=== PATIENT | male | born 1935 | race Caucasian/White ===

== ENCOUNTER → 2016-12-27 | Outpatient (CLI) | payer OTHER ==
[~2016-12-27] MED LIST: ASPI-461 PO; CHOL20005 PO; CYAN100020 PO; DORZ1SOL OPB; FINA5TAB PO; LEVO75TA5 PO; LISI-461 PO; MULT-506 PO; RSTOPS OP; SIMV-150 PO
== END | disposition home or self-care (01) ==
LOC: C.PATHSPEC 17:17
PROVIDERS: ATTEND Plastic Surgery
DX: C44.222 Squamous cell carcinoma of skin of right ear and external auricular canal (principal)

== ENCOUNTER → 2018-01-01 | Day surgery (SDC) | payer OTHER ==
[2017-12-26 08:45] VITALS: BMI 26.0
[~2018-01-01] VITALS: Ht 180.3 cm; Wt 86.4 kg
[~2018-01-01] MED LIST changes: +CARV25TA2 PO; -CHOL20005 PO; -CYAN100020 PO; +CYCL0.052 OP; -DORZ1SOL OPB; +DORZ2SOL19 OP; +LIDOCAINE HCL 2% 2 ML VIAL (20MG/ML) ONE; -LISI-461 PO; +LISI20TA3 PO; +MIDAZOLAM HCL 1 MG/ML 2ML VIAL ONE; -MULT-506 PO; +ONDANSETRON INJ 2 MG/ML 2 ML VIAL ONE; +PROPOFOL IV EMULSION 10 MG/ML 20 ML VIAL ONE; -RSTOPS OP; +SODIUM CHLORIDE 0.9% 500ML 500 ML IV ONE; +TAMS0.4C38 PO
[2018-01-01 08:05] VITALS: Ht 180.3 cm; Wt 86.4 kg
[2018-01-01 08:16] VITALS: TEMP 36.3
--- NOTE | 2018-01-01 08:23 | Endo History and Physical ---
History & Physical Date of Service: Jan 01, 2018. Chief Complaint: HISTORY OF POLYPS Referring Physician: DR. ADAME History of Present Illness History of polyps. Past Medical History High Cholesterol, Heart Disease, Hypertension, Thyroid Disease Past Surgical History Hx Cardiac Surgery: Yes (HEART CATH, NO STENTS @ [facility]) Hx Internal Defibrillator: Yes (MEDITRONIC, PLACED 11/16/2014) Hx Pacemaker: Yes (MEDITRONIC, PLACED 11/16/2014) Hx Abdominal Surgery: Yes (HERNIA REPAIR) Hx of Implantable Prosthesis: No Hx Post-Op Nausea and Vomiting: No Hx Cancer Surgery: Yes (SKIN CANCER SPOTS REMOVED) Hx Thoracic Surgery: No Hx Orthopedic: No Hx Urinary Tract Surgery: No Family History Esophogeal CA Social History Smoking Status: Never Smoker Hx Substance Use: No Hx Alcohol Use: Yes (A BEER A MONTH) Allergies Coded Allergies: No Known Allergies (Unverified , 01/01/18) Current Medications Reported Home Medications Medications Dose Route/Sig Max Daily Dose Days Date Category Coreg (Carvedilol) 25 Mg Tab 25 Mg PO BID 12/26/17 Reported Flomax (Tamsulosin Hcl) 0.4 Mg Cap 0.4 Mg PO QAM 12/26/17 Reported Trusopt Oph (Dorzolamide Hcl) 2 % Colleen 1 Drops OP BID 12/26/17 Reported Restasis (Cyclosporine (Ophth)) 0.05 % Emu 1 Drop OP BID 12/26/17 Reported Prinivil (Lisinopril) 20 Mg Tab 20 Mg PO QAM 12/26/17 Reported Simvastatin 10 Mg Tab 10 Mg PO HS 09/22/14 Reported Proscar (Finasteride) 5 Mg Tab 5 Mg PO QAM 09/22/14 Reported Aspirin 81 Mg Tab 81 Mg PO QAM 09/22/14 Reported Levothyroxine Sodium 75 Mcg Tab 75 Mcg PO QAM 09/22/14 Reported Vital Signs Weight (Kilograms): 86.36 Height (Feet): 5 Height (Inches): 11 Date Time Temp Pulse Resp B/P (MAP) Pulse Ox O2 Delivery O2 Flow Rate FiO2 01/01/18 08:16 36.3 59 18 170/103 (125) 96 Room Air Physical Exam General Appearance: WD/WN, no apparent distress Respiratory/Chest: Auscultation: breath sounds normal, no wheezing Cardiovascular: Heart Auscultation: RRR, no murmurs Abdomen: Inspection & Palpation: soft, no tenderness, guarding & rebound Assessment and Plan Colonoscopy today.
--- NOTE | 2018-01-01 08:59 | Discharge Instructions ---
Endoscopy Patient Instructions Date / Procedure(s) Performed Jan 01, 2018. Colonoscopy Allergy Information Coded Allergies: No Known Allergies (Unverified , 01/01/18) Discharge Date / Findings Jan 01, 2018. Small polyp removed, diverticulosis. Medication Instructions Stopped Medication(s): ASA STOPPED 12/29/17 Restart Stopped Medication(s): Restart all medications today Provider Instructions Activity Restrictions - No exercising or heavy lifting for 24 hours. - Do not drink alcohol the day of the procedure. - Do not drive a car or operate machinery until the day after the procedure. - Do not make any important decisions or sign important papers in 24 hours after the procedure. Following Day: - Return to full activity which may include returning to work/school. Diet Start your diet with liquids and light foods (jello, soup, juice, toast). Then eat your usual diet if not nauseated. Treatment For Common After Affects For mild abdominal pain, bloating, or excessive gas: - Rest - Eat lightly - Lie on right side Follow-Up Information Follow-up with DR. ADAME as scheduled Anesthesia Information What You Should Know You have had a procedure that required some medicine to reduce anxiety and discomfort. This treatment is called moderate sedation. After receiving the treatment, you may be sleepy, but you will be able to breathe on your own. The effects of the treatment may last for several hours. Follow these instructions along with Activity/Diet recommendations noted above: * Do NOT do anything where dizziness or clumsiness would be dangerous. * Rest quietly at home today, then you can be up and about tomorrow. * Have a responsible person stay with you the rest of today. * You may have had an I.V. today. If so, you may take the dressing off later today. Recommendations Call your doctor if: * Trouble breathing * Continuous vomiting for more than 24 hours * Temperature above 101 degrees * Severe abdominal pain or bloating * Pain not relieved by pain medicine ordered * There is increased drainage or redness from any incision * A large amount of rectal bleeding greater than 2-3 tablespoons. (If you had a polyp/s removed or have hemorrhoids, a small amount of blood - from the rectum is to be expected.) * You have any unanswered questions or concerns. IN THE EVENT OF A SERIOUS EMERGENCY, GO TO THE NEAREST EMERGENCY ROOM Your discharge instructions were prepared by provider Harry Evans. Patient Instructions Signature Page Horace Roper Patient (or Guardian) Signature/Date: I have read and understand the instructions given to me by my caregivers. Caregiver/RN/Doctor Signature/Date: The above-named patient and/or guardian has received patient instructions on this date. + Original Patient Signature Page (only) stays with chart. Please make copy for patient.
[2018-01-01 09:30] VITALS: BP 154/90; PULSE 65; O2SAT 96
--- NOTE | 2018-01-01 09:44 | GI REPORT ---
Patient Name: Horace Roper Procedure Date: 01/01/2018 8:25 AM Date of : 1935 Admit Type: Outpatient Age: 82 Gender: Male Attending MD: Harry Evans MD Procedure: Colonoscopy Providers: Harry Evans MD Referring MD: Zac Harrison Indications: High risk colon cancer surveillance: Personal history of colonic polyps Medicines: Propofol per Anesthesia Complications: No immediate complications. Estimated blood loss: None. Estimated Blood Loss: Estimated blood loss: none. Procedure: Pre-Anesthesia Assessment: - Prior to the procedure, a History and Physical was performed, and patient medications, allergies and sensitivities were reviewed. The patient's tolerance of previous anesthesia was reviewed. - ASA Grade Assessment: III - A patient with severe systemic disease. After I obtained informed consent, the scope was passed under direct vision. Throughout the procedure, the patient's blood pressure, pulse, and oxygen saturations were monitored continuously. The scope was introduced through the anus and advanced to the terminal ileum, with identification of the appendiceal orifice and IC valve. The colonoscopy was performed with ease. The patient tolerated the procedure well. The quality of the bowel preparation was adequate to identify polyps. The bowel preparation used was split dose MIralax. Findings: A 2 mm polyp was found in the transverse colon. The polyp was sessile. The polyp was removed with a cold snare. Resection and retrieval were complete. Multiple large-mouthed diverticula were found in the entire colon. Verification of patient identification for the specimen was done by the physician and nurse using the patient's name, date and medical record number. Impression: - One 2 mm polyp in the transverse colon, removed with a cold snare. Resected and retrieved. - Diverticulosis in the entire examined colon. - The colon was otherwise normal to the terminal ileum with retroflexed views of the ascending colon and rectum. Recommendation: - Await pathology results. - Discharge patient to home (with escort). Harry Evans M.D. Harry Evans MD 01/01/2018 9:44:18 AM This report has been signed electronically. Note Initiated On: 01/01/2018 8:25 AM Number of Addenda: 0 I attest to the content of the Intraoperative Record and orders documented therein, exceptions below {[id number]}
--- NOTE | 2018-01-01 10:02 | Anesthesiology Progress Note ---
Anesthesia Post Op Note Date & Time Jan 01, 2018 at 10:02 Vital Signs Pain Intensity: 0 Vital Signs Past 12 Hours Date Time Temp Pulse Resp B/P (MAP) Pulse Ox O2 Delivery O2 Flow Rate FiO2 01/01/18 09:30 65 16 154/90 (111) 96 Room Air 01/01/18 09:16 65 16 129/76 (93) 96 Room Air 01/01/18 09:08 65 16 148/93 (111) 95 Room Air 01/01/18 09:01 65 16 125/77 (93) 97 Room Air 01/01/18 08:16 36.3 59 18 170/103 (125) 96 Room Air Notes Mental Status: alert / awake / arousable, participated in evaluation Pt Amnestic to Procedure: Yes Nausea / Vomiting: adequately controlled Pain: adequately controlled Airway Patency, RR, SpO2: stable & adequate BP & HR: stable & adequate Hydration State: stable & adequate Anesthetic Complications: no major complications apparent
== END | disposition home or self-care (01) ==
LOC: C.GI 07:26
PROVIDERS: ATTEND Internal Medicine Gastroenterology
DX: Z12.11 Encounter for screening for malignant neoplasm of colon (principal); D12.3 Benign neoplasm of transverse colon; Z86.010 Personal history of colon polyps; E78.5 Hyperlipidemia, unspecified; E78.00 Pure hypercholesterolemia, unspecified; I11.0 Hypertensive heart disease with heart failure; I50.9 Heart failure, unspecified; I25.2 Old myocardial infarction; Z85.828 Personal history of other malignant neoplasm of skin; Z79.82 Long term (current) use of aspirin

== ENCOUNTER 2023-04-18 15:28 | Inpatient (IN) ==
[2023-04-18 15:55] LABS: Basophils # (auto) 0.03 K/uL (0.00-0.20); Basophils % (auto) 0.5 %; Eosinophils # (auto) 0.17 K/uL (0.00-0.50); Eosinophils % (auto) 2.8 %; Hematocrit (blood only) 40.1 % (42.0-52.0); Hemoglobin 13.1 g/dl (14.0-18.0); Immature Granulocytes # (auto) 0.01 K/uL (0.01-0.20); Immature Granulocytes % (auto) 0.2 %; Lymphocytes # (auto) 1.18 K/uL (1.20-3.40); Lymphocytes % (auto) 19.4 %; Mean Corpuscular Hgb Conc 32.7 g/dL (32.0-36.0); Mean Platelet Volume 10.9 fL (9.4-12.4); Monocytes # (auto) 0.67 K/uL (0.11-0.59); Neutrophils # (auto) 4.02 K/uL (1.40-6.50); Neutrophils % (auto) 66.1 %; Platelet Count 132 K/uL (130-400); RDW Coefficient of Variation 13.3 % (11.5-14.5); RDW Standard Deviation 45.3 fL (36.4-46.3); Red Blood Count 4.36 M/uL (4.70-6.10); White Blood Count 6.08 K/ul (4.8-10.8)
[2023-04-18 16:09] LABS: Alanine Aminotransferase 22 U/L (7-52); Albumin Globulin Ratio 1.5 (0.9-2); Alkaline Phosphatase 55 U/L (34-104); Anion Gap 5 (3-11); Aspartate Aminotransferase 23 U/L (13-39); BUN Creatinine Ratio 18.9 (10-20); Bilirubin,Total 1.2 mg/dl (0.2-1.0); Blood Urea Nitrogen 20 mg/dl (6-23); Calcium 10.1 mg/dl (8.6-10.3); Carbon Dioxide 29 mmol/L (21-32); Chloride 103 mmol/L (98-107); Est GFR (African American) 72.3 ml/min; Est GFR (Non-African American) 62.4 ml/min; Globulin 2.7 gm/dl (2.5-4.0); Glucose 105 mg/dl (70-99(Fasting)); Potassium 4.3 mmol/L (3.5-5.1); Sodium 137 mmol/L (136-145); Total Protein 6.7 gm/dl (6.0-8.3)
[2023-04-18 16:15] LABS: Troponin I High Sensitivity 34.4 pg/ml (0-20)
[2023-04-18 16:20] LABS: INR 1.2 (0.9-1.1); Partial Thromboplastin Ratio 0.9; Partial Thromboplastin Time 26.5 Seconds (21.0-31.0); Prothrombin Time 13.5 Seconds (9.0-12.0)
--- NOTE | 2023-04-18 16:21 | XRay Report ---
XR chest 1V not portable CLINICAL HISTORY: Chest pain, nonspecific TECHNIQUE: Single frontal radiograph of the chest was obtained. Comparison: None available at the time of this dictation. FINDINGS: Pacemaker defibrillator is seen. Calcified aortic knob is seen. The lungs are clear. No evidence of p leural effusion or pneumothorax. IMPRESSION: No acute chest disease. ACT 112: Negative or not required by law. Electronically signed by: Donte Summers M.D. 04/18/2023 4:19 PM
--- NOTE | 2023-04-18 16:49 | Electrocardiogram Report ---
Test Reason : Blood Pressure : / mmHG Vent. Rate : 074 BPM Atrial Rate : 326 BPM P-R Int : 126 ms QRS Dur : 192 ms QT Int : 516 ms P-R-T Axes : 000 -75 089 degrees QTc Int : 572 ms AV dual-paced rhythm with occasional ventricular-paced complexes and with occasional Premature ventri cular complexes Abnormal ECG No previous ECGs available Confirmed by Dakota Alvarez ([id number]) on 04/18/2023 4:49:00 PM Referred By: Confirmed By:Dakota Alvarez
[2023-04-18] MEDS ORDERED: FUROSEMIDE 40 MG/4 ML VIAL IV ONE (17:54)
--- NOTE | 2023-04-18 17:57 | Emergency Department Note ---
Impression & Plan Acute exacerbation of CHF (congestive heart failure), Non-ST elevation [place] (NSTEMI), Shortness of breath ED Provider Note HISTORY OF PRESENT ILLNESS: Patient is an 87-year-old male presenting with shortness of breath and bilateral lower extremity swelling. Patient reports that he has been feeling short of breath with exertion over the last 3 to 4 days. He reports that in the last 3 days he has been unable to sleep secondary to feeling very short of breath with laying flat. He saw his primary care provider today and patient states that his primary doctor "saw something on my chest x-ray, gave me a fluid pill and sent me here." Patient denies any chest pain. He states that his legs have been swelling over the last 3 days. He was unable to put on his normal shoes today secondary to swelling. Denies any DVT or PE history. He is on a baby aspirin daily. Denies any abdominal pain, nausea or vomiting. Denies any fevers ROS: as above PHYSICAL EXAM: Constitutional: Patient appears in no acute distress. HENT: Head: Normocephalic and atraumatic. Eyes: EOMI, PERRL Mouth/Throat: Mucous membranes moist. Neck: Trachea midline. Neck supple. Cardiovascular: Paced rhythm. No murmurs, rubs or gallops. Intact distal pulses. Pulmonary/Chest: No respiratory distress. Breath sounds clear and equal bilaterally. No wheezes or rales. Patient is conversationally dyspneic. Abdominal: Abdomen soft, no tenderness, rebound or guarding. Musculoskeletal: No tenderness or deformity noted. +2 pitting edema of bilateral legs extending to mid-tibia Skin: Warm and dry. No rash, erythema, pallor or cyanosis Psychiatric: Appropriate mood and affect for situation. Neurological: Alert and keenly responsive. CN II-XII grossly intact, moving all extremities equally and fully. MDM: - Vitals signs showed hypertension. - History obtained via patient. Patient presents with shortness of breath and bilateral lower extremity swelling. Patient reports has been feeling short of breath with exertion over the last 3 to 4 days. He has been unable to sleep in the last 3 days secondary to profound orthopnea. He saw his PCP today who given a dose of Lasix and sent him to the ER. Patient denies any chest pain. States he has been having swelling in his lower legs for the last 3 days. Denies any abdominal pain, nausea or vomiting. Denies any fevers. - Chronic conditions affecting care: HTN; HLD; prostate cancer; CAD - Differential diagnoses include, but are not limited to: Congestive heart failure; acute coronary syndrome; COPD/asthma exacerbation; pulmonary edema; pulmonary embolism; pneumonia; pneumothorax; viral syndrome - Order placed for continuous cardiac monitoring. At this time, monitor showed rate of 76 bpm with paced rhythm, per my interpretation. - External medical records reviewed. Primary care provider visit note dated 04/18/2023 was reviewed. Patient saw his PCP earlier today through [facility]. Per documentation he had presented for an increased cough and shortness of breath with laying flat. He was started on torsemide 20 mg by mouth daily. - EKG reviewed by myself showed AV paced rhythm. Rate 74 bpm - Laboratory workup interpreted by myself showed normal WBC; stable electrolytes; normal creatinine; elevated troponin (34.4); elevated BNP (1313) - CXR showed some pulmonary vascular congestion, per my interpretation - Patient given 40 mg IV lasix. - On review of patient's chart, he has not had an echocardiogram of his heart to assess his EF. - Discussion was had with patient care associate about patient's case and need for admission - Hospitalist consulted for admission - Patient admitted to [facility] hospitalist service for further evaluation and management. ASSESSMENT AND PLAN: Diagnosis: CHF exacerbation; NSTEMI; shortness of breath Plan: Admit Past Med/Surg History Social History Smoking Status: Never smoker Hx Alcohol Use: Yes Hx Substance Use: No Beliefs That Will Affect Care: None Current Living Situation: Spouse Feels Safe at Home: Yes Assistive Devices: Cane Allergies Allergies Allergy/AdvReac Type Severity Reaction Status Date / Time No Known Allergies Allergy Verified 04/18/23 18:07 Home Meds Home Medications Medication Instructions Recorded Confirmed atorvastatin 40 mg tablet 40 mg PO HS 08/15/22 04/18/23 oxybutynin chloride 5 mg 5 mg PO DAILY 08/15/22 04/18/23 tablet,extended release 24 hr aspirin 81 mg tablet,delayed 81 mg PO DAILY 04/18/23 04/18/23 release carvedilol 25 mg tablet 25 mg PO BID 04/18/23 04/18/23 cyclosporine 0.05 % eye drops in a 1 drp OPB DAILY 04/18/23 04/18/23 dropperette (Restasis) dorzolamide 22.3 mg-timolol 6.8 1 drp OPB BID 04/18/23 04/18/23 mg/mL eye drops finasteride 5 mg tablet 5 mg PO DAILY 04/18/23 04/18/23 levothyroxine 75 mcg tablet 75 mcg PO DAILYBB 04/18/23 04/18/23 lisinopril 30 mg tablet 30 mg PO DAILY 04/18/23 04/18/23 multivitamin 1 tab PO DAILY 04/18/23 04/18/23 naproxen sodium 220 mg tablet 220 mg PO DAILY 04/18/23 04/18/23 tamsulosin 0.4 mg capsule (Flomax) 0.4 mg PO DAILY 04/18/23 04/18/23 torsemide 20 mg tablet 20 mg PO QAM 04/18/23 04/18/23 Results & Data (ED) Vital Signs Vital Signs - 24 hr 04/18/23 15:33 04/18/23 15:33 Temperature 36.5 C Temperature Source Oral Pulse Rate 76 Respiratory Rate 22 Blood Pressure 160/107 H Blood Pressure Mean 124 Blood Pressure Position Sitting Pulse Oximetry 95 95 Oxygen Delivery Method Room Air Room Air Sepsis Recent Fever Within 48 Hours No Sepsis New/Unexplained Change in Mental Status No Sepsis Action Taken by Nursing No Action Required Laboratory Data 04/18/23 15:41 04/18/23 15:41 Lab Results 04/18/23 04/18/23 Range/Units 15:41 17:46 WBC 6.08 (4.8-10.8) K/ul RBC 4.36 L (4.70-6.10) M/uL Hgb 13.1 L (14.0-18.0) g/dl Hct 40.1 L (42.0-52.0) % MCV 92.0 (80.0-100.0) fL MCH 30.0 (25.0-34.0) pg MCHC 32.7 (32.0-36.0) g/dL RDW Std Deviation 45.3 (36.4-46.3) fL RDW Coeff of Monika 13.3 (11.5-14.5) % Plt Count 132 (130-400) K/uL MPV 10.9 (9.4-12.4) fL Immature Gran % (Auto) 0.2 % Neut % (Auto) 66.1 % Lymph % (Auto) 19.4 % Mariposa % (Auto) 11.0 % Eos % (Auto) 2.8 % Baso % (Auto) 0.5 % Neut # (Auto) 4.02 (1.40-6.50) K/uL Lymph # (Auto) 1.18 L (1.20-3.40) K/uL Mariposa # (Auto) 0.67 H (0.11-0.59) K/uL Eos # (Auto) 0.17 (0.00-0.50) K/uL Baso # (Auto) 0.03 (0.00-0.20) K/uL Immature Gran # (Auto) 0.01 (0.01-0.20) K/uL PT 13.5 H (9.0-12.0) Seconds INR 1.2 H (0.9-1.1) APTT 26.5 (21.0-31.0) Seconds PTT Ratio 0.9 Sodium 137 (136-145) mmol/L Potassium 4.3 (3.5-5.1) mmol/L Chloride 103 (98-107) mmol/L Carbon Dioxide 29 (21-32) mmol/L Anion Gap 5 (3-11) BUN 20 (6-23) mg/dl Creatinine 1.06 (0.6-1.4) mg/dl Est Cr Clr Drug Dosing Not Reportable Est GFR ( Amer) 72.3 ml/min Est GFR (Non-Af Amer) 62.4 ml/min BUN/Creatinine Ratio 18.9 (10-20) Glucose 105 H (70-99(Fasting)) mg/dl Calcium 10.1 (8.6-10.3) mg/dl Total Bilirubin 1.2 H (0.2-1.0) mg/dl AST 23 (13-39) U/L ALT 22 (7-52) U/L Alkaline Phosphatase 55 (34-104) U/L Troponin I High Sens 34.4 H 36.4 H (0-20) pg/ml B-Natriuretic Peptide 1313 H (0-100) pg/ml Total Protein 6.7 (6.0-8.3) gm/dl Albumin 4.0 (3.4-5.0) gm/dl Globulin 2.7 (2.5-4.0) gm/dl Albumin/Globulin Ratio 1.5 (0.9-2) Imaging Data Radiologist's Impression: Chest X-Ray 04/18/23 15:36 XR chest 1V not portable CLINICAL HISTORY: Chest pain, nonspecific TECHNIQUE: Single frontal radiograph of the chest was obtained. Comparison: None available at the time of this dictation. FINDINGS: Pacemaker defibrillator is seen. Calcified aortic knob is seen. The lungs are clear. No evidence of pleural effusion or pneumothorax. IMPRESSION: No acute chest disease. ACT 112: Negative or not required by law. Electronically signed by: Donte Summers M.D. 04/18/2023 4:19 PM Discharge Plan Visit Data Chief Complaint: Shortness of Breath/Dyspnea Stated Complaint: REF BY , BHARGAVI, COUGHING UP MUCUS ED Provider: Radha Holguin Discharge Problem: Acute exacerbation of CHF (congestive heart failure), Non-ST elevation [place] (NSTEMI), Shortness of breath Forms Stand Alone Forms: My [facility] Prescriptions Prescriptions: No Action atorvastatin 40 mg Tablet 40 mg PO HS oxybutynin chloride 5 mg Tablet Extended Release 24hr 5 mg PO DAILY multivitamin Tablet 1 tab PO DAILY carvedilol 25 mg Tablet 25 mg PO BID Rx Instructions: must administer with a meal/food torsemide 20 mg tablet 20 mg PO QAM aspirin 81 mg Tablet,Delayed Release (Dr/Ec) 81 mg PO DAILY levothyroxine 75 mcg Tablet 75 mcg PO DAILYBB tamsulosin [Flomax] 0.4 mg Capsule 0.4 mg PO DAILY naproxen sodium 220 mg Tablet 220 mg PO DAILY lisinopril 30 mg Tablet 30 mg PO DAILY dorzolamide-timolol 22.3-6.8 mg/mL Drops 1 drp OPB BID finasteride 5 mg Tablet 5 mg PO DAILY cyclosporine [Restasis] 0.05 % Dropperette 1 drp OPB DAILY Referrals Referrals: Zac Harrison MD [Primary Care Provider] -
[2023-04-18 18:25] LABS: Troponin I High Sensitivity 36.4 pg/ml (0-20)
--- NOTE | 2023-04-18 18:30 | History & Physical Report ---
Date of Service April 18, 2023 Assessment & Plan (1) Acute on chronic HFrEF (heart failure with reduced ejection fraction): (2) Ischemic cardiomyopathy: (3) CAD (coronary artery disease): (4) Presence of combination internal cardiac defibrillator (ICD) and pacemaker: (5) HTN (hypertension): (6) HLD (hyperlipidemia): Plan This is an 87-year-old male with significant past medical history of chronic systolic CHF, CKD, HTN, AICD, history of ischemic cardiomyopathy, HLD, hypothyroidism, history of prostate cancer, BPH, glaucoma who presents to ED secondary to worsening lower extremity swelling and orthopnea. Acute on chronic HFrEF Ischemic Cardiomyopathy CAD Presence of AICD/Pacer admit to PCU consult cardiology Lasix 40mg IV given in ED will start 40mg IV lasix daily, along with 20meq KCL and 12.5mg of aldactone due to elevated BP obtain updated echo, last 2019 reviewed in epic, EF 25% strict intake and output, daily weights low sodium diet, FR 1800 pt was just started on torsemide in clinic today and received 1 dose, previously was not on diuretics given lower ext edema will obtain b/l venous dopplers in setting of elevated OP dimer HTN bp elevated in ED, will have nursing repeat pt receiving lasix will monitor continue coreg, lisinopril HLD chronic, stable continue statin Hx of PAF per cardiology notes not anticoag candidate due to falls and previous SDH normal sinus rhythm, continue coreg Hx of prostate ca undergoing surveillance Glaucoma continue eye gtts Hypothyroidism continue statin Full Code DVT ppx: SQ Lovenox PCP: Hunter Dispo: admit to PCU Pt was seen and examined in collaboration with Dr. Lares, please see addendum History of Present Illness Chief Complaint: Shortness of breath and orthopnea for 1.5 weeks; lower extremity edema for 5 days. Primary Care Provider: Zac Harrison MD This is an 87-year-old male with significant past medical history of chronic systolic CHF, CKD, HTN, AICD, history of ischemic cardiomyopathy, HLD, hypothyroidism, history of prostate cancer, BPH, glaucoma who presents to ED secondary to worsening lower extremity swelling and orthopnea. He was seen and evaluated by PCP today. Outpatient lab work was obtained including CBC, CMP, D- dimer, BNP and chest x-ray. His BNP was elevated at 6798 and per ED provider outpatient chest x-ray concerning for volume overload. He received 1 dose of oral torsemide 20 mg in clinic. He was then referred to ED for further evaluation. Outpatient echocardiogram was last done in April 2020 which re vealed LVEF of 25 to 29%, large sized apical, septal, anterior septal, anterior, inferior, posterior and lateral wall motion abnormality with mild hypokinesis to dyskinesis of the segments, there is a small sized apical scar with entire apex akinetic to mildly dyskinetic as well as grade 2 diastolic dysfunction. Patient follows with [facility] cardiology. He has a significant cardiac history for a nterior myocardial infarction 1995, treated with tPA; catheterization with chronic total occlusion of the LAD, coronary disease not amenable to revascularization, severe ischemic cardiomyopathy, prior syncope with resultant traumatic brain injury, subdural hematoma August 2014, history of nonsustained V. tach, left bundle branch block, history of Medtronic biventricular pacemaker implantation on November 16, 2014, status post biventricular generator change on 08/15/2022, history of asymptomatic paroxysmal atrial fibrillation/flutter although patient with anemia, thrombocytopenia and prior falls therefore risk of anticoagulation felt to be greater than benefit. His implanted device was last evaluated February,. He presents today with worsening dyspnea on exertion orthopnea for a week and a half along with lower extremity swelling for the past 3 to 4 days. is at bedside who also helps elicit history. He states initially his symptoms started where he would be more short of breath with exertion and was still able to walk half a mile a day. Currently he cannot walk the length of the ER room without getting short of breath. Over the last 2 nights he has not slept well due to complaints of orthopnea which requires him to sleep sitting up. He feels he has not slept for the last 48 hours. He is also having a productive cough with clear to white sputum. He denies any hemoptysis. He denies fever, chills, sweats, recent illness, lightheadedness, dizziness, chest pain, PND, hemoptysis, nausea, vomiting, abdominal pain, change in bowel or urinary habits. He has been compliant with his medications. Allergies Allergy/AdvReac Type Severity Reaction Status Date / Time No Known Allergies Allergy Verified 04/18/23 18:07 Home Medications Medication Instructions Recorded Confirmed Type atorvastatin 40 mg tablet 40 mg PO HS 08/15/22 04/18/23 History oxybutynin chloride 5 mg 5 mg PO DAILY 08/15/22 04/18/23 History tablet,extended release 24 hr aspirin 81 mg tablet,delayed 81 mg PO DAILY 04/18/23 04/18/23 History release carvedilol 25 mg tablet 25 mg PO BID 04/18/23 04/18/23 History cyclosporine 0.05 % eye drops in a 1 drp OPB DAILY 04/18/23 04/18/23 History dropperette (Restasis) dorzolamide 22.3 mg-timolol 6.8 1 drp OPB BID 04/18/23 04/18/23 History mg/mL eye drops finasteride 5 mg tablet 5 mg PO DAILY 04/18/23 04/18/23 History levothyroxine 75 mcg tablet 75 mcg PO DAILYBB 04/18/23 04/18/23 History lisinopril 30 mg tablet 30 mg PO DAILY 04/18/23 04/18/23 History multivitamin 1 tab PO DAILY 04/18/23 04/18/23 History naproxen sodium 220 mg tablet 220 mg PO DAILY 04/18/23 04/18/23 History tamsulosin 0.4 mg capsule (Flomax) 0.4 mg PO DAILY 04/18/23 04/18/23 History torsemide 20 mg tablet 20 mg PO QAM 04/18/23 04/18/23 History Past Med/Surg History Medical History (Updated 04/18/23 @ 19:22 by Vonnie Ledezma PA-C) Glaucoma BPH (benign prostatic hyperplasia) Prostate CA HLD (hyperlipidemia) HTN (hypertension) Presence of combination internal cardiac defibrillator (ICD) and pacemaker Ischemic cardiomyopathy CAD (coronary artery disease) Chronic HFrEF (heart failure with reduced ejection fraction) Surgical History (Updated 04/18/23 @ 19:13 by Vonnie Ledezma PA-C) Hx of hernia repair Hx of bilateral cataract extraction Hx of prostate biopsy Hx of colonoscopy History of ankle surgery Hx of cardiac cath Family History Other Cancer Coronary heart disease Social History (Updated 04/18/23 @ 19:14 by Vonnie Ledezma PA-C) Smoking Status: Never smoker Tobacco Type: Smokeless Tobacco (Dip or Chew) Hx Alcohol Use: Yes Alcohol type: beer Alcohol type Comment: rare Hx Substance Use: No Preferred Language: [place] Beliefs That Will Affect Care: None marital status: Current Living Situation: Spouse Feels Safe at Home: Yes Assistive Devices: Cane Review of Systems Review of Systems: All systems reviewed & are unremarkable except as noted in HPI & below Physical Exam Physical Exam: Constitutional: WD/WN, vitals as above, NAD, sitting up in bed, pleasant, conversing easily Head: Normocephalic, Atraumatic Eyes: PERRL, conjunctivae normal, anicteric sclerae ENMT: external ear and nose normal, oropharynx normal Neck: trachea midline, no thyromegaly normal visual inspection Respiratory: normal respiratory effort, lungs clear to auscultation with decreased breath sounds at bases, no wheeze, rales, rhonchi. Normal insp/exp effort, no accessory muscle use Cardiovascular: RRR, S1,S2,S4, no murmur, +2 pretibial edema, b/l pretibial excoriations noted Vessels: no JVD or carotid bruit Chest: normal inspection of chest Abdomen: normal bowel sounds, soft, nontender, no hepatosplenomegaly Musculoskeletal: no cyanosis or clubbing, extremities motor strength 5/5 Skin: no rashes, warm and dry normal turgor Neurologic: PERRL, EOMI, accommodation nl, no face palsy, no dysarthria CN's II-XI intact bilaterally and moves all extremities Psychiatric: A+Ox3, euthymic affect : deferred Results & Data Results & Data Vital Signs (Past 12 Hours) Vital Signs Temp Pulse Resp BP Pulse Ox O2 Del Method 04/18/23 15:33 95 Room Air 04/18/23 15:33 36.5 C 76 22 160/107 H 95 Room Air Diagnostic Findings Chest X-Ray 04/18/23 15:36 XR chest 1V not portable CLINICAL HISTORY: Chest pain, nonspecific TECHNIQUE: Single frontal radiograph of the chest was obtained. Comparison: None available at the time of this dictation. FINDINGS: Pacemaker defibrillator is seen. Calcified aortic knob is seen. The lungs are clear. No evidence of pleural effusion or pneumothorax. IMPRESSION: No acute chest disease. ACT 112: Negative or not required by law. Electronically signed by: Donte Summers M.D. 04/18/2023 4:19 PM Medications Administered Medication List Discontinued Medications Furosemide (Furosemide 40 Mg/4 Ml Vial) 40 mg IV ONE ONE Stop: 04/18/23 17:55 Last Admin: 04/18/23 18:56 Dose: 40 mg Documented By: MANAGER PARTY ECG Additional Comments: 74 bpm paced rhythm COVID-19 Results Results COVID-19 Adm Lab Results: RBC 4.36 M/uL (4.70-6.10) L 04/18/23 WBC 6.08 K/ul (4.8-10.8) 04/18/23 Hgb 13.1 g/dl (14.0-18.0) L 04/18/23 Hct 40.1 % (42.0-52.0) L 04/18/23 Plt Count 132 K/uL (130-400) 04/18/23 Neutrophils (%) (Auto) 66.1 % 04/18/23 Lymphocytes (%) (Auto) 19.4 % 04/18/23 Monocytes # (Auto) 0.67 K/uL (0.11-0.59) H 04/18/23 Eosinophils # (Auto) 0.17 K/uL (0.00-0.50) 04/18/23 Immature Granulocyte % (Auto) 0.2 % 04/18/23 Neutrophils # (Auto) 4.02 K/uL (1.40-6.50) 04/18/23 Lymphocytes # (Auto) 1.18 K/uL (1.20-3.40) L 04/18/23 Monocytes # (Auto) 0.67 K/uL (0.11-0.59) H 04/18/23 Eosinophils # (Auto) 0.17 K/uL (0.00-0.50) 04/18/23 Basophils # (Auto) 0.03 K/uL (0.00-0.20) 04/18/23 Immature Granulocyte # (Auto) 0.01 K/uL (0.01-0.20) 3 Na 137 mmol/L (136-145) 04/18/23 K 4.3 mmol/L (3.5-5.1) 04/18/23 Cl 103 mmol/L (98-107) 04/18/23 CO2 29 mmol/L (21-32) 04/18/23 Anion Gap 5 (3-11) 04/18/23 BUN 20 mg/dl (6-23) 04/18/23 Creatinine 1.06 mg/dl (0.6-1.4) 04/18/23 BUN/Creatinine Ratio 18.9 (10-20) 04/18/23 Glucose Level 105 mg/dl (70-99(Fasting)) H 04/18/23 Ca 10.1 mg/dl (8.6-10.3) 04/18/23 Total Bilirubin 1.2 mg/dl (0.2-1.0) H 04/18/23 AST/SGOT 23 U/L (13-39) 04/18/23 ALT/SGPT 22 U/L (7-52) 04/18/23 Alkaline Phosphatase 55 U/L (34-104) 04/18/23 Total Protein 6.7 gm/dl (6.0-8.3) 04/18/23 Albumin 4.0 gm/dl (3.4-5.0) 04/18/23 Globulin 2.7 gm/dl (2.5-4.0) 04/18/23 Albumin/Globulin Ratio 1.5 (0.9-2) 04/18/23 PTT 26.5 Seconds (21.0-31.0) 04/18/23 INR 1.2 (0.9-1.1) H 04/18/23 Chest X-Ray 04/18/23 Code Status & VTE Plan Code Status FULL CODE Supervising Physician Co-Signing Physician Notes I have seen and discussed the case with the collaborating JOSE RAMON. I agree with the above H&P. I have reviewed and confirmed the patients medical history, the findings on physical examination, and the patients diagnosis and treatment plan with Brisa ALBRIGHT and agree with the information documented. In short, Mr. Roper with an 87-year-old male with significant past medical history of chronic systolic CHF, CKD, HTN, AICD, history of ischemic cardiomyopathy, HLD, hypothyroidism, history of prostate cancer, BPH, glaucoma admitted for acute on chronic HFrEF. Patient states he isn't on a diuretic at home, but was just trialed on torsemide after a visit with his pcp 04/18 for SOB. He notes over a week of progressive orthopnea and [place]. PE is notable for a pleasant gentleman reporting notable improvement since IV lasix. Crackles bibasilar. RRR on heart exam, device pocked well healed surgical incision. Bilateral lower extremity edema 2+. Plan #Acute on chronic HFrEF (LVEF 25% on 2019) - Factors leading to exacerbation unclear: endorses med compliance, no illness, no changes to diet - Home diuretics: none, 04/18 prescribed torsemide 20 - GDMT: *BetaB: Coreg 25mg BID *RAAS: c/w home lisinopril 30mg *Jose: Started Spironolactone 12.5mg daily *SGLT: consider addition contingent on pressures *ICD: 07/2022 generator change, 2014 placed - s/p lasix 40 in the ED - Will start aggressive diuresis with IV 40mg daily - Strict I/Os, daily weights Rest of plan as above
[2023-04-18] MEDS ORDERED: SPIRONOLACTONE 12.5 MG TAB PO ONE (19:33)
[2023-04-18] MEDS ORDERED: ONDANSETRON INJ 2 MG/ML 2 ML VIAL IV PRN (20:23)
[2023-04-18] MEDS ORDERED: ACETAMINOPHEN 325 MG TAB PO PRN (20:23)
[2023-04-18] MEDS ORDERED: MAGNESIUM HYDROXIDE SUSP 30 ML UDC PO PRN (20:23)
[2023-04-18] MEDS ORDERED: POLYETHYLENE (MIRALAX) 17 GM PACK PO PRN (20:23)
[2023-04-18] MEDS ORDERED: ALUMINUM/MAGNESIUM SUSP 30 ML UDC PO PRN (20:23)
[2023-04-18] MEDS ORDERED: ENOXAPARIN INJ 40 MG/0.4 ML SYR SQ SCH (21:00)
[2023-04-18] MEDS ORDERED: carvediloL 25 MG TAB PO SCH (21:00)
[2023-04-18] MEDS: DORZOLAMIDE/TIMOLOL 22.3/6.8MG/ML 10 ML BTL OPB SCH (21:17)
[2023-04-18] MEDS: ATORVASTATIN 40 MG TAB PO SCH (21:18)
[2023-04-18 21:47] LABS: Magnesium 1.9 mg/dl (1.7-2.4)
[2023-04-18] MEDS ORDERED: MAGNESIUM SULFATE / D5W 1 GM/100 ML BAG IV ONE (22:04)
--- NOTE | 2023-04-19 05:52 | Ultrasound Report ---
Exam(s): US VENOUS BILATERAL LOWER EXTREMITIES EXAM: US Duplex Bilateral Lower Extremities Veins CLINICAL HISTORY: Reason for exam: edema. TECHNIQUE: Real-time duplex ultrasound scan of the bilateral lower extremity veins integrating B-mode two-dimensional vascular structure, Doppler spectral analysis, color flow Doppler imaging and compression. COMPARISON: No relevant prior studies available. FINDINGS: Right deep veins: No DVT in the right common femoral, femoral, proximal deep femoral or popliteal veins. The veins demonstrate normal color flow, are normally compressible, with normal phasic flow and/or augmentation response. Right superficial veins: No thrombus in the visualized right great saphenous vein. Left deep veins: No DVT in the left common femoral, femoral, proximal deep femoral or popliteal veins. The veins demonstrate normal color flow, are normally compressible, with normal phasic flow and/or augmentation response. Left superficial veins: No thrombus in the visualized left great saphenous vein. Soft tissues: No acute findings. No popliteal cyst. IMPRESSION: No evidence of DVT. Electronically signed by: Kendell Benedict M.D. 04/19/23 05:52 AM
[2023-04-19] MEDS ORDERED: PERFLUTREN LIPID MICROSPHERE (DEFINITY) IV ONE (07:12)
[2023-04-19] MEDS: LEVOTHYROXINE SODIUM 75 MCG TABLET PO SCH (07:23)
[2023-04-19 07:49] LABS: Basophils # (auto) 0.03 K/uL (0.00-0.20); Basophils % (auto) 0.5 %; Eosinophils # (auto) 0.19 K/uL (0.00-0.50); Eosinophils % (auto) 3.4 %; Hematocrit (blood only) 38.2 % (42.0-52.0); Hemoglobin 12.6 g/dl (14.0-18.0); Immature Granulocytes # (auto) 0.01 K/uL (0.01-0.20); Immature Granulocytes % (auto) 0.2 %; Lymphocytes # (auto) 0.84 K/uL (1.20-3.40); Mean Corpuscular Hemoglobin 30.2 pg (25.0-34.0); Mean Corpuscular Volume 91.6 fL (80.0-100.0); Mean Platelet Volume 11.2 fL (9.4-12.4); Monocytes # (auto) 0.55 K/uL (0.11-0.59); Monocytes % (auto) 9.8 %; Neutrophils # (auto) 3.99 K/uL (1.40-6.50); Neutrophils % (auto) 71.1 %; Platelet Count 122 K/uL (130-400); RDW Coefficient of Variation 13.2 % (11.5-14.5); RDW Standard Deviation 44.2 fL (36.4-46.3); Red Blood Count 4.17 M/uL (4.70-6.10); White Blood Count 5.61 K/ul (4.8-10.8)
[2023-04-19 08:08] LABS: Albumin Globulin Ratio 1.6 (0.9-2); Albumin Level 3.6 gm/dl (3.4-5.0); BUN Creatinine Ratio 19.4 (10-20); Bilirubin,Total 1.3 mg/dl (0.2-1.0); Calcium 9.4 mg/dl (8.6-10.3); Creatinine Clr Calc Pharmacy 56.7 ml/min; Est GFR (African American) 84.7 ml/min; Globulin 2.3 gm/dl (2.5-4.0); Magnesium 1.9 mg/dl (1.7-2.4); Potassium 3.7 mmol/L (3.5-5.1); Total Protein 5.9 gm/dl (6.0-8.3)
[2023-04-19] MEDS: SPIRONOLACTONE 12.5 MG TAB PO SCH (08:34)
[2023-04-19] MEDS: lisinopril 10 MG TAB PO SCH (08:35)
[2023-04-19] MEDS: carvediloL 25 MG TAB PO SCH ×2 (08:35→20:35)
[2023-04-19] MEDS: OXYBUTYNIN CHLORIDE XL 5 MG TABCR PO SCH (08:37)
[2023-04-19] MEDS: TAMSULOSIN HCL 0.4 MG CAP PO SCH (08:37)
[2023-04-19] MEDS: FUROSEMIDE 40 MG/4 ML VIAL IV SCH (08:38)
[2023-04-19] MEDS: ASPIRIN 81 MG ECTAB PO SCH (08:38)
[2023-04-19] MEDS: MULTIVITAMIN TAB PO SCH (08:38)
[2023-04-19] MEDS: DORZOLAMIDE/TIMOLOL 22.3/6.8MG/ML 10 ML BTL OPB SCH ×2 (08:39→20:36)
[2023-04-19] MEDS: FINASTERIDE 5 MG TAB PO SCH (08:39)
[2023-04-19] MEDS: POTASSIUM CHLORIDE CRTAB 20 MEQ TABCR PO SCH (08:42)
[2023-04-19] MEDS: ARTIFICIAL TEARS OP SCH (08:42)
--- NOTE | 2023-04-19 10:03 | Cardiology Consultation ---
Date of Consultation April 19, 2023 Assessment & Plan (1) Acute on chronic HFrEF (heart failure with reduced ejection fraction): (2) Ischemic cardiomyopathy: (3) Non-ST elevation CT (NSTEMI): (4) PAF (paroxysmal atrial fibrillation): Plan Acute on chronic decompensated systolic congestive heart failure, HFrEF Continue IV furosemide 40 mg/day Will need oral loop diuretic on discharge (has Torsemide 20 mg/day at home (prescribed yesterday) Agree with addition of low dose spironolactone Supplement potassium and magnesium noting asymptomatic NS-VT on telemetry. Await resting echocardiography interpretation Continue GDMT Carvedilol, lisinopril, moderate intensity statin therapy (atorvastatin 40 mg/day), and ASA 81 mg/day. [facility] Consultation, RE: Lisinopril -> Entresto, addition of Jardiance Supervising Physician Co-Signing Physician Notes 87-year-old patient seen and examined at the bedside. Admitted with progressive dyspnea on exertion, edema, and orthopnea. Significantly improved after 2 doses of IV furosemide. Fluid balance negative more than 3 L. Denies chest pain or heaviness. No palpitations, lightheadedness or dizziness. PE: Gen: NAD. Awake and alert. Heart: Regular rhythm. Normal S1-S2. No murmur. Lungs: Rales at the bases bilaterally. Extremities: 1+ bilateral pretibial edema. A/P: Agree with above PA-C history, physical exam, assessment and plan. Continue IV diuretic therapy, furosemide 40mg daily. Add low-dose spironolactone. Monitor daily weight, fluid balance, GFR, and electrolytes. Supplement potassium and magnesium as indicated. Transition from lisinopril to Entresto as outpatient. Consider addition of Jardiance. Reviewed 2D transthoracic echocardiogram when available. History of Present Illness Reason for Consultation: Acute HFrEF Requesting Physician: Jay Ledezma Attending Physician: Dr. Bryant History of Present Illness Mr. Horace Kinsey is a 87-year-old male who presented to the ER on April 18, 2023 with complaints of shortness of breath, orthopnea, and bilateral lower extremity peripheral edema, issues progressive over the last few days. Prior to arrival, on 04/18/2023 patient was evaluated by Dr. Harrison and prescribed Torsemide 20 mg/day. He notes starting the Torsemide on 04/18/2023, experiencing brisk diuresis one hour after taking Torsemide and with some improvement in dyspnea. - Admission EKG revealed AV dual paced rhythm with occasional ventricular paced complexes and occasional PVCs. - Chest x-ray: No acute chest disease. - B-Natriuretic Peptide 1,313 pg/mL. - Troponin: 34.4 -> 36.4 -> 40.6 -> 36.9 pg/mL Patient received 40 mg IV furosemide in the ER. 40 mg IV furosemide daily ordered on admission along with low dose spironolactone. Urine output 3,010, I/O's negative 2,910 mL's since admission No chest pain or discomfort. No tachypalpitations. No dizziness, near syncope, or syncope. No fevers, chills, or sweats. No melena, hematochezia, or hematuria. Past Medical and Surgical History: ASCVD Anterolateral myocardial infarction in 1995, treated with tPA per documentation Catheterization with chronic total occlusion of the LAD, coronary disease not amendable to revascularization per prior documentation Severe ischemic cardiomyopathy with severe left ventricular systolic dysfunction, ejection fraction 15% Prior syncope with resultant traumatic brain injury, subdural hematoma, August 2014, per documentation. Patient notes slipping on the ice, without loss of consciousness, resultant concussion Nonsustained ventricular tachycardia [place] [employer] Class 3 CHF Left bundle branch block Status post Medtronic biventricular pacemaker implantation on November 16, 2014 Status post biventricular generator change by Dr. 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 Patient with anemia, thrombocytopenia, and ambulatory dysfunction with prior falls, risks of anticoagulation felt to be greater than the benefit. Bilateral internal carotid artery disease Hypertension Dyslipidemia Acquired hypothyroidism BPH with LUTS Prostate cancer Open angle glaucoma History of detached retina status post vitrectomy Multiple colonoscopies with polypectomies Severe extensive diverticulosis Close right ankle fracture, bimalleolar fracture Cataract extraction Inguinal hernia repair Family History: Father at 55, esophageal cancer. Mother with CAD, passing around the age of 80. Son with mitral valve disease status post repair Social History: Nonsmoker. Former smokeless tobacco user. Rare alcohol. No illegal drug use. 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3 mg-timolol 6.8 1 drp OPB BID 04/18/23 04/18/23 History mg/mL eye drops finasteride 5 mg tablet 5 mg PO DAILY 04/18/23 04/18/23 History levothyroxine 75 mcg tablet 75 mcg PO DAILYBB 04/18/23 04/18/23 History lisinopril 30 mg tablet 30 mg PO DAILY 04/18/23 04/18/23 History multivitamin 1 tab PO DAILY 04/18/23 04/18/23 History naproxen sodium 220 mg tablet 220 mg PO DAILY 04/18/23 04/18/23 History tamsulosin 0.4 mg capsule (Flomax) 0.4 mg PO DAILY 04/18/23 04/18/23 History torsemide 20 mg tablet 20 mg PO QAM 04/18/23 04/18/23 History Patient History Medical History Glaucoma BPH (benign prostatic hyperplasia) Prostate CA HLD (hyperlipidemia) HTN (hypertension) Presence of combination internal cardiac defibrillator (ICD) and pacemaker Ischemic cardiomyopathy CAD (coronary artery disease) Chronic HFrEF (heart failure with reduced ejection fraction) Surgical History Hx of hernia repair Hx of bilateral cataract extraction Hx of prostate biopsy Hx of colonoscopy History of ankle surgery Hx of cardiac cath Family History Other Cancer Coronary heart disease Social History (Reviewed 04/19/23 @ 10:03 by Sesar Abbasi Smoking Status: Never smoker Tobacco Type: Smokeless Tobacco (Dip or Chew) Hx Alcohol Use: No Hx Substance Use: No Preferred Language: [place] Communication Ability: Effective Wire Setter Required: No Beliefs That Will Affect Care: None marital status: Current Living Situation: Spouse Other Information That Helps Us Care for You: No Feels Safe at Home: Yes Safety Concerns: Feels Safe At This Time Assistive Devices: Cane and Walker Review of Systems Review of Systems: Complete Review of Systems: Constitutional: No fevers, sweats, or chills. HEENT: Glaucoma. Cataracts status post extraction. No history of amaurosis fugax. Dentures top and bottom. Pulmonary: No history of asthma, emphysema, COPD, sleep apnea, or PE. Cardiac: See above. GI/Abd: No dysphagia. Reflux. No melena or hematochezia. CKD. Hematologic: No coagulation disorder, anemia, or abnormal bleeding. Musculoskeletal: Arthritis. Skin: No rash. Neurologic: No history of CVA. No history of seizure. Male : Prostate cancer. BPH. Endocrine: Denies diabetes. Complete Review of Systems is as stated above, negative, or noncontributory. Physical Exam Physical Exam: General: Hard of hearing. Alert, no distress, comfortable and cooperative. Skin: No rash. Eyes: PER. Conjunctiva pink, sclera clear. HENT: Normocephalic. Atraumatic. Neck: Bilateral carotid bruits. + JVD. +HJR. Chest: Left subclavian pacemaker/defibrillator Heart: Irregular at 74 bpm. Soft apical systolic murmur. PMI is displaced laterally. Lungs: Diminished at the bases. Right basilar rales. No wheeze. Abdomen: +BS. Soft. Nontender. No masses. No organomegaly. Extremities: 1-2+ edema. No clubbing. No cyanosis. Pulses: radial=2/4, posterior tibial=1/4. Limited neurological examination: No focal deficit. Results & Data Vital Signs (Past 12 Hours) Vital Signs Temp Pulse Resp BP Pulse Ox O2 Del Method 04/19/23 07:31 36.4 C L 71 18 152/93 H 92 Room Air 04/19/23 03:08 36.9 C 74 18 134/70 93 Room Air 04/18/23 23:16 36.4 C L 73 18 122/61 94 Room Air Laboratory Results Cardiac Enzymes 04/18/23 04/18/23 04/18/23 Range/Units 15:41 17:46 23:50 AST 23 (13-39) U/L Troponin I High Sens 34.4 H 36.4 H 40.6 H (0-20) pg/ml B-Natriuretic Peptide 1313 H (0-100) pg/ml 04/19/23 Range/Units 06:51 AST 18 (13-39) U/L Troponin I High Sens 36.9 H (0-20) pg/ml B-Natriuretic Peptide (0-100) pg/ml Coagulation 04/18/23 Range/Units 15:41 PT 13.5 H (9.0-12.0) Seconds APTT 26.5 (21.0-31.0) Seconds B-Natriuretic Peptide 1313 H (0-100) pg/ml CBC 04/18/23 04/19/23 Range/Units 15:41 06:51 WBC 6.08 5.61 (4.8-10.8) K/ul RBC 4.36 L 4.17 L (4.70-6.10) M/uL Hgb 13.1 L 12.6 L (14.0-18.0) g/dl Hct 40.1 L 38.2 L (42.0-52.0) % Plt Count 132 122 L (130-400) K/uL Neut # (Auto) 4.02 3.99 (1.40-6.50) K/uL Lymph # (Auto) 1.18 L 0.84 L (1.20-3.40) K/uL Will # (Auto) 0.67 H 0.55 (0.11-0.59) K/uL Eos # (Auto) 0.17 0.19 (0.00-0.50) K/uL Baso # (Auto) 0.03 0.03 (0.00-0.20) K/uL Comprehensive Metabolic Panel 04/18/23 04/19/23 Range/Units 15:41 06:51 Sodium 137 139 (136-145) mmol/L Potassium 4.3 3.7 (3.5-5.1) mmol/L Chloride 103 102 (98-107) mmol/L Carbon Dioxide 29 31 (21-32) mmol/L BUN 20 18 (6-23) mg/dl Creatinine 1.06 0.93 (0.6-1.4) mg/dl Glucose 105 H 84 (70-99(Fasting)) mg/dl Calcium 10.1 9.4 (8.6-10.3) mg/dl AST 23 18 (13-39) U/L ALT 22 19 (7-52) U/L Alkaline Phosphatase 55 45 (34-104) U/L Total Protein 6.7 5.9 L (6.0-8.3) gm/dl Albumin 4.0 3.6 (3.4-5.0) gm/dl Intake and Output 04/18/23 04/19/23 04/19/23 22:59 06:59 14:59 Intake Total 0 / 100 100 / 100 Output Total 1510 / 2560 1050 / 2560 450 / 450 Balance -1510 / -2460 -950 / -2460 -450 / -450 Intake: IV 100 / 100 Magnesium Sulfate / D5w 1 gm In 100 / 100 100 ml @ 50 mls/hr IV ONE ONE Rx#:[id number] Oral 0 / 0 Output: Urine 1510 / 2560 1050 / 2560 450 / 450 Other: Other Intake Source sips Weight 88.3 kg 87.2 kg Weight Measurement Method Built in [facility] Built in [facility] Diagnostic Findings March 22, 2023 device interrogation: Appropriate function. Remaining longevity: 7.5 years. Mode: DDDR. Lower rate 70 bpm. BiV paced 92.6%. OptiVol below threshold. + PAF. Venous duplex: No evidence of DVT. Telemetry: Predominantly paced, heart rates predominantly between 60 and 80 bpm, with occasional PVCs, 3 episodes of VT 6, 7, and 9 beats in duration
[2023-04-19] MEDS ORDERED: HEPARIN SODIUM/DEXTROSE 25,000 UNITS/500 ML BAG IV SCH (16:00)
--- NOTE | 2023-04-19 16:01 | Hospitalist Progress Note ---
Date of Service April 19, 2023 Assessment & Plan (1) Acute on chronic HFrEF (heart failure with reduced ejection fraction): (2) Ischemic cardiomyopathy: (3) CAD (coronary artery disease): (4) Presence of combination internal cardiac defibrillator (ICD) and pacemaker: (5) HTN (hypertension): (6) HLD (hyperlipidemia): Plan Patient is an 87 yr male with H/O Chronic systolic CHF, CKD, HTN, AICD, history of ischemic cardiomyopathy, HLD, hypothyroidism, history of prostate cancer, BPH, glaucoma who presents to ED secondary to worsening lower extremity swelling and orthopnea. Acute on chronic HFrEF Ischemic Cardiomyopathy CAD S/P AICD/Pacer --CXR:No acute chest disease. --ECHO: Study was technically adequate. Compared to most recent study available in [facility] medical record, apical laminar LV thrombus is now present. Left ventricle systolic function is severely reduced. Left ventricle is severely dilated. EF 15 to 20%. Apical septum is dyskinetic, the remaining apical segments are akinetic. Otherwise severe diffuse hypokinesis. There is no mobile apical laminar LV thrombus. Left atrium is severely dilated. Mild to moderate mitral regurgitation. Trace tricuspid regurgitation. Dilated inferior vena cava with reduced collapsibility with sniff indicates an elevated right atrial pressure of 15 mmHg. --Venous Doppler:No evidence of DVT. 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 due to falls and previous SDH continue coreg H/O Prostate ca undergoing surveillance Glaucoma continue eye gtts Hypothyroidism continue levothyroxine Code Status Full Code DVT Px: IV Heparin Admission and Anticipated Discharge Date Admission Date: April 18, 2023 Subjective Patient is seen and examined at bedside States feeling better today Less dyspnea today Orthopnea improving Still has leg edema Echo showed LV thrombus Denies any chest pain, nausea, vomiting, abdominal pain, dizziness Review of Systems Review of Systems: All systems reviewed & are unremarkable except as noted in Subjective Physical Exam Physical Exam: Physical Exam: Vitals signs as noted above General Appearance:Moderately built and nourished, no apparent distress, Elderly Head: normocephalic, Atraumatic Eyes: normal inspection, EOMI Neck: supple, Trachea midline Respiratory/Chest: Normal breath sounds, CTA, No accessory muscle use, +Pacer Cardiovascular: S1, S2, + murmur Abdomen/GI:Soft, Non tender, Bowel sounds present Extremities/Musculoskeletal:normal inspection, 1-2 + LE edema Neurologic/Psych:AAOX3, grossly no focal neurological deficits, +Decreased hearing Skin: normal color, warm Results & Data Results & Data Vital Signs (Past 12 Hours) Vital Signs Temp Pulse Resp BP Pulse Ox O2 Del Method O2 Flow Rate 04/19/23 12:49 36.6 C 70 18 117/70 94 15 04/19/23 07:31 36.4 C L 71 18 152/93 H 92 Room Air Laboratory Results Short CBC 04/18/23 04/19/23 Range/Units 15:41 06:51 WBC 6.08 5.61 (4.8-10.8) K/ul Hgb 13.1 L 12.6 L (14.0-18.0) g/dl Hct 40.1 L 38.2 L (42.0-52.0) % Plt Count 132 122 L (130-400) K/uL BMP 04/18/23 04/19/23 15:41 06:51 Sodium 137 139 Potassium 4.3 3.7 Chloride 103 102 Carbon Dioxide 29 31 BUN 20 18 Creatinine 1.06 0.93 Glucose 105 H 84 Calcium 10.1 9.4 Liver Function 04/18/23 04/19/23 Range/Units 15:41 06:51 Total Bilirubin 1.2 H 1.3 H (0.2-1.0) mg/dl AST 23 18 (13-39) U/L ALT 22 19 (7-52) U/L Alkaline Phosphatase 55 45 (34-104) U/L Albumin 4.0 3.6 (3.4-5.0) gm/dl
[2023-04-19] MEDS: Heparin IV Adult Wt-Based Standard *NO* Bolus Protocol IV SCH ×2 (17:37→17:56)
[2023-04-19] MEDS: ATORVASTATIN 40 MG TAB PO SCH (20:36)
[2023-04-19 21:30] LABS: Appearance Urine Cloudy (Clear); Bacteria Urine Automated Negative (Negative); Bilirubin Urine Negative (Negative); Blood Urine 3+ (Negative); Color Urine Orange; Epithelial Cell Urine Auto 0-5 /lpf (0-5); Glucose Urine UA Negative (Negative); Ketones Urine Negative (Negative); Leukocyte Esterase Urine 3+ (Negative); Nitrite Urine Positive (Negative); Protein Urine Negative (Negative); RBC Urine Automated >30 /hpf (0-4); Specific Gravity Urine 1.011 (1.000-1.030); Urobilinogen Urine Positive (Negative); WBC Urine Automated >30 /hpf (0-5); pH Urine 7.5 (4.5-7.5)
--- NOTE | 2023-04-19 23:01 | Communication Note ---
Date of Service: April 19, 2023 Patient noted to have pink-tinged urine as per RN. No pain complaints as per RN. AP Hematuria Ongoing IV anticoagulation for cardiac thrombus Thrombocytopenia Rule out UTI Check UA CBC now Hold heparin for now and restart if H&H stable
[2023-04-19] MEDS: cefTRIAXone SODIUM 2,000 MG in DEXTROSE 5 % MINI-B 50 ML IV SCH (23:55)
[2023-04-20 00:18] LABS: Partial Thromboplastin Time 29.3 Seconds (21.0-31.0)
[2023-04-20 01:22] LABS: Basophils # (auto) 0.03 K/uL (0.00-0.20); Basophils % (auto) 0.4 %; Eosinophils # (auto) 0.15 K/uL (0.00-0.50); Eosinophils % (auto) 2.1 %; Hemoglobin 12.7 g/dl (14.0-18.0); Immature Granulocytes # (auto) 0.03 K/uL (0.01-0.20); Immature Granulocytes % (auto) 0.4 %; Lymphocytes # (auto) 0.91 K/uL (1.20-3.40); Lymphocytes % (auto) 12.6 %; Mean Corpuscular Hemoglobin 30.2 pg (25.0-34.0); Mean Corpuscular Hgb Conc 33.4 g/dL (32.0-36.0); Mean Corpuscular Volume 90.3 fL (80.0-100.0); Mean Platelet Volume 10.7 fL (9.4-12.4); Monocytes # (auto) 0.63 K/uL (0.11-0.59); Monocytes % (auto) 8.7 %; Neutrophils # (auto) 5.47 K/uL (1.40-6.50); Neutrophils % (auto) 75.8 %; Platelet Count 126 K/uL (130-400); RDW Coefficient of Variation 13.3 % (11.5-14.5); RDW Standard Deviation 44.1 fL (36.4-46.3); Red Blood Count 4.21 M/uL (4.70-6.10); White Blood Count 7.22 K/ul (4.8-10.8)
[2023-04-20] MEDS ORDERED: Heparin IV Adult Wt-Based Low-Dose *NO* Bolus Protocol IV STA (01:55)
[2023-04-20] MEDS: HEPARIN SODIUM/DEXTROSE 25,000 UNITS/500 ML BAG IV SCH ×2 (02:22→23:47)
[2023-04-20] MEDS: LEVOTHYROXINE SODIUM 75 MCG TABLET PO SCH (05:50)
[2023-04-20] MEDS: Heparin IV Adult Wt-Based Standard *NO* Bolus Protocol IV SCH (07:44)
[2023-04-20] MEDS: TAMSULOSIN HCL 0.4 MG CAP PO SCH (09:05)
[2023-04-20] MEDS: DORZOLAMIDE/TIMOLOL 22.3/6.8MG/ML 10 ML BTL OPB SCH ×2 (09:05→19:55)
[2023-04-20] MEDS: OXYBUTYNIN CHLORIDE XL 5 MG TABCR PO SCH (09:06)
[2023-04-20] MEDS: carvediloL 25 MG TAB PO SCH ×2 (09:06→19:56)
[2023-04-20] MEDS: lisinopril 10 MG TAB PO SCH (09:06)
[2023-04-20] MEDS: SPIRONOLACTONE 12.5 MG TAB PO SCH (09:06)
[2023-04-20] MEDS: FINASTERIDE 5 MG TAB PO SCH (09:06)
[2023-04-20] MEDS: FUROSEMIDE 40 MG/4 ML VIAL IV SCH (09:07)
[2023-04-20] MEDS: POTASSIUM CHLORIDE CRTAB 20 MEQ TABCR PO SCH (09:11)
[2023-04-20] MEDS: ARTIFICIAL TEARS OP SCH (09:12)
[2023-04-20 09:51] LABS: Hemoglobin 13.5 g/dl (14.0-18.0); Mean Corpuscular Hemoglobin 30.2 pg (25.0-34.0); Mean Corpuscular Hgb Conc 32.9 g/dL (32.0-36.0); Mean Corpuscular Volume 91.7 fL (80.0-100.0); Mean Platelet Volume 10.6 fL (9.4-12.4); Platelet Count 141 K/uL (130-400); RDW Coefficient of Variation 13.3 % (11.5-14.5); RDW Standard Deviation 44.5 fL (36.4-46.3); Red Blood Count 4.47 M/uL (4.70-6.10); White Blood Count 7.14 K/ul (4.8-10.8)
[2023-04-20 10:06] LABS: Partial Thromboplastin Ratio 1.2; Partial Thromboplastin Time 34.6 Seconds (21.0-31.0)
[2023-04-20 10:11] LABS: Calcium 9.5 mg/dl (8.6-10.3); Magnesium 1.8 mg/dl (1.7-2.4); Potassium 3.9 mmol/L (3.5-5.1)
[2023-04-20 10:16] LABS: BUN Creatinine Ratio 22.8 (10-20); Creatinine Clr Calc Pharmacy 62.6 ml/min; Est GFR (African American) 85.8 ml/min
[2023-04-20] MEDS ORDERED: HEPARIN SOD (PORCINE) 1000 UNIT/ML IV ONE (10:19)
[2023-04-20] MEDS: MULTIVITAMIN TAB PO SCH (10:46)
--- NOTE | 2023-04-20 11:21 | Cardiology Progress Note ---
"Date of Service April 20, 2023 Assessment & Plan (1) Acute on chronic HFrEF (heart failure with reduced ejection fraction): (2) Ischemic cardiomyopathy: (3) Non-ST elevation ND (NSTEMI): (4) PAF (paroxysmal atrial fibrillation): Plan Acute on chronic decompensated systolic congestive heart failure, HFrEF Continue IV furosemide 40 mg/day. Plan to change to 40mg of torsemide qday starting tomorrow) Will need oral loop diuretic on discharge (has Torsemide 20 mg/day at home) Continue aldactone Add Jardiance 10mg qday Supplement potassium and magnesium noting asymptomatic NS-VT on telemetry. Await resting echocardiography interpretation Continue GDMT Carvedilol, lisinopril, moderate intensity statin therapy (atorvastatin 40 mg/day), and ASA 81 mg/day. [facility] Consultation, RE: Lisinopril -> Entresto I provided 55 min of care to the patient regarding acute exacerbation of HFrEF. Admission and Anticipated Discharge Date Admission Date: April 18, 2023 Subjective Patient is seen and examined at bedside States feeling better today Less dyspnea today Orthopnea improving Still has mild leg edema Echo showed LV thrombus Denies any chest pain, nausea, vomiting, abdominal pain, dizziness Review of Systems Review of Systems: Complete Review of Systems: Constitutional: No fevers, sweats, or chills. HEENT: Glaucoma. Cataracts status post extraction. No history of amaurosis fugax. Dentures top and bottom. Pulmonary: No history of asthma, emphysema, COPD, sleep apnea, or PE. Cardiac: See above. GI/Abd: No dysphagia. Reflux. No melena or hematochezia. CKD. Hematologic: No coagulation disorder, anemia, or abnormal bleeding. Musculoskeletal: Arthritis. Skin: No rash. Neurologic: No history of CVA. No history of seizure. Male : Prostate cancer. BPH. Endocrine: Denies diabetes. Complete Review of Systems is as stated above, negative, or noncontributory. Physical Exam Physical Exam: General: Hard of hearing. Alert, no distress, comfortable and cooperative. Skin: No rash. Eyes: PER. Conjunctiva pink, sclera clear. HENT: Normocephalic. Atraumatic. Neck: Bilateral carotid bruits. + JVD. +HJR. Chest: Left subclavian pacemaker/defibrillator Heart: Irregular at 74 bpm. Soft apical systolic murmur. PMI is displaced laterally. Lungs: Diminished at the bases. Right basilar rales. No wheeze. Abdomen: +BS. Soft. Nontender. No masses. No organomegaly. Extremities: 1-2+ edema. No clubbing. No cyanosis. Pulses: radial=2/4, posterior tibial=1/4. Limited neurological examination: No focal deficit. Results & Data Vital Signs (Past 12 Hours) Vital Signs Temp Pulse Pulse Resp BP Pulse Ox O2 Del Method 04/20/23 07:53 36.5 C 69 16 147/91 H 96 Room Air 04/20/23 03:15 36.8 C 68 16 145/79 H 92 Room Air 04/20/23 00:16 74 Laboratory Results Na | 135 | L | 136-145 mmol/L | K | 3.9 | | 3.5-5.1 mmol/L | Cl | 100 | | 98-107 mmol/L | CO2 | 30 | | 21-32 mmol/L | Gap | 5 | | 3-11 | BUN | 21 | | 6-23 mg/dl | Creat | 0.92 | | 0.6-1.4 mg/dl | Creat Calc PHA | 62.6 | | ml/min | | Est. Creatinine Clearance (Mod Cockcroft-Gault) for pharmacy | dosing purposes. EGFR AA | 85.8 | | ml/min | | Units: ml/min per 1.73 meters squared | | The estimated GFR (CKD-EPI equation) has not been validated | for inpatient settings and may not be an accurate reflection | of renal function in critically ill patients or those with | rapidly changing renal function (e.g. JOSE G). EGFR PAL | 74.0 | | ml/min | | Units: ml/min per 1.73 meters squared | | The estimated GFR (CKD-EPI equation) has not been validated | for inpatient settings and may not be an accurate reflection | of renal function in critically ill patients or those with | rapidly changing renal function (e.g. JOSE G). BUN Creat Ratio | 22.8 | H | 10-20 | Glu | 122 | H | 70-99(Fasting) mg/dl | Ca | 9.5 | | 8.6-10.3 mg/dl | MG | 1.8 | | 1.7-2.4 mg/dl |"
[2023-04-20] MEDS: EMPAGLIFLOZIN 10 MG TAB PO SCH (15:06)
--- OUTSIDE RECORDS SUMMARY | 2023-04-20 15:53 | External Medical Summary | Summary of Care ---
Author Name Unknown Organization [facility] Address [address] [place] [address] Phone [phone] Care Team Providers Care Wash House Worker Name Role Phone Zac Harrison MD Primary Care Provider [phone] Reason for Visit * Reason Onset Date Comments Appointment 01/30/2023 Encounter Details Date Type Department Care Team Description 01/30/2023 Telephone Cardiology, [facility] [address] [place] [address] [facility] [address] [place] [address] Appointment Allergies No known active allergiesdocumented as of this encounter (statuses as of 03/11/2023) Medications Medication Sig Dispensed Refills Start Date End Date Status RESTASIS 0.05 % OP EMUL one drop each eye twice a day 0 0 4 Active Multiple Vitamins-Minerals (MULTIVITAMIN ADULT) TABS Take 1 Tab by mouth daily. 0 Active Dorzolamide HCl-Timolol Mal 22.3-6.8 MG/ML Ophthalmic Solution (Cosopt Ocumeter Plus) instill ONE DROP into BOTH eyes TWICE DAILY 0 1 Active Naproxen Sodium 220 MG Oral Tablet Take 1 Tablet by mouth once. Once daily with meals 0 Active HYDROcodone-Acetamin ophen 5-325 MG Oral Tablet Take by mouth 1 Tablet every 6 hours as needed for Pain, Mild. 20 Tablet 0 2 Active Tamsulosin HCl 0.4 MG Oral Capsule (Flomax)Indications: BPH without urinary obstruction TAKE ONE CAPSULE BY MOUTH EVERY MORNING 90 Capsule 1 3 Active Finasteride 5 MG Oral Tablet (Proscar)Indications :BPH with obstruction/lower urinary tract symptoms One daily 90 Tablet 1 3 Active Atorvastatin Calcium 40 MG Oral Tablet (Lipitor)Indications :Dyslipidemia, goal LDL below 100,Atherosclerosis of [place] coronary artery of [place] heart without angina pectoris Take 1 Tablet by mouth at bedtime. 90 Tablet 1 3 Active Levothyroxine Sodium 75 MCG Oral Tablet (Levoxyl)Indications :Acquired hypothyroidism (at least 30 min prior to breakfast or other meds) 90 Tablet 1 3 Active Lisinopril 30 MG Oral TabletIndications:Hy pertensive heart disease with chronic systolic congestive heart failure (HCC),Primary hypertension,Atheros clerosis of [place] coronary artery of [place] heart without angina pectoris Take 1 Tablet by mouth in the morning. 90 Tablet 1 3 Active Oxybutynin Chloride ER 5 MG Oral Tablet Extended Release 24 Hour (Ditropan XL)Indications:BPH with obstruction/lower urinary tract symptoms Take 1 Tablet by mouth in the morning. 90 Tablet 1 3 Active Aspirin Low Dose 81 MG Oral Tablet Delayed Release (aspirin enteric coated)Indications:C oronary atherosclerosis of [place] coronary artery TAKE ONE TABLET BY MOUTH EVERY DAY 100 Tablet 3 3 Active Carvedilol 25 MG Oral Tablet (Coreg)Indications:A therosclerosis of [place] coronary artery of [place] heart with angina pectoris (HCC),Essential hypertension with goal blood pressure less than 140/90 Take by mouth 1 Tablet in the morning AND 1 Tablet before bedtime. With food.. 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[facility], L hand near thumb), Keratoacanthoma (L dorsum hand), squamous cell carcinoma (L forearm), basal cell carcinoma with squamous differentiation (L [facility]), bowenoid AK (L [facility]) Dermatophytosis of nail 06/28/2016 Ischemic cardiomyopathy 01/10/2016 Atherosclerosis of [place] co ronary artery of [place] heart without angina pectoris 12/20/2015 Biventricular automatic implantable card ioverter defibrillator in situ 06/20/2015 Chronic systolic CHF (congestive heart f ailure), NYHA class 2 06/20/2015 Prostate cancer 07/29/2014 BPH with obstruction/lower urinary tract symptoms 09/07/2010 Dyslipidemia, goal LDL below 100 011 Acquired hypothyroidism 12/02/2008 Overview: TSH 4.47 ADVANCE DIRECTIVE INFORMATION 05/29/2005 Overview: No, Advance Directive brochure given to patient at prior appointment. History of acute anterolateral wall HI 0 12/16/1995 Primary hypertension documented as of this encounter (statuses as of 03/11/2023) Resolved Problems Problem Noted Date Resolved Date Closed fracture of right ankle with routine heal ing 06/16/2020 10/12/2020 Overview: Acute lateral malleolar fracture. Presumed acute medial malleolar tip osseous avulsion injury. Benign neoplasm of colon 01/30/2007 018 Overview: 7 mm polyp distal ascending colon, 11 mm polyp proximal sigmoid Chronic renal insufficiency 11/25/2003 0707/2008 Overview: GFR 37.5 CORONARY ATHEROSCLER. OF [place] CORONARY VESSEL 11/23/2003 03/01/2017 Other forms of retinal detachment(361.89) 200301/28/2014 PRIM OPEN ANGLE GLAUCOMA 022 Overview: More specified on PL Acute HI, anterior wall 07/02/20 09 Inflamed seborrheic keratosis Herpes zoster 01/28/2014 Kidney disease, chronic, stage III (GFR 30-59 ml /min) 12/06/2008 Kidney disease, chronic, stage II (GFR 60-89 ml/ min) 06/13/2010 Hyperlipidemia with target LDL less than 100 12/13/2014 Overview: ICD-10 update of inactive term Subdural hematoma 03/22/2016 Malignant hypertension with systolic CHF, NYHA c lass 2 07/02/2017 History of acute anterior wall HI 11/10/2018 documented as of this encounter (statuses as of 03/11/2023) Immunizations Name Administration Dates Next Due COVID-19 mRNA, LNP-s, No Pre serve, 2-Dose Series (Moderna) 04/04/2021,09/16/2020,08/19/2020 Pneumococcal Conjugate Vacc, 13 Valent (Prevnar) 08/27/2014 SEASONAL INFLUENZA, PF, 6 M & Above, IM , (FLULAVAL or FLUZONE) 05/12/2018,03/01/2017 Season Influenza, Quad, PF, Adjuvanted, 65+ Yrs, IM (FLUAD) 03/23/2020 Seasonal Influenza, Quadriva lent Hd (Fluzone Hd) 03/02/2022,04/17/2021 Seasonal Influenza, Quadriva lent, No Preserve, IM 03/22/2016,03/03/2015 Seasonal Influenza, Split, I IV3, With Preserve, Inj 02/23/2014,02/16/2013,02/21/2012,2010,02/21/2010,03/29/2009,03/16/2008,1 ,04/04/2006 Seasonal Influenza, Trivalen t, Adjuvanted, 65+ yrs 04/02/2019 TD - Tetanus/Diptheria (ADULT) 05/29/2007 TDAP (age 10 and older)(Boostrix) 01/08/2013 Varicella Zoster Vaccine (Adult) 01/26/2013 Zoster Vaccine Recombinant (Shingrix) 07/14/2019 ,05/12/2019 documented as of this encounter Social History Tobacco Use Types Packs/Day Years Used Date Smoking Tobacco: Never Smokeless Tobacco: Former Snuff Comments:Quit 30 years ago. Alcohol Use Standard Drinks/Week Comments Yes 0 (1 standard drink = 0.6 oz pur e alcohol) 5-8 beers/year. Food Insecurity Answer Date Recorded Within the past 12 months, y ou worried that your food would run out before you got money to buy more. Never true 01/16/2023 Within the past 12 months, t he food you bought just didn't last and you didn't have money to get more. Never true 01/16/2023 Sex Assigned at Date Recorded Male 12/23/2020 2:20 PM E DT Job Start Date Occupation Industry Not on file Not on file Not on file documented as of this encounter Miscellaneous Notes * Telephone Encounter - ANTONINA Chatman - 02/05/2023 1:20 PM EDT Scheduled. * Telephone Encounter - ANTONINA Sánchez - 01/31/2023 9:29 AM EDT returning call regarding rescheduling pace maker appointment. Pt is agreeable to traveling to [facility]. Please advise pt with an appointment. Thank you. * Telephone Encounter - Elzia Veliz RN - 01/30/2023 2:37 PM EDT Called, left message for patient to return call. Need to reschedule device clinic appointment from yesterday 01/29/23. Will need to be rescheduled for [facility] for an upcoming Saturday with a rep available. Upon return call, please inquire if patient agreeable to travel to [facility] for device clinic appointment and will assist in arranging. documented in this encounter Plan of Treatment Upcoming Encounters Date Type Specialty Care Team Description 04/18/2023 Office Visit Family Medicine Zac Harrison MD [address] [place] [address] [place] [address] 06/11/2023 Office Visit Cardiology Sesar Vargas PA-C [address] [place] [address] 06/26/2023 Office Visit Dermatology Carolynn Dumont PA-C [address] [place] [address] [place] [address] 08/27/2023 Cardiac Studies Cardiology [facility] [address] [place] [address] 01/21/2024 Nurse Only Ancillary Hubert, Nurse Annual Wellness [address] [place] [address] [place] [address] Health Maintenance Due Date Last Done Comments COVID-19 Vaccine (4 - Moderna series) 05/30/2021 04/04/2021, 09/16/2020, 08/19/2020 DTaP,Tdap,and Td Vaccines (2 - Td or Tdap) 01/08/2023 01/08/2013, 05/29/2007 TSH 10/17/2023 10/16/2022, 11/01, 10/12/2020, Additional history exists Depression Screening 01/17/2024 01/16/2023 Albumin/Creatinine Ratio 10/16/2025 023, 11/13/2021, 10/12/2020, Additional history exists Pneumococcal Vaccine: 65+ Years Completed 08/27/2014, 05/29/2005, 03/16/1997 Influenza Vaccine (FLU shot) Completed , 03/02/2022, 04/17/2021, Additional history exists GARDASIL-HPV IMMUNIZATION SERIES Aged Out No longer eligible based on patient's age to complete this topic Hepatitis B Aged Out No longer eligi ble based on patient's age to complete this topic MENINGOCOCCAL (MENACTRA/MENVEO) Aged Out No longer eligible based on patient's age to complete this topic documented as of this encounter Medical Devices Not on filedocumented as of this encounter Care Teams Wash House Worker Relationship Specialty Start Date End Date Zac Harrison MD [address] [place] [address] [place] [address] PCP - General Family Medicine 01/28/14 documented as of this encounter
--- OUTSIDE RECORDS SUMMARY | 2023-04-20 15:53 | External Medical Summary ---
Author Name Unknown Address Unknown Organization [id number]:LABORATORY [facility] [place] - [address] [place] [address] Laboratory Report Ordering Provider Test Date Status MARIANNA HERNÁNDEZCATHRYN 04/18/2023 08:59:23 Final Exclude Heart Failure: <300 pg/mL
Diagnose Heart Failure:
Age <50 yr: >450 pg/mL
50-75 yr: >900 pg/mL
>75 yr: >1800 pg/mL
GFR is 30-59 mL/min: >1200 pg/mL or Age- adjusted values
GFR <30 mL/min: do not use, not reliable

Prognostic threshold: 1000 pg/mL Observation Date Value Abnormality Reference (Units ) Status BNP, Pro-hormone 04/18/2023 08:59:23 6798 Above high no rmal <300 (pg/mL) Final Performing Location [facility] [place] - [address] [place] [address]
--- OUTSIDE RECORDS SUMMARY | 2023-04-20 15:53 | External Medical Summary ---
Author Name Unknown Address Unknown Organization [id number][place] [place] [address] [place] [address] Laboratory Report Ordering Provider Test Date Status BENJAMIN HERNÁNDEZ 04/18/2023 08:59:23 Final Observation Date Value Abnormality Reference (Units ) Status TSH 04/18/2023 08:59:23 3.88 0.27-4.20 (uIU/mL) Final Performing Location LABORATORY [facility] - [address] [place] [address]
--- OUTSIDE RECORDS SUMMARY | 2023-04-20 15:53 | External Medical Summary | Summary of Care ---
Author Name Unknown Organization [facility] Address [address] [place] [address] Phone [phone] Care Team Providers Care Application Penetration Tester Name Role Phone Zac Harrison MD Primary Care Provider [phone] Encounter Details Date Type Department Care Team Description 03/20/2023 Result Scan Unspecified Department Juan Daniel Ashley, DO [address] [place], [place] [id number] <No scans attached> Allergies No known active allergiesdocumented as of this encounter (statuses as of 03/20/2023) Medications Medication Sig Dispensed Refills Start Date End Date Status RESTASIS 0.05 % OP EMUL one drop each eye twice a day 0 0 11/23/2003 Active Multiple Vitamins-Minerals (MULTIVITAMIN ADULT) TABS Take 1 Tab by mouth daily. 0 Active Dorzolamide HCl-Timolol Mal 22.3-6.8 MG/ML Ophthalmic Solution (Cosopt Ocumeter Plus) instill ONE DROP into BOTH eyes TWICE DAILY 0 07/06/2020 Active Naproxen Sodium 220 MG Oral Tablet Take 1 Tablet by mouth once. Once daily with meals 0 Active HYDROcodone-Acetaminop hen 5-325 MG Oral Tablet Take by mouth 1 Tablet every 6 hours as needed for Pain, Mild. 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 90 Tablet 1 10/16/2022 Active Levothyroxine Sodium 75 MCG Oral Tablet (Levoxyl)Indications:A cquired hypothyroidism (at least 30 min prior to breakfast or other meds) 90 Tablet 1 10/16/2022 Active Lisinopril 30 MG Oral TabletIndications:Hype rtensive heart disease with chronic systolic congestive heart failure (HCC),Primary hypertension,Atheroscl erosis of [place] coronary artery of [place] heart without angina pectoris Take 1 Tablet by mouth in the morning. 90 Tablet 1 10/16/2022 Active Oxybutynin Chloride ER 5 MG Oral Tablet Extended Release 24 Hour (Ditropan XL)Indications:BPH with obstruction/lower urinary tract symptoms Take 1 Tablet by mouth in the morning. 90 Tablet 1 10/16/2022 Active Aspirin Low Dose 81 MG Oral Tablet Delayed Release (aspirin enteric coated)Indications:Cor onary atherosclerosis of [place] coronary artery TAKE ONE TABLET BY MOUTH EVERY DAY 100 Tablet 3 12/17/2022 Active Carvedilol 25 MG Oral Tablet (Coreg)Indications:Ath erosclerosis of [place] coronary artery of [place] heart with angina pectoris (HCC),Essential hypertension with goal blood pressure less than 140/90 TAKE ONE TABLET BY MOUTH TWICE DAILY TAKE WITH FOOD 180 Tablet 2 02/16/2023 Active documented as of this encounter (statuses as of 03/20/2023) Active Problems Problem Noted Date Primary open-angle glaucoma, right eye, mild stage 12/12/2021 Primary open-angle glaucoma, left eye, s evere stage 04/14/2020 Hypertensive heart disease with chronic systolic congestive heart failure 10/30/2018 Actinic keratoses 06/18/2018 Overview: Efudex (06/2018 to hands/arms, face/scalp/ears/neck 03/2019, forearms/dorsal hands 08/2020) Hx of nonmelanoma skin cancer 07/09/2017 Overview: 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 History of acute anterolateral wall WA 0 12/16/1995 Primary hypertension documented as of this encounter (statuses as of 03/20/2023) Resolved Problems Problem Noted Date Resolved Date Closed fracture of right ankle with routine heal ing 06/16/2020 10/12/2020 Overview: Acute lateral malleolar fracture. Presumed acute medial malleolar tip osseous avulsion injury. Benign neoplasm of colon 01/30/2007 018 Overview: 7 mm polyp distal ascending colon, 11 mm polyp proximal sigmoid Chronic renal insufficiency 11/25/200307/2008 Overview: GFR 37.5 CORONARY ATHEROSCLER. OF [place] CORONARY VESSEL 11/23/2003 03/01/2017 Other forms of retinal detachment(361.89) 200301/28/2014 PRIM OPEN ANGLE GLAUCOMA 022 Overview: More specified on PL Acute WA, anterior wall 12/03/19 09 Inflamed seborrheic keratosis Herpes zoster 01/28/2014 Kidney disease, chronic, stage III (GFR 30-59 ml /min) 12/06/2008 Kidney disease, chronic, stage II (GFR 60-89 ml/ min) 06/13/2010 Hyperlipidemia with target LDL less than 100 12/13/2014 Overview: ICD-10 update of inactive term Subdural hematoma 03/22/2016 Malignant hypertension with systolic CHF, NYHA c lass 2 07/02/2017 History of acute anterior wall [place] 11/10/2018 documented as of this encounter (statuses as of 03/20/2023) Immunizations Name Administration Dates Next Due COVID-19 mRNA, LNP-s, No Pre serve, 2-Dose Series (Moderna) 04/04/2021,09/16/2020,08/19/2020 Pneumococcal Conjugate Vacc, 13 Valent (Prevnar) 08/27/2014 SEASONAL INFLUENZA, PF, 6 M & Above, IM , (FLULAVAL or FLUZONE) 05/12/2018,03/01/2017 Season Influenza, Quad, PF, Adjuvanted, 65+ Yrs, IM (FLUAD) 03/23/2020 Seasonal Influenza, Quadriva lent Hd (Fluzone Hd) 02/19/2023,03/02/2022,04/17/2021 Seasonal Influenza, Quadriva lent, No Preserve, IM [...] on file documented as of this encounter Plan of Treatment Upcoming Encounters Date Type Specialty Care Team Description 04/18/2023 Office Visit Family Medicine Zac Harrison MD [address] [place] [address] [place] [id number] 06/11/2023 Office Visit Cardiology Sesar Vargas PA-C [address] [place] [address] 06/26/2023 Office Visit Dermatology Carolynn Dumont PA-C [address] [place] [address] [place] [id number] 08/27/2023 Cardiac Studies [facility] [place] [phone] 01/21/2024 Nurse Only Ancillary Hubert Nurse Annual Wellness [address] [place] [address] [place] [address] Health Maintenance Due Date Last Done Comments DTaP,Tdap,and Td Vaccines (2 - Td or Tdap) 01/08/2023 01/08/2013, 05/29/2007 COVID-19 Vaccine ( - 2022- season) 2023 04/04/2021, 09/16/2020, 08/19/2020 TSH 10/17/2023 10/16/2022, 11/01, 10/12/2020, Additional history [...] Not on filedocumented as of this encounter Procedures Procedure Name Priority Date/Time Associated Diagnosis Comments CARDIOLOGY SCANNED RESULT 03/20/2023 documented in this encounter Results * CARDIOLOGY SCANNED RESULT (03/20/2023) 03/20/2023 Juan Daniel Ashley DO OTHER documented in this encounter Care Teams Application Penetration Tester Relationship Specialty Start Date End Date Zac Harrison MD [address] [place] [address] [place] [id number] PCP - General Family Medicine 01/28/14 documented as of this encounter
--- OUTSIDE RECORDS SUMMARY | 2023-04-20 15:53 | External Medical Summary ---
Author Name Unknown Address Unknown Organization [id number]:[facility] [place] [address] [place] [address] Laboratory Report Ordering Provider Test Date Status BENJAMIN HERNÁNDEZ 04/18/2023 08:59:23 Final Observation Date Value Abnormality Reference (Units ) Status WBC, Total 04/18/2023 08:59:23 5.53 4.00-10.80 (K/uL) Final RBC 04/18/2023 08:59:23 4.26 4.50-5.25 (M/uL) Final Hemoglobin 04/18/2023 08:59:23 12.8 Below low normal 14.0-16.8 (g/dL) Final HCT 04/18/2023 08:59:23 41.4 40.0-48.4 (%) Final MCV 04/18/2023 08:59:23 97.2 82.0-99.5 (fL) Final MCH 04/18/2023 08:59:23 30.0 27.0-34.0 (pg) Final MCHC 04/18/2023 08:59:23 30.9 32.0-36.0 (g/dL) Final RDW 04/18/2023 08:59:23 13.2 11.5-15.5 (%) Final Platelets 04/18/2023 08:59:23 143 140-400 (K/uL) Final MPV 04/18/2023 08:59:23 11.1 6.6-11.1 (fL) Final Nucleated erythrocytes/100 leukocytes [Ratio] in Blood by Automated count 04/18/2023 08:59:23 0 <=0 (/100 WBCs) Final Performing Location [facility] [place] [address] [place] [id number]
--- OUTSIDE RECORDS SUMMARY | 2023-04-20 15:53 | External Medical Summary | Summary of Care ---
Author Name Unknown Organization [facility] Address [address] [place] [address] Phone [phone] Care Team Providers Care Tobacco Dipper Name Role Phone Zac Harrison MD Primary Care Provider + [phone] Reason for Visit * Reason Comments Re-Check Encounter Details Date Type Department Care Team (Latest Contact Info) Description 04/18/2023 8:40 AM EST Office Visit Family Medicine [address] [phone] Zac Harrison MD [address] [place] [address] [place] [address] Atherosclerosis of [place] coronary artery of [place] heart without angina pectoris*; Dyslipidemia, goal LDL below 100; BPH with obstruction/lower urinary tract symptoms; Acquired hypothyroidism; Hypertensive heart disease with chronic systolic congestive heart failure (HCC); Primary hypertension; BPH without urinary obstruction; Heart failure, diastolic, due to HTN (HCC) Allergies No known active allergiesdocumented as of this encounter (statuses as of 04/18/2023) Medications Medication Sig Dispensed Refills Start Date [...] Pain, Mild. 20 Tablet 0 02/09/2022 Active Aspirin Low Dose 81 MG Oral Tablet Delayed Release (aspirin enteric coated)Indications:C oronary atherosclerosis of [place] coronary artery TAKE ONE TABLET BY MOUTH EVERY DAY 100 Tablet 3 12/17/2022 Active Carvedilol 25 MG Oral Tablet (Coreg)Indications:A therosclerosis of [place] coronary artery of [place] heart with angina pectoris (HCC),Essential hypertension with goal blood pressure less than 140/90 TAKE ONE TABLET BY MOUTH TWICE DAILY TAKE WITH FOOD 180 Tablet 2 02/16/2023 Active Atorvastatin Calcium 40 MG Oral Tablet (Lipitor)Indications :Dyslipidemia, goal LDL below 100,Atherosclerosis of [place] coronary artery of [place] heart without angina pectoris Take 1 Tablet by mouth at bedtime. 90 Tablet 1 04/18/2023 Active Finasteride 5 MG Oral Tablet (Proscar)Indications :BPH with obstruction/lower urinary tract symptoms One daily 90 Tablet 1 04/18/2023 Active Levothyroxine Sodium 75 MCG Oral Tablet (Levoxyl)Indications :Acquired hypothyroidism (at least 30 min prior to breakfast or other meds) 90 Tablet 1 04/18/2023 Active Lisinopril 30 MG Oral TabletIndications:At herosclerosis of [place] coronary artery of [place] heart without angina pectoris,Hypertensiv e heart disease with chronic systolic congestive heart failure (HCC),Primary hypertension Take 1 Tablet by mouth in the morning. 90 Tablet 1 04/18/2023 Active oxyBUTYnin Chloride ER 5 MG Oral Tablet Extended Release 24 Hour (Ditropan XL)Indications:BPH with obstruction/lower urinary tract symptoms Take 1 Tablet by mouth in the morning. 90 Tablet 1 04/18/2023 Active Tamsulosin HCl 0.4 MG Oral Capsule (Flomax)Indications: BPH without urinary obstruction Take 1 Capsule by mouth in the morning. 90 Capsule 1 04/18/2023 Active Torsemide 20 MG Oral Tablet (Demadex)Indications :Heart failure, diastolic, due to HTN (HCC) Take 1 Tablet by mouth in the morning. 30 Tablet 0 04/18/2023 Active Tamsulosin HCl 0.4 MG Oral Capsule (Flomax)Indications: BPH without urinary obstruction TAKE ONE CAPSULE BY MOUTH EVERY MORNING 90 Capsule 1 08/13/2022 3 Discontinue d(Refill) Finasteride 5 MG Oral Tablet (Proscar)Indications :BPH with obstruction/lower urinary tract symptoms One daily 90 Tablet 1 10/16/2022 3 Discontinue d(Refill) Atorvastatin Calcium 40 MG Oral Tablet (Lipitor)Indications :Dyslipidemia, goal LDL below 100,Atherosclerosis of [place] coronary artery of [place] heart without angina pectoris Take 1 Tablet by mouth at bedtime. 90 Tablet 1 10/16/2022 3 Discontinue d(Refill) Levothyroxine Sodium 75 MCG Oral Tablet (Levoxyl)Indications :Acquired hypothyroidism (at least 30 min prior to breakfast or other meds) 90 Tablet 1 10/16/2022 3 Discontinue d(Refill) Lisinopril 30 MG Oral TabletIndications:Hy pertensive heart disease with chronic systolic congestive heart failure (HCC),Primary hypertension,Atheros clerosis of [place] coronary artery of [place] heart without angina pectoris Take 1 Tablet by mouth in the morning. 90 Tablet 1 10/16/2022 3 Discontinue d(Refill) Oxybutynin Chloride ER 5 MG Oral Tablet Extended Release 24 Hour (Ditropan XL)Indications:BPH with obstruction/lower urinary tract symptoms Take 1 Tablet by mouth in the morning. 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), Keratoacanthoma (L dorsum hand), squamous cell carcinoma (L forearm), basal cell carcinoma with squamous differentiation (L yarsani), bowenoid AK (L yarsani) Dermatophytosis of nail 06/28/2016 Ischemic cardiomyopathy 01/10/2016 Atherosclerosis of [place] co ronary artery of [place] heart without angina pectoris 12/20/2015 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 History of acute anterolateral wall OK 6 Primary hypertension documented as of this encounter (statuses as of 04/18/2023) Resolved Problems Problem Noted Date Diagnosed Date Resolved Date Closed fracture of right ank le with routine healing 06/16/2020 10/12/2020 Overview: Acute lateral malleolar fracture. Presumed acute medial malleolar tip osseous avulsion injury. Benign neoplasm of colon 01/30/2007 Overview: 7 mm polyp distal ascending colon, 11 mm polyp proximal sigmoid Chronic renal insufficiency 11/25/2003 12/02/2008 Overview: GFR 37.5 CORONARY ATHEROSCLER. OF GAGE SHRUTHI CORONARY VESSEL 11/23/2003 03/01/2017 Other forms of retinal detachment(361.89) 10/04/2003 01/28/2014 PRIM OPEN ANGLE GLAUCOMA Overview: More specified on PL Acute OK, anterior wall 07/2008 Inflamed seborrheic keratosis 03/01/2017 Herpes zoster 01/28/2014 Kidney disease, chronic, sta ge III (GFR 30-59 ml/min) 12/06/2008 Kidney disease, chronic, sta ge II (GFR 60-89 ml/min) 06/13/2010 Hyperlipidemia with target LDL less than 100 12/13/2014 Overview: ICD-10 update of inactive term Subdural hematoma 03/22/2016 Malignant hypertension with systolic CHF, NYHA class 2 07/02/2017 History of acute anterior wall OK 11/10/2018 documented as of this encounter (statuses as of 04/18/2023) Immunizations Name Administration Dates Next Due COVID-19 [...] 0.6 oz pur e alcohol) 5-8 beers/year. PHQ-2 Answer Date Recorded PHQ Adult Total Score 0 01/16/2023 Hunger Vital Sign Answer Date Recorded Within the past 12 months, y ou worried that your food would run out before you got the money to buy more. Never true 01/17/20 23 Within the past 12 months, t he food you bought just didn't last and you didn't have money to get more. Never true 01/16/2023 Sex and Gender Information Value Date Recorded Sex Assigned at Male 12/23/2020 2:20 PM EDT Gender Identity Male 12/23/2020 2:20 PM EDT Sexual Orientation Straight 12/23/2020 2: 20 PM EDT Job Start Date Occupation Industry Not on file Not on file Not on file documented as of this encounter Last Filed Vital Signs Vital Sign Reading Time Taken Comments Blood Pressure 122/68 04/18/2023 8:36 AM EST Pulse 80 04/18/2023 8:36 AM EST Temperature 36.1 C (97 F) 04/18/2023 8:36 AM EST Respiratory Rate - - Oxygen Saturation 97% 04/18/2023 8:36 AM EST Inhaled Oxygen Concentration - - Weight 88.9 kg (196 lb) 04/18/2023 8:36 AM EST Height - - Body Mass Index 27.34 01/16/2023 2:07 PM EDT documented in this encounter Progress Notes * Zac Harrsion MD - 04/18/2023 8:32 AM EST Horace has been having an increased cough even though he does not feel sick, no fever or mucus, notsleeping because he coughs more lying down, feet are swelling, he is tired and more unsteady on hisfeet. He has been trying to eat more. No chest pain. Health Maintenance addressed. Had the Coronovirus vaccine, 3 doses, got flu shot Past Medical History: Diagnosis Date Acute OK, anterior wall (HCC) 12/16/1995 Anterolateral OK at [facility]. Recieved TPA and did well. Adenomatous polyp of transverse colon 01/01/2018 2 mm Benign neoplasm of colon 01/31/2010 [address] shows adenomatous tissue, repeat in 3 yea Benign neoplasm of colon 01/22/2013 polyp--no evidence of adenomatous tissue--repeat in 5 yrs Closed fracture of right ankle with routine healing 06/16/2020 Acute lateral malleolar fracture. Presumed acute medial malleolar tip osseous avulsion injury. Coronary atherosclerosis of [place] coronary artery Diverticulosis of colon 01/30/2007 severe extensive diverticulosis for sigmoid to cecum Herpes zoster HTN, goal below 140/90 Hyperlipidemia LDL goal < 100 Hypertrophy of prostate with urinary obstruction and other lower urinary tract symptoms (LUTS) Inflamed seborrheic keratosis Other forms of retinal detachment(361.89) Other specified acquired hypothyroidism 12/02/2008 TSH 4.47 Primary open angle glaucoma Prostate cancer (HCC) 07/29/2014 Carter 3 with a few 4s on biopsy, treatment not recommended until PSA 20 Subdural hematoma (HCC) 07/31/2014 Jonathon Past Surgical History: Procedure Laterality Date BIMALLEOLAR ANKLE FX W/ FIXATION Right 07/01/2020 OPEN TREATMENT BIMALLEOLAR ANKLE FRACTURE performed by Radha Hardin DPM at [facility] COLONOSCOPY W/ LESION REMOVAL, SNARE 01/30/2007 polyps removed distal ascending and prox sigmoid COLONOSCOPY W/ LESION REMOVAL, SNARE 01/30/2010 polyps path shows adenomatous tissue, repeat in 3 years COLONOSCOPY W/ LESION REMOVAL, SNARE 01/01/2018 2 mm adenomatous polyp transverse colon COLONOSCOPY, DIAGNOSTIC (RECTUM) 01/22/2013 polyp--no evidence of adenomatous tissue--repeat in 5 yrs COLONOSCOPY, DIAGNOSTIC (RECTUM) 01/01/2018 adenomatous polyp, diverticulosis / [facility] ECHO, COMPLETE (2D), TRANS-THORACIC 09/18/2014 severely dilated LV, EF 15-20% ECHO, COMPLETE (2D), TRANS-THORACIC N/A 04/14/2020 LV mildly dilated, large areas of hypokinesis, apex akinetic, EF 25-29%, grade I diastlic dysfunction ECHO, STRESS (EXERCISE) W/ PHYSICIAN 07/06/2008 Q waves in nicole at rest, resting LV akinesis mid/apical septum and ant LV wall, ficed with stress, no ischemic changes, nl LV thickness, EF 40-45%, LAE 4.6 cm INSERT/REPLACE ICD, SINGLE OR DUAL CHAMBER 11/16/2014 Jonathon NEEDLE/PUNCH BIOPSY OF PROSTATE 07/19/2014 REMOVAL OF DEEP SUPPORT IMPLANT Right 02/09/2022 REMOVAL OF IMPLANT DEEP performed by Tisha Dykes DPM at OR [facility] REMOVE CATARACT, INSERT LENS PROSTH 04/26/1999 right REMOVE CATARACT, INSERT LENS PROSTH 11/11/2000 left REPAIR DETACHED RETINA, VITRECTOMY REPAIR INITIAL INGUINAL HERNIA REDUCIBLE AGE 4 OR MORE Inguinal Hernia Repair,5+Y/O,Reducibl Review of patient's allergies indicates: No Known Allergies Social History Socioeconomic History Marital status: Spouse name: Not on file Number of children: Not on file Years of education: Not on file Highest education level: Not on file Occupational History Not on file Tobacco Use Smoking status: Never Smokeless tobacco: Former Types: Snuff Tobacco comments: Quit 30 years ago. Vaping Use Vaping Use: Never used Substance and Sexual Activity Alcohol use: Yes Comment: 5-8 beers/year. Drug use: No Sexual activity: Not Currently Other Topics Concern Not on file Social History Narrative for 29yrs as of 01/16/2023 Social Determinants of Health Financial Resource Strain: Not on file Food Insecurity: No Food Insecurity (01/16/2023) Hunger Vital Sign Worried About Running Out of Food in the Last Year: Never true Ran Out of Food in the Last Year: Never true Transportation Needs: Not on file Physical Activity: Not on file Stress: Not on file Social Connections: Not on file Intimate Partner Violence: Not on file Housing Stability: Not on file Current Outpatient Medications Medication Sig Dispense Refill RESTASIS 0.05 % OP EMUL one drop each eye twice a day 0 0 Multiple Vitamins-Minerals (MULTIVITAMIN ADULT) TABS Take 1 Tab by mouth daily. Dorzolamide HCl-Timolol Mal 22.3-6.8 MG/ML Ophthalmic Solution (Cosopt Ocumeter Plus) instill ONE DROP into BOTH eyes TWICE DAILY Naproxen Sodium 220 MG Oral Tablet Take 1 Tablet by mouth once. Once daily with meals HYDROcodone-Acetaminophen 5-325 MG Oral Tablet Take by mouth 1 Tablet every 6 hours as needed for Pain, Mild. 20 Tablet 0 Tamsulosin HCl 0.4 MG Oral Capsule (Flomax) TAKE ONE CAPSULE BY MOUTH EVERY MORNING 90 Capsule 1 Finasteride 5 MG Oral Tablet (Proscar) One daily 90 Tablet 1 Atorvastatin Calcium 40 MG Oral Tablet (Lipitor) Take 1 Tablet by mouth at bedtime. 90 Tablet 1 Levothyroxine Sodium 75 MCG Oral Tablet (Levoxyl) (at least 30 min prior to breakfast or other meds) 90 Tablet 1 Lisinopril 30 MG Oral Tablet Take 1 Tablet by mouth in the morning. 90 Tablet 1 Oxybutynin Chloride ER 5 MG Oral Tablet Extended Release 24 Hour (Ditropan XL) Take 1 Tablet by mouth in the morning. 90 Tablet 1 Aspirin Low Dose 81 MG Oral Tablet Delayed Release (aspirin enteric coated) TAKE ONE TABLET BY MOUTH EVERY DAY 100 Tablet 3 Carvedilol 25 MG Oral Tablet (Coreg) TAKE ONE TABLET BY MOUTH TWICE DAILY TAKE WITH FOOD 180 Tablet2 No current facility-administered medications for this visit. Results for orders placed or performed in visit on 07/31/22 BASIC METABOLIC PANEL Result Value Ref Range BUN 16 6 - 20 mg/dL Creatinine 0.9 0.6 - 1.2 mg/dL Estimated Glomerular Filtration Rate 83 >=60 mL/min Sodium 136 135 - 146 mmol/L Potassium 4.7 3.5 - 5.1 mmol/L Chloride 102 98 - 107 mmol/L CO2 28 22 - 32 mmol/L Anion Gap 6 (L) 7 - 15 mmol/L Glucose 93 70 - 120 mg/dL Calcium 9.5 8.4 - 10.2 mg/dL Lab Results Component Value Date/Time TSH - [facility] 3.42 10/16/2022 08:55 AM TSH - [facility] 3.28 11/13/2021 09:47 AM TSH - [facility] 3.63 10/12/2020 11:09 AM TSH - [facility] 3.24 11/12/2019 10:08 AM TSH - [facility] 2.92 11/10/2018 01:22 PM TSH - [facility] 2.10 10/31/2017 08:09 AM Lab Results Component Value Date/Time PSA - [facility] 6.94 (H) 10/16/2022 08:55 AM PSA - [facility] 4.46 (H) 10/12/2020 11:09 AM PSA - [facility] 3.68 11/10/2018 01:22 PM PSA - [facility] 3.04 10/31/2017 08:09 AM PSA - [facility] 2.64 06/30/2015 11:33 AM PSA SCREENING 1.75 05/03/2011 11:20 AM PSA SCREENING 4.30 11/18/2009 08:23 AM PSA SCREENING 3.69 12/02/2008 09:13 AM O: Blood pressure 122/68, pulse 80, temperature 36.1 C (97 F), temperature source Tympanic, weight 88.9 kg (196 lb), SpO2 97%. He uses a quad cane, really does have trouble getting out of the chair. Lungs seem to have decreased BS left base. Heart regular with ectopics. 1+ pedal edema A: Atherosclerosis of [place] coronary artery of [place] heart without angina pectoris (Primary) - Atorvastatin Calcium 40 MG Oral Tablet (Lipitor); Take 1 Tablet by mouth at bedtime. - Lisinopril 30 MG Oral Tablet; Take 1 Tablet by mouth in the morning. Dyslipidemia, goal LDL below 100 - Atorvastatin Calcium 40 MG Oral Tablet (Lipitor); Take 1 Tablet by mouth at bedtime. BPH with obstruction/lower urinary tract symptoms - Finasteride 5 MG Oral Tablet (Proscar); One daily - oxyBUTYnin Chloride ER 5 MG Oral Tablet Extended Release 24 Hour (Ditropan XL); Take 1 Tablet by mouth in the morning. Acquired hypothyroidism - Levothyroxine Sodium 75 MCG Oral Tablet (Levoxyl); (at least 30 min prior to breakfast or other meds) - TSH WITH FREE T4 IF INDICATED; Future; Expected date: 04/18/2023 Hypertensive heart disease with chronic systolic congestive heart failure (HCC) - Lisinopril 30 MG Oral Tablet; Take 1 Tablet by mouth in the morning. Primary hypertension - Lisinopril 30 MG Oral Tablet; Take 1 Tablet by mouth in the morning. BPH without urinary obstruction - Tamsulosin HCl 0.4 MG Oral Capsule (Flomax); Take 1 Capsule by mouth in the morning. Heart failure, diastolic, due to HTN (HCC) - CBC; Future; Expected date: 04/18/2023 - COMPREHENSIVE METABOLIC PANEL; Future; Expected date: 04/18/2023 - D-DIMER; Future; Expected date: 04/18/2023 - BNP, NT-PRO; Future; Expected date: 04/18/2023 - XR CHEST 2 VIEWS - Torsemide 20 MG Oral Tablet (Demadex); Take 1 Tablet by mouth in the morning. Follow Up: Return in about 6 months (around 10/17/2023) for Clinic Visit. | For: Clinic Visit documented in this encounter Nursing Notes * Vonnie Toussaint LPN - 04/18/2023 8:36 AM EST 6 month recheck Balance has been very bad, especially the last few weeks Feet are swelling a lot too Also has a new cough, but he is not sick. Not sleeping very good either. Very tired. Last night didn't sleep at all. documented in this encounter Plan of Treatment Upcoming Encounters Date Type Department Care Team (Latest Contact Info) Description 04/18/2023 9:20 AM EST Laboratory Laboratory [address] [place] [phone] [facility] [address] [place] [address] Acquired hypothyroidism; Heart failure, diastolic, due to HTN (HCC) 04/18/2023 9:30 AM EST Imaging Radiology [address] [place] [address] Arrived 06/11/2023 10:30 AM EST Office Visit Cardiology [address] [place] [address] Sesar Vargas PA-C [address] [place] [phone] 06/26/2023 8:20 AM EST Office Visit Dermatology [address] [place] [address] Carolynn Dumont PA-C [address] [place] [address] [place] [address] 08/27/2023 10:00 AM EDT Cardiac Studies Cardiology [address] [place] [address] Marya Gaspar [facility] [address] [place] [address] 01/21/2024 2:00 PM EDT Nurse Only Ancillary [address] [place] [address] [place], Nurse Annual Wellness [address] [place] [address] [place] [address] Pending Results Name Type Priority Associated Diagnoses Date /Time TSH WITH FREE T4 IF INDICATED Lab Routine Acquired hypothyroidism 04/18/2023 8:59 AM EST CBC Lab Routine Heart failure, diastolic, due to HTN (HCC) 04/18/2023 8:59 AM EST COMPREHENSIVE METABOLIC PANEL Lab Routine Heart failure, diastolic, due to HTN (HCC) 04/18/2023 8:59 AM EST D-DIMER Lab Routine Heart failure, diastolic, due to HTN (HCC) 04/18/2023 8:59 AM EST BNP, NT-PRO Lab Routine Heart failure, diastolic, due to HTN (HCC) 04/18/2023 8:59 AM EST XR CHEST 2 VIEWS Medical Imaging Routine Heart failure, diastolic, due to HTN (HCC) 04/18/2023 9:10 AM EST Scheduled Orders Name Type Priority Associated Diagnoses Orde r Schedule TSH WITH FREE T4 IF INDICATED Lab Routine Acquired hypothyroidism Expected: 04/18/2023 (Approximate), Expires: 04/17/2024 CBC Lab Routine Heart failure, diastolic, due to HTN (HCC) Expected: 04/18/2023 (Approximate), Expires: 04/17/2024 COMPREHENSIVE METABOLIC PANEL Lab Routine Heart failure, diastolic, due to HTN (HCC) Expected: 04/18/2023 (Approximate), Expires: 04/17/2024 D-DIMER Lab Routine Heart failure, diastolic, due to HTN (HCC) Expected: 04/18/2023 (Approximate), Expires: 04/17/2024 BNP, NT-PRO Lab Routine Heart failure, diastolic, due to HTN (HCC) Expected: 04/18/2023 (Approximate), Expires: 04/17/2024 Health Maintenance Due Date Last Done Comments DTaP,Tdap,and Td Vaccines (2 - Td or Tdap) 01/08/2023 01/08/2013, 05/29/2007 COVID-19 Vaccine ( - season) 2023 04/04/2021, 09/16/2020, 08/19/2020 TSH 10/17/2023 [...] Not on filedocumented as of this encounter Visit Diagnoses Diagnosis Atherosclerosis of [place] coronary artery of [place] heart without angina pectoris- Primary Dyslipidemia, goal LDL below 100 Other and unspecified hyperlipidemia BPH with obstruction/lower urinary tract symptoms Hypertrophy of prostate with urinary obstruction and other lower urinary tract symptoms (LUTS) Acquired hypothyroidism Unspecified hypothyroidism Hypertensive heart disease with chronic systolic congestive heart failure (HCC) Primary hypertension Unspecified essential hypertension BPH without urinary obstruction Hypertrophy of prostate without urinary obstruction and other lower urinary tract symptoms (LUTS) Heart failure, diastolic, due to HTN (HCC) Unspecified hypertensive heart disease with heart failure Acquired hypothyroidism Unspecified hypothyroidism Heart failure, diastolic, due to HTN (HCC) Unspecified hypertensive heart disease with heart failure documented in this encounter Care Teams Tobacco Dipper Relationship Specialty Start Date End Date Zac Harrison MD [address] [place] [address] [place] [address] PCP - General Family Medicine 01/28/14 documented as of this encounter"
--- OUTSIDE RECORDS SUMMARY | 2023-04-20 15:53 | External Medical Summary ---
Author Name Unknown Address Unknown Organization [id number]:[facility] – [place] - [facility] [address] [place] [address] Laboratory Report Ordering Provider Test Date Status BENJAMIN HERNÁNDEZ 04/18/2023 08:59:23 Final Rheumatoid factor at a level above 50 IU/mL may lead to an overestimation of the D-dimer level. A normal D-dimer result (<0.50 ug/mL FEU) has a negative predictive value of approximately 95% for the exclusion of acute pulmonary embolism (PE) or deep vein thrombosis when there is low or moderate pretest PE probability. Increased D-dimer values are abnormal but do not indicate a specific disease state and the D-dimer increase does not definitively correlate with clinical severity of disease. Observation Date Value Abnormality Reference (Units ) Status Fibrin D-dimer FEU [Mass/volume] in Platelet poor plasma by Immunoassay 04/18/2023 08:59:23 1.15 Above high normal <0.50 (ug/mL FEU) Final Performing Location [facility] – [place], [place] - [facility] [place] [address]
--- OUTSIDE RECORDS SUMMARY | 2023-04-20 15:53 | External Medical Summary | Summary of Care ---
Author Name Unknown Organization [facility] Address [address] [place] [address] Phone [phone] Care Team Providers Care Software Configuration Analyst Name Role Phone Zac Harrison MD Primary Care Provider [phone] Reason for Visit * Reason Comments Outpatient Testing Encounter Details Date Type Department Care Team (Late st Contact Info) Description 04/18/2023 9:20 AM EST Laboratory Laboratory [address] [place] [phone] [place] [address] Acquired hypothyroidism; Heart failure, diastolic, due to [...] Release (aspirin enteric coated)Indications:Cor onary atherosclerosis of [place] coronary artery TAKE ONE TABLET BY MOUTH EVERY DAY 100 Tablet 3 12/17/2022 Active Carvedilol 25 MG Oral Tablet (Coreg)Indications:Ath erosclerosis of [place] coronary artery of [place] heart with angina pectoris (HCC),Essential hypertension with goal blood pressure less than 140/90 TAKE ONE TABLET BY MOUTH TWICE DAILY TAKE WITH FOOD 180 Tablet 2 02/16/2023 Active Atorvastatin Calcium 40 MG Oral Tablet (Lipitor)Indications:D yslipidemia, goal LDL below 100,Atherosclerosis of [place] coronary artery of [place] heart without angina pectoris Take 1 Tablet by mouth at bedtime. 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 90 Capsule 1 04/18/2023 Active Torsemide 20 MG Oral Tablet (Demadex)Indications:H eart failure, diastolic, due to HTN (HCC) Take 1 Tablet by mouth in the morning. 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 History of acute anterolateral wall [place] 6 Primary hypertension documented as of this [...] GLAUCOMA Overview: More specified on PL Acute NC, anterior wall 07/2008 Inflamed seborrheic keratosis 03/01/2017 Herpes zoster 01/28/2014 Kidney disease, chronic, sta ge III (GFR 30-59 ml/min) 12/06/2008 Kidney disease, chronic, sta ge II (GFR 60-89 ml/min) 06/13/2010 Hyperlipidemia with target LDL less than 100 12/13/2014 Overview: ICD-10 update of inactive term Subdural hematoma 03/22/2016 Malignant hypertension with systolic CHF, NYHA class 2 07/02/2017 History of acute anterior wall [place] 11/10/2018 documented as of this encounter (statuses [...] money to buy more. Never true 01/17/20 Within the past 12 months, t he [...] Upcoming Encounters Date Type Department Care Team (Late st Contact Info) Description 04/18/2023 9:30 AM EST Imaging Radiology [address] [place] [address] Arrived 06/11/2023 10:30 AM EST Office Visit Cardiology [address] [place] [address] Sesar Vargas PA-C [address] [place] [address] 06/26/2023 8:20 AM EST Office Visit Dermatology [address] [place] [address] Carolynn Dumont PA-C [address] [place] [address] [place] [address] 08/27/2023 10:00 AM EDT Cardiac Studies Cardiology [address] [place] [address] [facility] [address] [place] [address] 01/21/2024 2:00 PM EDT Nurse Only Ancillary [place] [address] [place] [address] Hub[place], Nurse Annual [address] [place] [address] Pending Results Name Type Priority Associated Diagnoses [...] to HTN (HCC) 04/18/2023 8:59 AM EST Health Maintenance Due Date Last Done Comments DTaP,Tdap,and Td Vaccines (2 - Td or Tdap) 01/08/2023 01/08/2013, 05/29/2007 COVID-19 Vaccine ( season) 2023 04/04/2021, 09/16/2020, 08/19/2020 TSH 10/17/2023 [...] as of this encounter Visit Diagnoses Diagnosis Acquired hypothyroidism Unspecified hypothyroidism Heart failure, diastolic, due to HTN (HCC) Unspecified hypertensive heart disease with heart failure documented in this encounter Care Teams Software Configuration Analyst Relationship Specialty Start Date End Date Zac Harrison MD [address] [place] [address] [place] [address] PCP - General Family Medicine 01/28/14 documented as of this encounter
--- OUTSIDE RECORDS SUMMARY | 2023-04-20 15:53 | External Medical Summary | Summary of Care ---
Author Name Unknown Organization [facility] Address [address] [facility] [place] [address] Phone [phone] Care Team Providers Care Dater Assembler Name Role Phone Zac Harrison MD Primary Care Provider [phone] Reason for Visit * Reason Onset Date Comments Defibr[facility]ator Clinic 03/22/2023 Encounter Details Date Type Department Care Team (Late st Contact Info) Description 03/22/2023 Telephone Cardiology [facility] [address] Sesar Vargas PA-C [address] [place] [address] [facility] Allergies No known active allergiesdocumented as of this encounter (statuses as of 03/25/2023) Medications Medication Sig Dispensed Refills Start Date [...] (Lipitor)Indications:D yslipidemia, goal LDL below 100,Atherosclerosis of [place] coronary artery of [place] heart without angina pectoris Take 1 Tablet by mouth at bedtime. 90 Tablet 1 10/16/2022 Active Levothyroxine Sodium 75 MCG Oral Tablet (Levoxyl)Indications:A cquired hypothyroidism (at least 30 min prior to breakfast or other meds) 90 Tablet 1 10/16/2022 Active Lisinopril 30 MG Oral TabletIndications:Hype rtensive heart disease with chronic systolic congestive heart failure (HCC),Primary hypertension,Atheroscl erosis of [place] coronary artery of [place] heart without angina pectoris Take 1 Tablet by mouth in the morning. 90 Tablet 1 10/16/2022 Active Oxybutynin Chloride ER 5 MG Oral Tablet Extended Release 24 Hour (Ditropan XL)Indications:BPH with obstruction/lower urinary tract symptoms Take 1 Tablet by mouth in the morning. 90 Tablet 1 10/16/2022 Active Aspirin Low Dose 81 MG Oral Tablet Delayed Release (aspirin enteric coated)Indications:Cor onary atherosclerosis of [place] coronary artery TAKE ONE TABLET BY MOUTH EVERY DAY 100 Tablet 3 12/17/2022 Active Carvedilol 25 MG Oral Tablet (Coreg)Indications:Ath erosclerosis of [place] coronary artery of [place] heart with angina pectoris (HCC),Essential hypertension with goal blood pressure less than 140/90 TAKE ONE TABLET BY MOUTH TWICE DAILY TAKE WITH FOOD 180 Tablet 2 02/16/2023 Active documented as of this encounter (statuses as of 03/25/2023) Active Problems Problem Noted Date Diagnosed Date Primary open-angle glaucoma, right eye, mild sta ge 12/12/2021 Primary open-angle glaucoma, left eye, severe st age 1104/14/2020 Hypertensive heart disease w ith chronic systolic congestive heart failure 10/30/2018 Actinic keratoses 06/18/2018 Overview: Efudex (06/2018 to hands/arms, face/scalp/ears/neck 03/2019, forearms/dorsal hands 08/2020) Hx of nonmelanoma skin cancer 07/09/2017 Overview: squamous cell carcinoma in situ (L rastafari, L hand near thumb), Keratoacanthoma (L dorsum hand), squamous cell carcinoma (L forearm), basal cell carcinoma with squamous differentiation (L rastafari), bowenoid AK (L rastafari) Dermatophytosis of nail 06/28/2016 Ischemic cardiomyopathy 01/10/2016 Atherosclerosis of [place] co ronary artery of [place] heart without angina pectoris 12/20/2015 Biventricular automatic [...] prior appointment. History of acute anterolateral wall [place] 6 Primary hypertension documented as of this encounter (statuses as of 03/25/2023) Resolved Problems Problem Noted Date Diagnosed Date [...] GLAUCOMA Overview: More specified on PL Acute AK, anterior wall 07 07/2008 Inflamed seborrheic keratosis 03/01/2017 Herpes zoster 01/28/2014 Kidney disease, chronic, sta ge III (GFR 30-59 ml/min) 12/06/2008 Kidney disease, chronic, sta ge II (GFR 60-89 ml/min) 06/13/2010 Hyperlipidemia with target LDL less than 100 12/13/2014 Overview: ICD-10 update of inactive term Subdural hematoma 03/22/2016 Malignant hypertension with systolic CHF, NYHA class 2 07/02/2017 History of acute anterior wall AK 11/10/2018 documented as of this encounter (statuses as of 03/25/2023) Immunizations Name Administration Dates Next Due COVID-19 [...] encounter Miscellaneous Notes * Telephone Encounter - Sesar Vargas PA-C - 03/22/2023 4:21 PM EDT Chart reviewed. Patient with a history of asymptomatic paroxysmal atrial fibrillation/flutter. Risks of anticoagulation have been felt to be greater than the benefit given age, ambulatory dysfunction, history of subdural hematoma, anemia, thrombocytopenia, etc Sesar Vargas PA-C. Department of Cardiology * Telephone Encounter - Smitha Nelson RN - 03/22/2023 10:09 AM EDT Patient is not on anticoagulation: Last Device check was scheduled for 03/17/2023 to monitor for AF episodes. There was no reoccurrence. Today an alert comes in for AF over 6 hour burden. Normal Device Function Events or Alerts: 6 Battery: 2.94 V, 7.58 yrs Sensing, impedance and thresholds reviewed Programmed parameters reviewed Presenting rhythm: Atrial fib and Biventricular paced 90 % Effective Heart Rate Histograms reviewed Additional Notes: Onset of Af was 03/21 @ 1815 hrs. Care alerts were reset thru [facility]. Will monitor and notify of any further AF alerts Smitha Nelson RN documented in this encounter Plan of Treatment Upcoming Encounters Date Type Department Care Team (Late st Contact Info) Description 04/18/2023 8:40 AM EST Office Visit Family Medicine [address] [place] [phone] Zac Harrison MD [address] [place] [address] [place] [address] 06/11/2023 10:30 AM EST Office Visit Cardiology [address] [place] [address] Sesar Vargas PA-C [address] [place] [address] 06/26/2023 8:20 AM EST Office Visit Dermatology [address] [place] [address] Carolynn Dumont PA-C [address] [place] [address] [place] [address] 08/27/2023 10:00 AM EDT Cardiac Studies Cardiology [address] [place] [address] Marya Gas[facility] [place] [address] 01/21/2024 2:00 PM EDT Nurse Only Ancillary [address] [place] [address] [facility] Nurse [address] [place] [address] Health Maintenance Due Date Last Done Comments [...] filedocumented as of this encounter Care Teams Dater Assembler Relationship Specialty Start Date End Date Zac Harrison MD [address] [place] [address] [place] [id number] PCP - General Family Medicine 01/28/14 documented as of this encounter
--- OUTSIDE RECORDS SUMMARY | 2023-04-20 15:53 | External Medical Summary | Summary of Care ---
Author Name Unknown Organization [facility] Address [address] [place] [address] Phone [phone] Care Team Providers Care Wool Scourer Name Role Phone Zac Harrison MD Primary Care Provider [phone] Encounter Details Date Type Department Care Team (Late st Contact Info) Description 03/27/2023 Result Scan Unspecified Department Juan Daniel Ashley, [address] [place] [address] <No scans attached> Allergies No known active allergiesdocumented as of this encounter (statuses as of 03/27/2023) Medications Medication Sig Dispensed Refills Start Date [...] (Lipitor)Indications:D yslipidemia, goal LDL below 100,Atherosclerosis of [place] coronary artery of [place] heart without angina pectoris Take 1 Tablet by mouth at bedtime. 90 Tablet 1 10/16/2022 Active Levothyroxine Sodium 75 MCG Oral Tablet (Levoxyl)Indications:A cquired hypothyroidism (at least 30 min prior to breakfast or other meds) 90 Tablet 1 10/16/2022 Active Lisinopril 30 MG Oral TabletIndications:Hype rtensive heart disease with chronic systolic congestive heart failure (HCC),Primary hypertension,Atheroscl erosis of [place] coronary artery of [place] heart without angina pectoris Take 1 Tablet by mouth in the morning. 90 Tablet 1 10/16/2022 Active Oxybutynin Chloride ER 5 MG Oral Tablet Extended Release 24 Hour (Ditropan XL)Indications:BPH with obstruction/lower urinary tract symptoms Take 1 Tablet by mouth in the morning. 90 Tablet 1 10/16/2022 Active Aspirin Low Dose 81 MG Oral Tablet Delayed Release (aspirin enteric coated)Indications:Cor onary atherosclerosis of [place] coronary artery TAKE ONE TABLET BY MOUTH EVERY DAY 100 Tablet 3 12/17/2022 Active Carvedilol 25 MG Oral Tablet (Coreg)Indications:Ath erosclerosis of [place] coronary artery of [place] heart with angina pectoris (HCC),Essential hypertension with goal blood pressure less than 140/90 TAKE ONE TABLET BY MOUTH TWICE DAILY TAKE WITH FOOD 180 Tablet 2 02/16/2023 Active documented as of this encounter (statuses as of 03/27/2023) Active Problems Problem Noted Date Diagnosed Date [...] nail 06/28/2016 Ischemic cardiomyopathy 01/10/2016 Atherosclerosis of [place] co ronary artery of [place] heart without angina pectoris 12/20/2015 Biventricular automatic [...] prior appointment. History of acute anterolateral wall [place] 6 Primary hypertension documented as of this encounter (statuses as of 03/27/2023) Resolved Problems Problem Noted Date Diagnosed Date [...] GLAUCOMA Overview: More specified on PL Acute [place], anterior wall 07/2008 Inflamed seborrheic keratosis 03/01/2017 Herpes zoster 01/28/2014 Kidney disease, chronic, sta ge III (GFR 30-59 ml/min) 12/06/2008 Kidney disease, chronic, sta ge II (GFR 60-89 ml/min) 06/13/2010 Hyperlipidemia with target LDL less than 100 12/13/2014 Overview: ICD-10 update of inactive term Subdural hematoma 03/22/2016 Malignant hypertension with systolic CHF, NYHA class 2 07/02/2017 History of acute anterior wall [place] 11/10/2018 documented as of this encounter (statuses as of 03/27/2023) Immunizations Name Administration Dates Next Due COVID-19 [...] 8:40 AM EST Office Visit Family Medicine [address] [place] [phone] Zac Harrison MD [address] [place] [address] [place] [address] 06/11/2023 10:30 AM EST Office Visit Cardiology [address] [place] [address] Sesar Vargas PA-C [address] [place] [address] 06/26/2023 8:20 AM EST Office Visit Dermatology [address] [place] [address] Carolynn Dumont PA-C [address] [place] [address] [place] [address] 08/27/2023 10:00 AM EDT Cardiac Studies Cardiology [address] [place] [address] [facility] [address] [place] [address] 01/21/2024 2:00 PM EDT Nurse Only Ancillary [place] [address] [place] [address] Hub[place], Nurse [address] [place] [address] Health Maintenance Due Date Last Done Comments DTaP,Tdap,and Td Vaccines (2 - Td or Tdap) 01/08/2023 01/08/2013, 05/29/2007 COVID-19 Vaccine (4 - 2022-24 season) 2023 04/04/2021, 09/16/2020, 08/19/2020 TSH 10/17/2023 [...] Date/Time Associated Diagnosis Comments CARDIOLOGY SCANNED RESULT 03/27/2023 documented in this encounter Results * CARDIOLOGY SCANNED RESULT (03/27/2023) 03/27/2023 Juan Daniel Ashley DO OTHER documented in this encounter Care Teams Wool Scourer Relationship Specialty Start Date End Date Zac Harrison MD [address] [place] [address] [place] [address] PCP - General Family Medicine 01/28/14 documented as of this encounter
--- OUTSIDE RECORDS SUMMARY | 2023-04-20 15:54 | External Medical Summary | Summary of Care ---
Author Name Unknown Organization [facility] Address [address] [place] [address] Phone [phone] Care Team Providers Care Rn Med Surg Name Role Phone Zac Harrison MD Primary Care Provider [phone] Encounter Details Date Type Department Care Team Description 12/14/2022 Result Scan Unspecified Department Juan Daniel Ashley, DO [address] [place], [place] [phone] <No scans attached> Allergies No known active allergiesdocumented as of this encounter (statuses as of 12/14/2022) Medications Medication Sig Dispensed Refills Start Date [...] Release (aspirin enteric coated)Indications:Cor onary atherosclerosis of [place] coronary artery TAKE ONE TABLET BY MOUTH EVERY DAY 100 Tablet 1 02/17/2022 Active Carvedilol 25 MG Oral Tablet (Coreg)Indications:Ath erosclerosis of [place] coronary artery of [place] heart with angina pectoris (HCC),Essential hypertension with goal blood pressure less than 140/90 Take by mouth 1 Tablet in the morning AND 1 Tablet before bedtime. With food.. 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 90 Tablet 10/16/2022 Active Levothyroxine Sodium 75 MCG Oral Tablet (Levoxyl)Indications:A cquired hypothyroidism (at least 30 min prior to breakfast or other meds) 90 Tablet 10/16/2022 Active Lisinopril 30 MG Oral TabletIndications:Hype rtensive heart disease with chronic systolic congestive heart failure (HCC),Primary hypertension,Atheroscl erosis of [place] coronary artery of [place] heart without angina pectoris Take 1 Tablet by mouth in the morning. 90 Tablet 10/16/2022 Active Oxybutynin Chloride ER 5 MG Oral Tablet Extended Release 24 Hour (Ditropan XL)Indications:BPH with obstruction/lower urinary tract symptoms Take 1 Tablet by mouth in the morning. 90 Tablet 10/16/2022 Active documented as of this encounter (statuses as of 12/14/2022) Active Problems Problem Noted Date Primary open-angle glaucoma, right eye, mild stage 12/12/2021 Primary open-angle glaucoma, left eye, s evere stage 04/14/2020 Hypertensive heart disease with chronic systolic congestive heart failure 10/30/2018 Actinic keratoses 06/18/2018 Overview: Efudex (06/2018 to hands/arms, face/scalp/ears/neck 03/2019, forearms/dorsal hands 08/2020) Hx of nonmelanoma skin cancer 07/09/2017 Overview: squamous cell carcinoma in situ (L roman catholic, L hand near thumb), Keratoacanthoma (L dorsum hand), squamous cell carcinoma (L forearm), basal cell carcinoma with squamous differentiation (L roman catholic), bowenoid AK (L roman catholic) Dermatophytosis of nail 06/28/2016 Ischemic cardiomyopathy 01/10/2016 Atherosclerosis of [place] co ronary artery of [place] heart without angina pectoris 12/20/2015 Biventricular automatic [...] prior appointment. History of acute anterolateral wall [place] 0 12/16/1995 Primary hypertension documented as of this encounter (statuses as of 12/14/2022) Resolved Problems Problem Noted Date Resolved Date Closed fracture of right ankle with routine heal ing 06/16/2020 10/12/2020 Overview: Acute lateral malleolar fracture. Presumed acute medial malleolar tip osseous avulsion injury. Benign neoplasm of colon 01/30/2007 018 Overview: 7 mm polyp distal ascending colon, 11 mm polyp proximal sigmoid Chronic renal insufficiency 11/25/2003 070 07/2008 Overview: GFR 37.5 CORONARY ATHEROSCLER. OF [place] CORONARY VESSEL 11/23/2003 03/01/2017 Other forms of retinal detachment(361.89) 200301/28/2014 PRIM OPEN ANGLE GLAUCOMA 022 Overview: More specified on PL Acute [place], anterior wall 12/03/19 09 Inflamed seborrheic keratosis Herpes zoster 01/28/2014 Kidney disease, chronic, stage III (GFR 30-59 ml /min) 12/06/2008 Kidney disease, chronic, stage II (GFR 60-89 ml/ min) 06/13/2010 Hyperlipidemia with target LDL less than 100 12/13/2014 Overview: ICD-10 update of inactive term Subdural hematoma 03/22/2016 Malignant hypertension with systolic CHF, NYHA c lass 2 07/02/2017 History of acute anterior wall [place] 11/10/2018 documented as of this encounter (statuses as of 12/14/2022) Immunizations Name Administration Dates Next Due COVID-19 mRNA, LNP-s, No Pre serve, 2-Dose Series (Moderna) 04/04/2021,09/16/2020,08/19/2020 Pneumococcal Conjugate Vacc, 13 Valent (Prevnar) 08/27/2014 Seasonal Influenza, Quadriva lent Hd (Fluzone Hd) 03/02/2022,04/17/2021 Seasonal Influenza, Quadriva lent, No Preserve, 6 Mons & Above, IM 05/12/2018,03/01/2017 Seasonal Influenza, Quadriva lent, No Preserve, Adjuvanted, 65+ Yrs, IM 03/23/2020 Seasonal Influenza, Quadriva lent, No Preserve, IM [...] got money to buy more. Never true 12/28/2021 Within the past 12 months, t he food you bought just didn't last and you didn't have money to get more. Never true 12/28/2021 Sex Assigned at Date Recorded Male 12/23/2020 2:20 PM E DT Job Start Date Occupation Industry Not on file Not on file Not on file documented as of this encounter Plan of Treatment Upcoming Encounters Date Type Specialty Care Team Description 01/02/2023 Nurse Only Ancillary Nurse [facility] [address] [place] [address] [place] [address] 01/21/2023 Office Visit Dermatology Carolynn Dumont PA-C [address] [place] [address] [place] [address] 04/18/2023 Office Visit Family Medicine Zac Harrison MD [address] [place] [address] [place] [address] 06/11/2023 Office Visit Cardiology Sesar Vargas PA-C [address] [place] [address] 08/27/2023 Cardiac Studies Cardiology Marya Gaspar [facility] [address] [place] [address] Health Maintenance Due Date Last Done Comments COVID-19 Vaccine (4 - Moderna series) 05/30/2021 04/04/2021, 09/16/2020, 08/19/2020 Depression Screening, Annual for Pts 12 and Over 12/28/2022 12/28/2021 DTaP,Tdap,and Td Vaccines (2 - Td or Tdap) 01/08/2023 01/08/2013, 05/29/2007 Influenza Vaccine (FLU shot) (#1) 2023 03/02/2022, 04/17/2021, 03/23/2020, Additional history exists TSH 10/17/2023 10/16/2022, 11/01, 10/12/2020, Additional history exists Albumin/Creatinine Ratio 10/16/2025 023, 11/13/2021, 10/12/2020, Additional history exists Pneumococcal Vaccine: 65+ Years Completed 08/27/2014, 05/29/2005, 03/16/1997 GARDASIL-HPV IMMUNIZATION SERIES Aged Out No longer [...] Date/Time Associated Diagnosis Comments CARDIOLOGY SCANNED RESULT 12/14/2022 documented in this encounter Results * CARDIOLOGY SCANNED RESULT (12/14/2022) 12/14/2022 Juan Daniel Ashley DO OTHER documented in this encounter Care Teams Rn Med Surg Relationship Specialty Start Date End Date Zac Harrison MD [address] [place] [address] [place] [address] PCP - General Family Medicine 01/28/14 documented as of this encounter
--- OUTSIDE RECORDS SUMMARY | 2023-04-20 15:54 | External Medical Summary | Summary of Care ---
Author Name Unknown Organization [facility] Address [address] [place] [address] Phone [phone] Care Team Providers Care Cosmetology Instructor Name Role Phone Zac Harrison MD Primary Care Provider [phone] Reason for Referral * Evaluate & Treat - Unlimited Visits (Within 10 days (routine)) - Authorized Specialty Diagnoses / Procedures Referred By Blanca t Referred To Contact Gastroenterology Diagnoses Rectal bleeding Zac Harrison MD [address] [place] [address] [place] [address] Referral ID Status Reason Start Date Expiration Date Visits Requested Visits Authorized [id number] Authorized Specialty Services Required 01/16/2023 999 999 Question Answer Referral Priority Within 10 days (routine) For what condition is the patient being referred? All Gastro Conditions Comments Pt has 3 days of bright red rectal bleeding 01/09-01/11/23, pt did give him 2 pads that were saturated. Last colonoscopy was 01/2018 at [facility], see epic Reason for Visit * Reason Comments Adult Annual Wellness Visit, Subsequent Visit Encounter Details Date Type Department Care Team Description 01/16/2023 Nurse Only Ancillary Grace Rosenthal [address] [place] [address] [place] Nurse [address] [place] [address] Adult Annual Wellness Visit, Subsequent Visit Allergies No known active allergiesdocumented as of this encounter (statuses as of 01/16/2023) Medications Medication Sig Dispensed Refills Start Date [...] Pain, Mild. 20 Tablet 0 02/09/2022 Active Carvedilol 25 MG Oral Tablet (Coreg)Indications:Ath erosclerosis of [place]op[place] coronary artery of [place] heart with angina pectoris (HCC),Essential hypertension with [...] (Lipitor)Indications:D yslipidemia, goal LDL below 100,Atherosclerosis of [place] coronary artery of [place] heart without angina pectoris Take 1 Tablet by mouth at bedtime. 90 Tablet 1 10/16/2022 Active Levothyroxine Sodium 75 MCG Oral Tablet (Levoxyl)Indications:A cquired hypothyroidism (at least 30 min prior to breakfast or other meds) 90 Tablet 10/16/2022 Active Lisinopril 30 MG Oral TabletIndications:Hype rtensive heart disease with chronic systolic congestive heart failure (HCC),Primary hypertension,Atheroscl erosis of [place] coronary artery of [place] heart without angina pectoris Take 1 Tablet by mouth in the morning. 90 Tablet 1 10/16/2022 Active Oxybutynin Chloride ER 5 MG Oral Tablet Extended Release 24 Hour (Ditropan XL)Indications:BPH with obstruction/lower urinary tract symptoms Take 1 Tablet by mouth in the morning. 90 Tablet 1 10/16/2022 Active Aspirin Low Dose 81 MG Oral Tablet Delayed Release (aspirin enteric coated)Indications:Cor onary atherosclerosis of [place] coronary artery TAKE ONE TABLET BY MOUTH EVERY DAY 100 Tablet 3 12/17/2022 Active documented as of this encounter (statuses as of 01/16/2023) Active Problems Problem Noted Date Primary open-angle glaucoma, right eye, mild stage 12/12/2021 Primary open-angle glaucoma, left eye, s evere stage 04/14/2020 Hypertensive heart disease with chronic systolic congestive heart failure 10/30/2018 Actinic keratoses 06/18/2018 Overview: Efudex (06/2018 to hands/arms, face/scalp/ears/neck 03/2019, forearms/dorsal hands 08/2020) Hx of nonmelanoma skin cancer 07/09/2017 Overview: 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 History of acute anterolateral wall NV 0 12/16/1995 Primary hypertension documented as of this encounter (statuses as of 01/16/2023) Resolved Problems Problem Noted Date Resolved Date Closed fracture of right ankle with routine heal ing 06/16/2020 10/12/2020 Overview: Acute lateral malleolar fracture. Presumed acute medial malleolar tip osseous avulsion injury. Benign neoplasm of colon 01/30/2007 018 Overview: 7 mm polyp distal ascending colon, 11 mm polyp proximal sigmoid Chronic renal insufficiency 11/25/200307/2008 Overview: GFR 37.5 CORONARY ATHEROSCLER. OF [place] CORONARY VESSEL 11/23/2003 03/01/2017 Other forms of retinal detachment(361.89) 200301/28/2014 PRIM OPEN ANGLE GLAUCOMA 022 Overview: More specified on PL Acute NV, anterior wall 12/03/19 09 Inflamed seborrheic keratosis Herpes zoster 01/28/2014 Kidney disease, chronic, stage III (GFR 30-59 ml /min) 12/06/2008 Kidney disease, chronic, stage II (GFR 60-89 ml/ min) 06/13/2010 Hyperlipidemia with target LDL less than 100 12/13/2014 Overview: ICD-10 update of inactive term Subdural hematoma 03/22/2016 Malignant hypertension with systolic CHF, NYHA c lass 2 07/02/2017 History of acute anterior wall NV 11/10/2018 documented as of this encounter (statuses as of 01/16/2023) Immunizations Name Administration Dates Next Due COVID-19 [...] Smoking Tobacco: Never Smokeless Tobacco: Former Snuff Tobacco Cessation:Counseling Given: Not Answered Comments:Quit 30 years ago. Alcohol Use Standard [...] Sign Reading Time Taken Comments Blood Pressure 124/60 01/16/2023 2:07 PM EDT Pulse 74 01/16/2023 2:07 PM EDT Temperature 36.3 C (97.4 F) 01/16/2023 2:07 PM ED T Respiratory Rate - - Oxygen Saturation 97% 01/16/2023 2:07 PM EDT Inhaled Oxygen Concentration - - Weight 86.6 kg (191 lb) 01/16/2023 2:07 PM EDT Height 180.3 cm (5' 11") 01/16/2023 2:07 PM EDT Body Mass Index 26.64 01/16/2023 2:07 PM EDT documented in this encounter Patient Instructions * Patient Instructions* Haven Hairston RN - 01/16/2023 3:04 PM EDT Hi Mr. Roper, As your primary care physician, I know that regular visits with my patients who have several chronic conditions can go a long way in helping you stay healthy. Many times, the clinic team and I are in touch with you and/or other care team members between office visits to adjust medications, discuss any changes in your health, and review our care plan to make sure it is still meeting your needs. I am dedicated to helping you take a more active role in your overall care. It is important that there are resources available to you, so I created a personalized plan of care with a Health Calendar for you, which is included on the next page of this letter. Below is a list that summarizes your electronic health record: Health Maintenance Due: Health Maintenance Due Topic Date Due COVID-19 Vaccine (4 - Moderna series) 05/30/2021 Depression Screening, Annual for Pts 12 and Over 12/28/2022 DTaP,Tdap,and Td Vaccines (2 - Td or Tdap) 01/08/2023 Current Medication List: (as of Visit date not found (in office), Visit date not found (telemedicine) ) Current Outpatient Medications Medication Sig Dispense Refill [...] needed for Pain, Mild. 20 Tablet 0 Carvedilol 25 MG Oral Tablet (Coreg) Take by mouth 1 Tablet in the morning AND 1 Tablet before bedtime. With food.. 180 Tablet 1 Tamsulosin HCl 0.4 MG Oral Capsule (Flomax) [...] 24 Hour (Ditropan XL) Take 1 Tablet bymouth in the morning. 90 Tablet 1 Aspirin Low Dose 81 MG Oral Tablet Delayed Release (aspirin enteric coated) TAKE ONE TABLET BY MOUTH EVERY DAY 100 Tablet 3 No current facility-administered medications for this visit. Current List of Allergies: (as of Visit date not found (in office), Visit date not found (telemedicine) ) Review of patient's allergies indicates: No Known Allergies Most Recent Lab Results: Results for orders placed or performed in visit on 10/16/22 TSH WITH FREE T4 IF INDICATED Result Value Ref Range TSH 3.42 0.27 - 4.20 uIU/mL ALBUMIN / CREATININE RATIO, URINE Result Value Ref Range Albumin, Random Urine 2.24 mg/dL Creatinine, Random Urine 84 mg/dL Albumin / Creatinine Ratio, Urine 27 <30 mg/g Creat PSA Result Value Ref Range PSA 6.94 (H) <4.10 ng/mL Sincerely, Zac Harrison MD 01/16/2023 [facility] Calendar (as of Visit date not found (in office), Visit date not found (telemedicine) ) Care needs Care needs Last completed Due next COVID-19 Vaccine (4 - Moderna series) 04/04/2021 05/30/2021 Diphtheria, tetanus & pertussis vaccines (2 - Td or Tdap) 01/08/2013 01/08/2023 Flu vaccine (recommended) (1) 03/02/2022 02/01/2023 Yearly thyroid level check 10/16/2022 10/17/2023 Urine albumin/creatinine test 10/16/2022 10/16/2025 As you look over the recommended services, be sure to check with your insurance company to determine what's covered. [employer] is a great tool that helps you review your medical record online, including test results, doctor notes and your health summary. You can also schedule appointments with me and other members of your care team, request prescription refills and ask for advice related to your medical conditions at [email or web address]. documented in this encounter Progress Notes * Haven Hairston RN - 01/16/2023 2:09 PM EDT AD8 Dementia Screening Interview Person answering questions: patient Remember, "Yes, a change" indicates that there has been a change in the last several years caused by cognitive (thinking and memory) problems 1. Problems with judgement (eg: problems making decisions, bad financial decisions, problems with thinking). No (0) 2. Less interest in hobbies/activities. No (0) 3. Repeats the same things over and over (questions, stories, or statements). No (0) 4. Trouble learning how to use a tool, appliance, or gadget (eg: VCR, computer, microwave, remote control). No (0) 5. Forgets correct month or year. No (0) 6. Trouble handling complicated financial affairs (eg: balancing checkbook, income taxes, paying bills). No (0) 7. Trouble remembering appointments. No (0) 8. Daily problems with thinking and/or memory. Yes (1) TOTAL AD8: 1 - AD8 Dementia Screening Score The final score is a sum of the number items marked "Yes, A Change". 0 - 1: Normal cognition; 2 or greater: Cognitive impairments is likely to be present - further testing required Adult Annual Wellness Visit: Horace Roper is a 87 year old male who presents for an Adult Annual Wellness Visit. Depression Screening: Did the patient complete the screening questionnaire for Depression? Yes Is the patient's total score for Depression 15 or greater? No, no further intervention needed, unless requested by patient. Did the patient answer positively to the suicide question? No, no further intervention needed, unless requested by patient. In general, compared to other people your age, what would you say that your health is? Good Ht Readings from Last 1 Encounters: 01/16/23 1.803 m (5' 11") Wt Readings from Last 1 Encounters: 01/16/23 86.6 kg (191 lb) Body Mass Index: BMI Less than 30 Body mass index is 26.64 kg/m. BP Readings from Last 1 Encounters: 01/16/23 124/60 Medical/Surgical/Family History Reviewed: Yes Past Medical History: Diagnosis Date Acute NV, anterior wall (HCC) 12/16/1995 Anterolateral NV at [facility]. Recieved TPA and did well. Adenomatous polyp [...] tip osseous avulsion injury. Coronary atherosclerosis of [place] coronary artery Diverticulosis of colon 01/30/2007 severe [...] until PSA 20 Subdural hematoma (HCC) 07/31/2014 [place] Past Surgical History: Procedure Laterality Date BIMALLEOLAR ANKLE FX W/ FIXATION Right 07/01/2020 OPEN TREATMENT BIMALLEOLAR ANKLE FRACTURE performed by Radha Hardin DPM at [facility] COLONOSCOPY W/ LESION REMOVAL, SNARE 01/30/2007 polyps removed distal ascending and prox sigmoid COLONOSCOPY W/ LESION REMOVAL, SNARE 01/30/2010 polyps path shows adenomatous tissue, repeat in 3 years COLONOSCOPY W/ LESION REMOVAL, SNARE 01/01/2018 2 mm adenomatous polyp transverse colon COLONOSCOPY, DIAGNOSTIC (RECTUM) 01/22/2013 polyp--no evidence of adenomatous tissue--repeat in 5 yrs COLONOSCOPY, DIAGNOSTIC (RECTUM) 01/01/2018 adenomatous polyp, diverticulosis / [facility] ECHO, COMPLETE (2D), TRANS-THORACIC 09/18/2014 severely dilated [...] INSERT/REPLACE ICD, SINGLE OR DUAL CHAMBER 11/16/2014 [place] NEEDLE/PUNCH BIOPSY OF PROSTATE 07/19/2014 REMOVAL OF DEEP SUPPORT IMPLANT Right 02/09/2022 REMOVAL OF IMPLANT DEEP performed by Tisha Dykes DPM at OR [facility] REMOVE CATARACT, INSERT LENS PROSTH 04/26/1999 right REMOVE CATARACT, INSERT LENS PROSTH 11/11/2000 left REPAIR DETACHED RETINA, VITRECTOMY REPAIR INITIAL INGUINAL HERNIA REDUCIBLE AGE 5 OR MORE Inguinal Hernia Repair,5+Y/O,Reducibl Family History Problem Relation Age of Onset Cancer Father throar cancer Heart Disorder Mother Has patient ever had cancer? History of cancer, type: prostate and skin ca Social History Tobacco Use Smoking status: Never Smokeless tobacco: Former Types: Snuff Tobacco comments: Quit 30 years ago. Substance Use Topics Alcohol use: Yes Comment: 5-8 beers/year. Vaping/E-Cigarette Use Vaping/E-Cigarette Use Never User Vaping/E-Cigarette Substances Vaping/E-Cigarette Devices Tobacco/Alcohol screening completed today? Yes Hospital Care: Admissions (within the last year): Not Applicable ER within 30 days: No Does the patient have an Advance Directives/Living Will? Yes Last Physical Exam: Last physical exam: Does patient see primary provider regularly? Yes Does patient see other providers? Yes, Specialist Patient Care Team updated? Yes Review of patient's allergies indicates: No Known Allergies Immunization History Administered Date(s) Administered COVID-19 mRNA, LNP-s, No Preserve, 2-Dose Series (Moderna) 08/19/2020, 09/16/2020, 04/04/2021 Influenza, Whole Virus 05/01/2000 Pneumococcal Conjugate Vacc, 13 Valent (Prevnar) 08/27/2014 Pneumococcal Polysaccharide PPV23 (Pneumovax) 03/16/1997, 05/29/2005 Seasonal Influenza, Quadrivalent Hd (Fluzone Hd) 04/17/2021, 03/02/2022 Seasonal Influenza, Quadrivalent, No Preserve, 6 Mons & Above, IM 03/01/2017, 05/12/2018 Seasonal Influenza, Quadrivalent, No Preserve, Adjuvanted, 65+ Yrs, IM 03/23/2020 Seasonal Influenza, Quadrivalent, No Preserve, IM 03/03/2015, 03/22/2016 Seasonal Influenza, Split, IIV3, With Preserve, Inj 05/05/2001, 04/15/2002, 03/16/2003, 03/13/2004,03/30/2005, 04/04/2006, 03/06/2007, 03/16/2008, 03/29/2009, 02/21/2010, 02/21/2011, 02/21/2012, 02/16/2013, 02/23/2014 Seasonal Influenza, Trivalent, Adjuvanted, 65+ yrs 04/02/2019 TD - Tetanus/Diptheria (ADULT) 05/29/2007 TDAP (age 10 and older)(Boostrix) 01/08/2013 Varicella Zoster Vaccine (Adult) 01/26/2013 Zoster Vaccine Recombinant (Shingrix) 05/12/2019, 07/14/2019 Current Outpatient Medications Medication Sig Dispense Refill [...] needed for Pain, Mild. 20 Tablet 0 Carvedilol 25 MG Oral Tablet (Coreg) Take by mouth 1 Tablet in the morning AND 1 Tablet before bedtime. With food.. 180 Tablet 1 Tamsulosin HCl 0.4 MG Oral Capsule (Flomax) [...] BY MOUTH EVERY DAY 100 Tablet 3 No current facility-administered medications for this visit. Patient Active Problem List Diagnosis Code Primary hypertension I10 ADVANCE DIRECTIVE INFORMATION Acquired hypothyroidism E03.9 Dyslipidemia, goal LDL below 100 E78.5 BPH with obstruction/lower urinary tract symptoms N40.1, N13.8 Prostate cancer ([facility]) C61 Biventricular automatic implantable cardioverter defibrillator in situ Z95.810 Chronic systolic CHF (congestive heart failure), NYHA class 2 ([facility]) I50.22 Atherosclerosis of [place]op[place] coronary artery of [place] heart without angina pectoris I25.10 Ischemic cardiomyopathy I25.5 Dermatophytosis of nail B35.1 Hx of nonmelanoma skin cancer Z85.828 Actinic keratoses L57.0 Hypertensive heart disease with chronic systolic congestive heart failure (HCC) I11.0, I50.22 History of acute anterolateral wall NV I25.2 Primary open-angle glaucoma, left eye, severe stage H40.1123 Primary open-angle glaucoma, right eye, mild stage H40.1111 Medication Compliance: Patient is able to obtain all of his medications? Yes Patient takes medications as prescribed? Yes Patient manages own medications: Yes Patient uses a pill box? Yes, refill(s) completed by self Dental Exam: full dentures Eye Screening: Yes: Every 6 mths Are you having trouble with hearing? No Do you use an assistive device to help your hearing? No Exercise Screening: exercises 5-6 times per week, exercise legs, Nutrition Assessment: Eats three meals a day Pain Screening: Are you having any pain? No but pt and had a concern about rectal bleeding last week for 3 days, pt states he had large amt of bright red bleeding and "soaked" 3 pads. Pt states no problems since. Pt denies any pain , no constipation or diarrhea. Sleep Screening Tool 'STOP': Do you snore? No Do you feel fatigued during the day? No Do you wake up feeling like you haven't slept? No Have you been told you stop breathing at night? Yes Do you gasp for air or choke while sleeping? No Have you been told you have Sleep Apnea? No Do you have high blood pressure or are on medication(s) to control high blood pressure? Yes SCORE: If you check YES to two or more questions, make a referral for Obstructive Sleep Apnea Pt states she has noticed occ apnea pt declined emigdio referral Patient and Caregiver Support System: Patient lives with a spouse Means of Transportation: Drives. Concerns identified are: night or long distance Patient lives in One Story - with basement stairs: 13 basement , 5 to porch and 6 on the walk out basement. Community Resources: Not Applicable Functional Status and ADL Skills: Has patient ever had an amputation? No Functional Assessment: 90- Able to carry on normal activity, minor symptoms of disease Ambulation: Patient ambulates with assistive device. Cane and Walker Dressing: Gets clothes and dresses without any assistance: Independent Able to move freely in chair or bed including turning over: Independent Repositioning (bed or chair): Not applicable Transfers: Independent Toileting: Goes to bathroom, uses toilet, arranges clothes and returns without any assistance: Independent Toileting: continent of bladder and continent of bowel Feeding: Self Bathing: Self; walk in shower grab bars Requires none assistance with ADLs. Instrumental ADL's: Shopping: Minimal Assistance Housekeeping: Minimal Assistance Handling Finances: Minimal Assistance DME Vendor Name: Not Applicable Fall Risk Assessment: Can the patient demonstrate that he can stand from a sitting position? Yes Has the patient had a fall within the last 6 months? Yes Does the patient have a problem with his gait or balance? Yes Does the patient take 4 or more prescription medicines? Yes Does the patient use sedatives or narcotics? No Fall Risk Factors Present: Uses more than 4 medications Uses assistive devices Balance or gait disturbances Lower extremity weakness Visually impaired Older than age 70 Wba-Aw-cmh-Go Test: Time began at 200. Patient stood from sitting position and walked approximately 10 feet, returned and sat down. Total time for sks-df-ybr-go test was 12 seconds. Tby-Eq-jqw-Go Test completed? Yes Gender Specific Preventative Plan: Health Maintenance Topic Date Due COVID-19 Vaccine (4 - Moderna series) 05/30/2021 Depression Screening, Annual for Pts 12 and Over 12/28/2022 DTaP,Tdap,and Td Vaccines (2 - Td or Tdap) 01/08/2023 Influenza Vaccine (FLU shot) (1) 02/01/2023 TSH 10/17/2023 Albumin/Creatinine Ratio 10/16/2025 Pneumococcal Vaccine: 65+ Years Completed Hepatitis B Aged Out MENINGOCOCCAL (MENACTRA/MENVEO) Aged Out GARDASIL-HPV IMMUNIZATION SERIES Aged Out Follow Up/ Referrals/Handouts: Depression screening - completed Functional assessment - pt really having problems with balance. Falls Risk screening - discussed and encouraged pt to use walker and cane Exercise screening - If poor exercise habits, provide exercise handouts Nutrition assessment -. Education Provided Pain screening - none, but and pt stated he noticed hvy bright red bleeding last wk, gavehim 2 pads and she said they were saturated. Incontinence screening - pt has had prostate cancer and on meds Patient has been verbally educated on the need or importance of Colon Cancer Screening, GFR, Glucose, and Immunizations: shingles,flu,covid Pt has completed the covid vaccines: No, declined bivalent Flu and shingrix completed Routine general medical examination at a health care facility (Primary) Rectal bleeding - GASTROENTEROLOGY REFERRAL OP Acquired hypothyroidism - Med reconciliation completed and compliance discussed. - pt to continue present medications. Biventricular automatic implantable cardioverter defibrillator in situ -pt does follow up with cardiology BPH with obstruction/lower urinary tract symptoms - Med reconciliation completed and compliance discussed. - pt to continue present medications. Dyslipidemia, goal LDL below 100 - Med reconciliation completed and compliance discussed. - pt to continue present medications. Lab Results Component Value Date/Time LDL CHOLESTEROL (CALCULATED) - [facility] 31 02/01/2022 02:38 PM LDL CHOLESTEROL (CALCULATED) - [facility] 28 11/12/2019 10:08 AM LDL CHOLESTEROL (DIRECT MEASURE) - [facility] NOT APPLICABLE 11/12/2019 10:08 AM LDL CHOLESTEROL (DIRECT MEASURE) - [facility] 105 (H) 11/26/2006 08:53 AM Hx of nonmelanoma skin cancer -pt does follow up with dermatology Primary open-angle glaucoma, left eye, severe stage Primary open-angle glaucoma, right eye, mild stage - Med reconciliation completed and compliance discussed. - pt to continue present medications. - pt does follow up q 6mths Prostate cancer (HCC) PSA Results: Lab Results Component Value Date/Time PSA - [facility] 6.94 (H) 10/16/2022 08:55 AM PSA - [facility] 4.46 (H) 10/12/2020 11:09 AM PSA - [facility] 3.68 11/10/2018 01:22 PM PSA - [facility] 3.04 10/31/2017 08:09 AM PSA - [facility] 2.64 06/30/2015 11:33 AM PSA SCREENING 1.75 05/03/2011 11:20 AM PSA SCREENING 4.30 11/18/2009 08:23 AM PSA SCREENING 3.69 12/02/2008 09:13 AM Pt will discuss at next PCP appointment, Appointment sched for GI this week to evaluate the rectal bleeding. Follow Up: Return in 1 year (on 01/17/2024) for 12 month Subsequent Adult Wellness Visit. | For: 12 month Subsequent Adult Wellness Visit | Check-out note: 12 month Subsequent Adult Wellness Visit Would patient like to schedule next AWV visit? Yes Haven Hairston RN documented in this encounter Miscellaneous Notes * Pt Handout (on AVS) - Haven Hairston RN - 01/16/2023 2:39 PM EDT Images from the original note were not included. [id number] A Sample Walking Program Experts recommend walking briskly on most days. Aim for a target of 30 minutes on most days, or 150or more minutes a week. Walking programs can help you reach this goal by slowly increasing the frequency and the amount of time you walk. Try this walking program: First week Walk 3 times a week. Walk for 5 minutes each time. Second week Walk 3 times a week. Walk for 10 minutes each time. Third week Walk 3 times a week. Walk for 13 minutes each time. Fourth week Walk 3 times a week. Walk for 15 minutes each time. Fifth week Walk 4 times a week. Walk for 15 minutes each time. Sixth week and beyond Gradually increase the number of times you walk each week and the number of minutes you walk each time until you reach 30 minutes on 5 to 7 days of the week. Tips for getting the most from your walking program Walk briskly. If you can sing, speed up. If you can?t talk easily, slow down. Choose good walking shoes with padded soles and good arch support. Don?t use hand or ankle weights. They can cause injuries. Walk indoors if the weather is bad. Use a treadmill or walk inside a shopping mall. Before you start walking, check with your healthcare provider if you're new to exercise, older thanage 40, overweight, or a smoker. Also check with your provider if you have heart disease, high blood pressure, diabetes, arthritis, asthma, or any other health problems. Your provider can help you get started and stay safe. Last Reviewed Date: 12/01/202019993265-2856 [employer]. All rights reserved. This information is not intended as a substitute for professional medical care. Always follow your healthcare professional's instructions. * Pt Handout (on AVS) - Haven Hairston RN - 01/16/2023 2:39 PM EDT [id number] Evaluating and Treating Rectal Bleeding To find the site and cause of your bleeding, you'll have a physical exam. You'll be asked about your health history. Tests may be done to help confirm the diagnosis and plan your treatment. Tests you may have As part of your evaluation, a flexible sigmoidoscopy or colonoscopy may be done. Any of these tests may be done: Stool sample. A small amount of your stool will be checked for blood. Anoscopy. This test uses a small tube (anoscope) to examine the anus. It checks for problems such as hemorrhoids. Sigmoidoscopy. This test uses a lighted tube to check your rectum and the part of the large intestine that's closest to the rectum (the sigmoid colon). Colonoscopy. This test looks at your rectum and entire colon. You may be given medicine through an IV (intravenous) line to help you relax. Lower GI (gastrointestinal) series, orbarium enema. This is an X-ray test to view your colon. A milky liquid containing barium is passed through your rectum and into the colon. This liquid makes it easy to see your colon on the X-ray. This test is not done that often anymore. Upper endoscopy. This test checks your esophagus, stomach, and upper small intestine. It's done in cases of rectal bleeding along with other symptoms like low blood pressure and rapid heartbeat. This test may also be done if your stools are dark black and tarry. Capsule endoscopy. For this test, you swallow a pill that has a tiny camera inside. The camera takes pictures of your small intestine. It can get to areas that are hard to reach with colonoscopy and upper endoscopy. Balloon or spiral enteroscopy. These tests use a special tube (scope) to get deep into the smallintestine. Tagged red blood cell scan. This test luna (tags) red blood cells with very small amounts of radioactive material. The cells can then be seen and tracked on a scan. Angiography. This test threads a tube (catheter) through a vein, often in the leg. Dye is injected through the tube into your blood vessels to see where the bleeding is taking place. Your treatment plan Your treatment will depend on the cause of your rectal bleeding, as well as the severity of the bleeding. Your healthcare provider will create a treatment plan that?s right for you. Sometimes rectal bleeding stops on its own. If it does, be sure to see your provider to check that the problem wasn?tserious. What you can do Follow all your healthcare provider?s instructions. Keep working with your provider after your treatment. Make and keep your follow-up visits. If you have more rectal bleeding, call your provider. Itmay be a sign of the same or another health problem. Last Reviewed Date: 02/01/202119998816-0336 [employer]. All rights reserved. This information is not intended as a substitute for professional medical care. Always follow your healthcare professional's instructions. * Pt Handout (on AVS) - Haven Hairston RN - 01/16/2023 2:39 PM EDT Images from the original note were not included. 51229 Understanding Rectal Bleeding Rectal bleeding is when blood passes through your rectum and anus. It can happen with or without a bowel movement. Rectal bleeding may be a sign of a serious problem in your rectum, colon, or upper GI tract. Call your healthcare provider right away if you have any rectal bleeding. The GI tract The gastrointestinal (GI) tract includes the: Mouth Esophagus Stomach Small intestine Large intestine (colon) Rectum Anus The food you eat is digested as it passes through the GI tract. Solid waste leaves the body throughthe rectum. Rectal bleeding and GI problems The cause of rectal bleeding may be found in any part of the GI tract. The colon or rectum may be the site of your bleeding problem. Or bleeding may be due to problems farther up the GI tract, such as in the small intestine, duodenum, or stomach. Causes of rectal bleeding These are some possible causes: Swollen veins in the rectum and anus (hemorrhoids) Tears in or near the anus (fissures) Pockets in the colon wall that can bleed (diverticulosis) Infection Low blood flow (ischemia) Radiation damage Inflammatory bowel disease (Crohn's disease or ulcerative colitis) Ulcers in the upper GI tract and inflammation of the large intestine Abnormal tissue growths (cancer tumors or polyps) in the GI tract A bulging rectum (rectal prolapse) Abnormal blood vessels in the small intestine or in the colon Common symptoms Common symptoms are: Rectal pain, itching, or soreness Belly pain, including upper belly pain near the stomach (epigastric pain) Small drops of blood that sometimes are seen on the stool or toilet paper Stool that looks black or tarry Rectal bleeding can also happen without pain. Last Reviewed Date: 02/01/202119999521-4343 [employer]. All rights reserved. This information is not intended as a substitute for professional medical care. Always follow your healthcare professional's instructions. documented in this encounter Plan of Treatment Upcoming Encounters Date Type Specialty Care Team Description 01/18/2023 Office Visit Gastroenterology Radha García CRNP [address] [place] [address] 01/21/2023 Office Visit Dermatology Carolynn Dumont PA-C [address] [place] [address] [place] [address] 01/29/2023 [facility]iac Studies [facility] [address] [place] [address] 04/18/2023 Office Visit Family Medicine Zac Harrison MD [address] [place] [address] [place] [address] 06/11/2023 Office Visit Cardiology Sesar Vargas PA-C [address] [place] [address] 08/27/2023 Cardiac Studies Cardiology [facility] [address] [place] [address] 01/21/2024 Nurse Only Ancillary Hubert, Nurse Annual [facility] [address] [place] [address] [place] [address] Scheduled Referrals Name Type Priority Associated Diagnoses Order Schedule GASTROENTEROLOGY REFERRAL OP Referral Within 10 days (routine) Rectal bleeding Ordered: 01/16/2023 Health Maintenance Due Date Last Done Comments [...] as of this encounter Visit Diagnoses Diagnosis Routine general medical examination at a health care facility- Primary Rectal bleeding Hemorrhage of rectum and anus Acquired hypothyroidism Unspecified hypothyroidism 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 and other lower urinary tract symptoms (LUTS) Dyslipidemia, goal LDL below 100 Other and unspecified hyperlipidemia Hx of nonmelanoma skin cancer Personal history of other malignant neoplasm of skin Primary open-angle glaucoma, left eye, severe stage Primary open-angle glaucoma, right eye, mild stage Prostate cancer (HCC) Malignant neoplasm of prostate documented in this encounter Care Teams Cosmetology Instructor Relationship Specialty Start Date End Date Zac Harrison MD [address] [place] [address] [place] [address] PCP - General Family Medicine 01/28/14 documented as of this encounter
--- OUTSIDE RECORDS SUMMARY | 2023-04-20 15:54 | External Medical Summary | Summary of Care ---
Author Name Unknown Organization [facility] Address [address] [place] [address] Phone [phone] Care Team Providers Care Roller Cleaner Name Role Phone Edgar Alexander MD Primary Care Provider [phone] Reason for Visit * Reason Comments Follow Up Pt here for 6 month f/u for AK's and SK's. H/o non-melanoma skin cancer. Pt has no new concerns. Encounter Details Date Type Department Care Team Description 01/21/2023 Office Visit Dermatology [address] [place] [address] Carolynn Dumont PA-C [address] [place] [address] [place] [address] Hx of nonmelanoma skin cancer*; Actinic keratosis Allergies No known active allergiesdocumented as of this encounter (statuses as of 01/21/2023) Medications Medication Sig Dispensed Refills Start Date [...] 25 MG Oral Tablet (Coreg)Indications:Ath erosclerosis of [place] coronary artery of [place] heart with angina pectoris (HCC),Essential hypertension with [...] (Lipitor)Indications:D yslipidemia, goal LDL below 100,Atherosclerosis of [place] coronary artery of [place] heart without angina pectoris Take 1 Tablet by mouth at bedtime. 90 Tablet 1 10/16/2022 Active Levothyroxine Sodium 75 MCG Oral Tablet (Levoxyl)Indications:A cquired hypothyroidism (at least 30 min prior to breakfast or other meds) 90 Tablet 1 10/16/2022 Active Lisinopril 30 MG Oral TabletIndications:Hype rtensive heart disease with chronic systolic congestive heart failure (HCC),Primary hypertension,Atheroscl erosis of [place] coronary artery of [place] heart without angina pectoris Take 1 Tablet by mouth in the morning. 90 Tablet 1 10/16/2022 Active Oxybutynin Chloride ER 5 MG Oral Tablet Extended Release 24 Hour (Ditropan XL)Indications:BPH with obstruction/lower urinary tract symptoms Take 1 Tablet by mouth in the morning. 90 Tablet 1 10/16/2022 Active Aspirin Low Dose 81 MG Oral Tablet Delayed Release (aspirin enteric coated)Indications:Cor onary atherosclerosis of [place] coronary artery TAKE ONE TABLET BY MOUTH EVERY DAY 100 Tablet 3 12/17/2022 Active documented as of this encounter (statuses as of 01/21/2023) Active Problems Problem Noted Date Primary open-angle glaucoma, right eye, mild stage 12/12/2021 Primary open-angle glaucoma, left eye, s evere stage 04/14/2020 Hypertensive heart disease with chronic systolic congestive heart failure 10/30/2018 Actinic keratoses 06/18/2018 Overview: Efudex (06/2018 to hands/arms, face/scalp/ears/neck 03/2019, forearms/dorsal hands 08/2020) Hx of nonmelanoma skin cancer 07/09/2017 Overview: 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 History of acute anterolateral wall ND 0 12/16/1995 Primary hypertension documented as of this encounter (statuses as of 01/21/2023) Resolved Problems Problem Noted Date Resolved Date Closed fracture of right ankle with routine heal ing 06/16/2020 10/12/2020 Overview: Acute lateral malleolar fracture. Presumed acute medial malleolar tip osseous avulsion injury. Benign neoplasm of colon 01/30/2007 018 Overview: 7 mm polyp distal ascending colon, 11 mm polyp proximal sigmoid Chronic renal insufficiency 11/25/200307/2008 Overview: GFR 37.5 CORONARY ATHEROSCLER. OF [place] CORONARY VESSEL 11/23/2003 03/01/2017 Other forms of retinal detachment(361.89) 200301/28/2014 PRIM OPEN ANGLE GLAUCOMA 022 Overview: More specified on PL Acute ND, anterior wall 12/03/19 09 Inflamed seborrheic keratosis Herpes zoster 01/28/2014 Kidney disease, chronic, stage III (GFR 30-59 ml /min) 12/06/2008 Kidney disease, chronic, stage II (GFR 60-89 ml/ min) 06/13/2010 Hyperlipidemia with target LDL less than 100 12/13/2014 Overview: ICD-10 update of inactive term Subdural hematoma 03/22/2016 Malignant hypertension with systolic CHF, NYHA c lass 2 07/02/2017 History of acute anterior wall ND 11/10/2018 documented as of this encounter (statuses as of 01/21/2023) Immunizations Name Administration Dates Next Due COVID-19 mRNA, LNP-s, No Pre serve, 2-Dose Series (Moderna) 04/04/2021,09/16/2020,08/19/2020 Pneumococcal Conjugate Vacc, 13 Valent (Prevnar) 08/27/2014 Season Influenza, Quad, PF, Adjuvanted, 65+ Yrs, IM (FLUAD) 03/23/2020 Seasonal Influenza, PF, 6 mo ns & Above, IM , (Flulaval) 05/12/2018,03/01/2017 Seasonal Influenza, Quadriva lent Hd (Fluzone Hd) [...] on file documented as of this encounter Patient Instructions * Patient Instructions* Carolynn Dumont PA-C - 01/21/2023 9:39 AM EDT Skin Cryosurgery (FREEZING) Instructions Most areas treated by freezing will need very little care. You may wash normally with soap and water and leave any small crusts in place. Vaseline to treated areas 2-3 times per day is a good idea, you do not need to keep them covered with bandages. If a large blister forms and breaks, you will want to apply a light dressing to the area. CHANGE DRESSING ONCE DAILY 1. Wash hands and remove the original dressing(s) in 12-24 hours. 2. Gently clean wound(s) with soap and water. Rinse with water and pat the wound dry. 3. Apply a thin layer of Vaseline ointment with a Q-tip. 4. Cover with a bandage if area(s) is not on the face or scalp. A dressing is not required on the face or scalp. Use non-adherent dressing and paper tape if you are sensitive to band-aid adhesive sensitive. 5. If you have any concerns about the healing wound, please either or our main Dermatology office in [place] at [phone]. If an emergency, please go to your nearest Emergency Department. documented in this encounter Progress Notes * Carolynn Dumont PA-C - 01/21/2023 9:36 AM EDT SUBJECTIVE: History of Present Illness: Horace Roper is a 87 year old male seen today for follow up of AKs. Previous office visit: 06/20/2022 Last attempted treatments include: cryo to AKs Waist up exam 06/25 No new or changing lesions, per pt. REVIEW OF SYSTEMS: SKIN: No other new or changing moles. HEME/LYMPH: No new or enlarging lumps or bumps. CONSTITUTIONAL: No nausea, vomiting, fevers, chills, diarrhea. No recent unintended weight loss, night sweats, appetite or malaise. 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 MEDICA TIONS: Current Outpatient Medications Medication Sig Dispense Refill [...] by mouth once. Once daily with meals Carvedilol 25 MG Oral Tablet (Coreg) Take [...] BY MOUTH EVERY DAY 100 Tablet 3 HYDROcodone-Acetaminophen 5-325 MG Oral Tablet Take by mouth 1 Tablet every 6 hours as needed for Pain, Mild. 20 Tablet 0 No current facility-administered medications for this visit. ALLERG IES: Patient has noknown allergies. OBJECT SHRUTHI: GEN: alert, no distress, appears oriented, pleasant, and cooperative. SKIN: Detailed exam of hair, face including lids and lips, neck, bilateral upper ext. (arm, hand, fingers), palpation of scalp, and fingernails completed: 1. Forearms/dorsal hands-15 pink/white scaly plaques, few hyperkeratotic, but without induration. ASSESS MENT/PLAN: 1. Actinic keratoses (x15) on forearms/dorsal hands-Cryosurgery explained to the patient. Discussedrisk of blistering, crusting, infection, scarring, reoccurrence of lesions, hypopigmentation, post inflammatory hyperpigmentation with pt prior to procedure. Verbal consent obtained. Time out called immediately prior to procedure and patient identification and site verified. Cryo therapy performed with Liquid Nitrogen via cryo spray unit to lesion (s) noted above. Location noted in physical exam.Post op course explained. Patient alone today. Photo(s) of #1 taken, pt verbally consented to having photo(s) taken. Follow-up: 06/26 for full skin exam/AKs Applicable photos (if any) and chart reviewed by Dr. Jd Pryor. Presumed diagnoses, expected natural histories, and management options discussed with the patient at length. Questions were addressed and anticipatory guidance provided. They were instructed to contact me if additional questions, concerns, or problems develop in the interim. -There were no barriers to learning and no other pain was related to today's visit. The patient and/or person accompanying patient demonstrates understanding of the visit and treatment. Carolynn Dumont PA-C 01/21/2023 9:36 AM Ref: SELF[[id number]] NO STREET ADDRESS AVAILABLE None (office) None (fax) PCP: EDGAR ALEXANDER [address] [place] [address] [place] [address] [phone] documented in this encounter Nursing Notes * Yi Dutton LPN - 01/21/2023 9:30 AM EDT Patient identified by full name and date of Chief Complaint Patient presents with Follow Up Pt here for 6 month f/u for AK's and SK's. H/o non-melanoma skin cancer. Pt has no new concerns. documented in this encounter Plan of Treatment Upcoming Encounters Date Type Specialty Care Team Description 01/29/2023 [facility] [place] [address] 04/18/2023 Office Visit Family Medicine Edgar Alexander MD [address] [place] [address] [place] [address] 06/11/2023 Office Visit Cardiology Sesar Vargas PA-C [address] [place] [address] 06/26/2023 Office Visit Dermatology Carolynn Dumont PA-C [address] [place] [address] [place] [address] 08/27/2023 [facility] [address] [place] [address] 01/21/2024 Nurse Only Ancillary Movalley, Nurse Annual Wellness [address] [place] [address] [place] [address] Health Maintenance Due Date Last Done Comments COVID-19 Vaccine (4 - Moderna series) 05/30/2021 04/04/2021, 09/16/2020, 08/19/2020 DTaP,Tdap,and Td Vaccines (2 - Td or Tdap) 01/08/2023 01/08/2013, 05/29/2007 Influenza Vaccine (FLU shot) (#1) 2023 03/02/2022, 04/17/2021, 03/23/2020, Additional history exists TSH 10/17/2023 10/16/2022, 11/01, 10/12/2020, Additional history exists Depression Screening, Annual for Pts 12 and Over 01/17/2024 01/16/2023 Albumin/Creatinine Ratio 10/16/2025 023, 11/13/2021, [...] Procedure Name Priority Date/Time Associated Diagnosis Comments DERM IMAGE (SITE) Routine 01/21/2023 Hx of nonmelanoma skin cancer Actinic keratosis documented in this encounter Results * DERM IMAGE (SITE) (01/21/2023) 01/21/2023 Carolynn Dumont PA-C DIGITAL PHOTOG THEO documented in this encounter Visit Diagnoses Diagnosis Hx of nonmelanoma skin cancer- Primary Personal history of other malignant neoplasm of skin Actinic keratosis documented in this encounter Care Teams Roller Cleaner Relationship Specialty Start Date End Date Edgar Alexander MD [address] [place] [address] [place] [address] PCP - General Family Medicine 01/28/14 documented as of this encounter
--- OUTSIDE RECORDS SUMMARY | 2023-04-20 15:54 | External Medical Summary | Summary of Care ---
Author Name Unknown Organization [facility] Address [address] [place] [address] Phone [phone] Care Team Providers Care Automotive Fleet Supervisor Name Role Phone Zac Harrison MD Primary Care Provider [phone] Reason for Visit * Reason Onset Date Comments Advice 12/06/2022 Encounter Details Date Type Department Care Team Description 12/06/2022 Telephone Cardiology, [facility] [address] [facility] [place] [address] Sesar Vargas PA-C [address] [facility] [place] [address] Advice Allergies No known active allergiesdocumented as of this encounter (statuses as of 03/07/2023) Medications Medication Sig Dispensed Refills Start Date [...] (Lipitor)Indications :Dyslipidemia, goal LDL below 100,Atherosclerosis of [place] coronary artery of [place] heart without angina pectoris Take 1 Tablet by mouth at bedtime. 90 Tablet 1 3 Active Levothyroxine Sodium 75 MCG Oral Tablet (Levoxyl)Indications :Acquired hypothyroidism (at least 30 min prior to breakfast or other meds) 90 Tablet 1 3 Active Lisinopril 30 MG Oral TabletIndications:Hy pertensive heart disease with chronic systolic congestive heart failure (HCC),Primary hypertension,Atheros clerosis of [place] coronary artery of [place] heart without angina pectoris Take 1 Tablet by mouth in the morning. 90 Tablet 1 3 Active Oxybutynin Chloride ER 5 MG Oral Tablet Extended Release 24 Hour (Ditropan XL)Indications:BPH with obstruction/lower urinary tract symptoms Take 1 Tablet by mouth in the morning. 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 With food.. 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 History of acute anterolateral wall [place] 0 12/16/1995 Primary hypertension documented as of this encounter (statuses as of 03/07/2023) Resolved Problems Problem Noted Date Resolved Date Closed fracture of right ankle with routine heal ing 06/16/2020 10/12/2020 Overview: Acute lateral malleolar fracture. Presumed acute medial malleolar tip osseous avulsion injury. Benign neoplasm of colon 01/30/2007 018 Overview: 7 mm polyp distal ascending colon, 11 mm polyp proximal sigmoid Chronic renal insufficiency 11/25/200307/2008 Overview: GFR 37.5 CORONARY ATHEROSCLER. OF [place] CORONARY VESSEL 11/23/2003 03/01/2017 Other forms of retinal detachment(361.89) 200301/28/2014 PRIM OPEN ANGLE GLAUCOMA 022 Overview: More specified on PL Acute [place], anterior wall 12/03/19 09 Inflamed seborrheic keratosis Herpes zoster 01/28/2014 Kidney disease, chronic, stage III (GFR 30-59 ml /min) 12/06/2008 Kidney disease, chronic, stage II (GFR 60-89 ml/ min) 06/13/2010 Hyperlipidemia with target LDL less than 100 12/13/2014 Overview: ICD-10 update of inactive term Subdural hematoma 03/22/2016 Malignant hypertension with systolic CHF, NYHA c lass 2 07/02/2017 History of acute anterior wall [place] 11/10/2018 documented as of this encounter (statuses as of 03/07/2023) Immunizations Name Administration Dates Next Due COVID-19 [...] * Telephone Encounter - ANTONINA Chatman - 12/20/2022 2:32 PM EDT Spoke with pt's . Pt is scheduled in [facility] for 01/29/23. * Telephone Encounter - Eliza Veliz RN - 12/20/2022 2:23 PM EDT Manual remote device report received. Verified [employer] advisory not adjusted with most recent device check at [facility]/[employer] reps. Openings available for [facility] 01/29; would offer appointment this day for patient to come in for reprogramming. Please assist. * Telephone Encounter - KERI Gan - 12/19/2022 1:58 PM EDT Called and left detailed message how to send a manual transmission. If he calls with difficulty or issues, please have patient call [phone] and [employer] can assist him with sending the transmission. * Telephone Encounter - Eliza Veliz RN - 12/19/2022 10:14 AM EDT Patient's device interrogated/reprogrammed at [facility] with [employer] rep present 12/06/22, report from rep interrogation unavailable at this time. --Chip, can you please call patient/spouse to walk through manual remote send from home to ensure [employer] advisory reprogrammed at last interrogation? * Telephone Encounter - KERI Gan - 12/17/2022 11:04 AM EDT Patient needs scheduled for Medtr[employer] ICD update as stated. * Telephone Encounter - Eliza Veliz RN - 12/13/2022 2:32 PM EDT Please assist in scheduling in office device clinic appointment for reprogramming. Next available opening. * Telephone Encounter - KERI Gan - 12/11/2022 10:54 AM EDT Patient is on advisory list. Sesar also has a note about device being evaluated by a [employer] Rep. There was no appointment scheduled with the device clinic or Sesar on the day in question. Patient will need scheduled for [employer] advisory reprogramming of his ICD at his convenience. * Telephone Encounter - Eliza Veliz RN - 12/06/2022 3:51 PM EDT Will await device tech return next week to discuss if patient is effected by [employer] advisory. Will then follow up with patient. * Telephone Encounter - ANTONINA Cabrera - 12/06/2022 10:32 AM EDT Pt calling stating that they received a message this morning in regards to an appt that is to be today with either Sesar Vargas or Larry to talk about something with pt's pacemaker,. She states there was no phone number listed for them to call back. She is not sure if this is for [facility] or [facility]. I cannot find any notes in regards to this and no appt scheduled for today. Can someone look into this and get back to the pt? Thanks, ANTONINA Cabrera documented in this encounter Plan of Treatment Upcoming Encounters Date Type Specialty Care Team Description 04/18/2023 Office Visit Family Medicine Zac Harrison MD [address] [place] [address] [place] [address] 06/11/2023 Office Visit Cardiology Sesar Vargas PA-C [address] [place] [address] 06/26/2023 Office Visit Dermatology Carolynn Dumont PA-C [address] [place] [address] [place] [address] 08/27/2023 Cardiac Studies Cardiology [facility] [address] [place] [address] 01/21/2024 Nurse Only Ancillary [place] Nurse [facility] [address] [place] [address] [place] [address] Health Maintenance Due Date Last Done Comments [...] filedocumented as of this encounter Care Teams Automotive Fleet Supervisor Relationship Specialty Start Date End Date Zac Harrison MD [address] [place] [address] [place] [address] PCP - General Family Medicine 01/28/14 documented as of this encounter
--- OUTSIDE RECORDS SUMMARY | 2023-04-20 15:54 | External Medical Summary | Summary of Care ---
Author Name Unknown Organization [facility] Address [address] [place] [address] Phone [phone] Care Team Providers Care Criminal Intelligence Analyst Name Role Phone Zac Harrison MD Primary Care Provider [phone] Reason for Visit * Reason Onset Date Comments Test Results 01/21/2023 Encounter Details Date Type Department Care Team Description 01/21/2023 Telephone Gastroenterology, [facility] [address] [place] [address] Radha García CRNP [address] [place] [id number] Test Results Allergies No known active allergiesdocumented as of [...] 25 MG Oral Tablet (Coreg)Indications:Ath erosclerosis of [place] coronary artery of [place] heart with angina pectoris (HCC),Essential hypertension with [...] (Lipitor)Indications:D yslipidemia, goal LDL below 100,Atherosclerosis of [place] coronary artery of [place] heart without angina pectoris Take 1 Tablet by mouth at bedtime. 90 Tablet 1 10/16/2022 Active Levothyroxine Sodium 75 MCG Oral Tablet (Levoxyl)Indications:A cquired hypothyroidism (at least 30 min prior to breakfast or other meds) 90 Tablet 1 10/16/2022 Active Lisinopril 30 MG Oral TabletIndications:Hype rtensive heart disease with chronic systolic congestive heart failure (HCC),Primary hypertension,Atheroscl erosis of [place] coronary artery of [place] heart without angina pectoris Take 1 Tablet by mouth in the morning. 90 Tablet 1 10/16/2022 Active Oxybutynin Chloride ER 5 MG Oral Tablet Extended Release 24 Hour (Ditropan XL)Indications:BPH with obstruction/lower urinary tract symptoms Take 1 Tablet by mouth in the morning. 90 Tablet 1 10/16/2022 Active Aspirin Low Dose 81 MG Oral Tablet Delayed Release (aspirin enteric coated)Indications:Cor onary atherosclerosis of [place] coronary artery TAKE ONE TABLET BY MOUTH [...] Overview: squamous cell carcinoma in situ (L voodoo, L hand near thumb), Keratoacanthoma (L dorsum hand), squamous cell carcinoma (L forearm), basal cell carcinoma with squamous differentiation (L voodoo), bowenoid [place] (L voodoo) Dermatophytosis of nail 06/28/2016 Ischemic cardiomyopathy 01/10/2016 Atherosclerosis of [place] co ronary artery of [place] heart without angina pectoris 12/20/2015 Biventricular automatic [...] prior appointment. History of acute anterolateral wall [place] 0 12/16/1995 Primary hypertension documented as of [...] 11/25/200307/2008 Overview: GFR 37.5 CORONARY ATHEROSCLER. OF [place] CORONARY VESSEL 11/23/2003 03/01/2017 Other forms of retinal detachment(361.89) 200301/28/2014 PRIM OPEN ANGLE GLAUCOMA 022 Overview: More specified on PL Acute [place], anterior wall 12/03/19 09 Inflamed seborrheic keratosis Herpes zoster 01/28/2014 Kidney disease, chronic, stage III (GFR 30-59 ml /min) 12/06/2008 Kidney disease, chronic, stage II (GFR 60-89 ml/ min) 06/13/2010 Hyperlipidemia with target LDL less than 100 12/13/2014 Overview: ICD-10 update of inactive term Subdural hematoma 03/22/2016 Malignant hypertension with systolic CHF, NYHA c lass 2 07/02/2017 History of acute anterior wall [place] 11/10/2018 documented as of this encounter (statuses [...] encounter Miscellaneous Notes * Telephone Encounter - Jessica Bob LPN - 01/21/2023 11:00 AM EDT returned call, made aware of results, no further questions or concerns voiced, will go to the ED if they need too- if symptomatic * Telephone Encounter - Erin Mejia RN - 01/21/2023 10:37 AM EDT LMOM with call back number * Telephone Encounter - Erin Mejia RN - 01/21/2023 10:33 AM EDT ----- Message from ROSALIO Cordoba sent at 01/21/2023 8:34 AM EDT ----- Please let him know he is slightly anemia, H&H 13/39. When this was checked 5 months ago this was 13.5/42 and normal range is around 14/40. When I evaluated him, he was not interested in any endoscopic evaluation. If this is still true, no further blood work is needed. However, if he develops different symptoms or rectal bleeding returns he should always return or go to the ED if an emergency ROSALIO Nunez 01/21/2023 8:34 AM documented in this encounter Plan of Treatment Upcoming Encounters Date Type Specialty Care Team Description 01/29/2023 [facility] [place] [address] 04/18/2023 Office Visit Family Medicine Zac Harrison MD [address] [place] [address] [place] [address] 06/11/2023 Office Visit Cardiology Sesar Vargas PA-C [address] [place] [address] 06/26/2023 Office Visit Dermatology Carolynn Dumont PA-C [address] [place] [address] [place] [address] 08/27/2023 Cardiac Studies Cardiology [facility] [address] [place] [address] 01/21/2024 Nurse Only Ancillary [place] Nurse [facility] [address] [place] [address] [place] [address] Health Maintenance Due Date Last Done Comments [...] filedocumented as of this encounter Care Teams Criminal Intelligence Analyst Relationship Specialty Start Date End Date Zac Harrison MD [address] [place] [address] [place] [address] PCP - General Family Medicine 01/28/14 documented as of this encounter
--- OUTSIDE RECORDS SUMMARY | 2023-04-20 15:54 | External Medical Summary | Summary of Care ---
Author Name Unknown Organization [facility] Address [address] [place] [address] Phone [phone] Care Team Providers Care Pool Table Operator Name Role Phone Zac Harrison MD Primary Care Provider [phone] Reason for Visit * Reason Comments Defibrillator Clinic Encounter Details Date Type Department Care Team Description 02/15/2023 Cardiac Studies Cardiology, [facility] [address] [place], [place] [id number] [place] [address] [place] [address] Chronic systolic CHF (congestive heart failure), NYHA class 2 (HCC)*; Ischemic cardiomyopathy; Biventricular automatic implantable cardioverter defibrillator in situ; ICD (implantable cardioverter-defibrill ator) battery depletion Allergies No known active allergiesdocumented as of this encounter (statuses as of 02/27/2023) Medications Medication Sig Dispensed Refills Start Date [...] (Lipitor)Indications:D yslipidemia, goal LDL below 100,Atherosclerosis of [place] coronary artery of [place] heart without angina pectoris Take 1 Tablet by mouth at bedtime. 90 Tablet 1 10/16/2022 Active Levothyroxine Sodium 75 MCG Oral Tablet (Levoxyl)Indications:A cquired hypothyroidism (at least 30 min prior to breakfast or other meds) 90 Tablet 1 10/16/2022 Active Lisinopril 30 MG Oral TabletIndications:Hype rtensive heart disease with chronic systolic congestive heart failure (HCC),Primary hypertension,Atheroscl erosis of [place] coronary artery of [place] heart without angina pectoris Take 1 Tablet by mouth in the morning. 90 Tablet 1 10/16/2022 Active Oxybutynin Chloride ER 5 MG Oral Tablet Extended Release 24 Hour (Ditropan XL)Indications:BPH with obstruction/lower urinary tract symptoms Take 1 Tablet by mouth in the morning. 90 Tablet 1 10/16/2022 Active Aspirin Low Dose 81 MG Oral Tablet Delayed Release (aspirin enteric coated)Indications:Cor onary atherosclerosis of [place] coronary artery TAKE ONE TABLET BY MOUTH EVERY DAY 100 Tablet 3 12/17/2022 Active Carvedilol 25 MG Oral Tablet (Coreg)Indications:Ath erosclerosis of [place] coronary artery of [place] heart with angina pectoris (HCC),Essential hypertension with goal blood pressure less than 140/90 TAKE ONE TABLET BY MOUTH TWICE DAILY TAKE WITH FOOD 180 Tablet 2 02/16/2023 Active documented as of this encounter (statuses as of 02/27/2023) Active Problems Problem Noted Date Primary open-angle [...] nail 06/28/2016 Ischemic cardiomyopathy 01/10/2016 Atherosclerosis of [place] co ronary artery of [place] heart without angina pectoris 12/20/2015 Biventricular automatic [...] prior appointment. History of acute anterolateral wall [place] 0 12/16/1995 Primary hypertension documented as of this encounter (statuses as of 02/27/2023) Resolved Problems Problem Noted Date Resolved Date Closed fracture of right ankle with routine heal ing 06/16/2020 10/12/2020 Overview: Acute lateral malleolar fracture. Presumed acute medial malleolar tip osseous avulsion injury. Benign neoplasm of colon 01/30/2007 018 Overview: 7 mm polyp distal ascending colon, 11 mm polyp proximal sigmoid Chronic renal insufficiency 11/25/200307/2008 Overview: GFR 37.5 CORONARY ATHEROSCLER. OF [place] CORONARY VESSEL 11/23/2003 03/01/2017 Other forms of retinal detachment(361.89) 200301/28/2014 PRIM OPEN ANGLE GLAUCOMA 022 Overview: More specified on PL Acute [place], anterior wall 12/03/19 09 Inflamed seborrheic keratosis Herpes zoster 01/28/2014 Kidney disease, chronic, stage III (GFR 30-59 ml /min) 12/06/2008 Kidney disease, chronic, stage II (GFR 60-89 ml/ min) 06/13/2010 Hyperlipidemia with target LDL less than 100 12/13/2014 Overview: ICD-10 update of inactive term Subdural hematoma 03/22/2016 Malignant hypertension with systolic CHF, NYHA c lass 2 07/02/2017 History of acute anterior wall [place] 11/10/2018 documented as of this encounter (statuses as of 02/27/2023) Immunizations Name Administration Dates Next Due COVID-19 [...] on file documented as of this encounter Nursing Notes * Smitha Nelson RN - 02/27/2023 6:52 AM EDT Patient and implanted device were evaluated today in the [facility]. Providers please see scanned report in the Scans tab. Smitha Nelson RN * Eliza Veliz RN - 02/15/2023 2:32 PM EDT Patient and implanted device were evaluated today in the [facility]. Providers please see scanned report in the Scans tab. Optivol level within normal range upon interrogation today. ICD reprogramming B>AX performed as per [employer] advisory. Patient noted to currently be in atrial flutter upon interrogation today; episode starting on 02/10/2023. Patient feeling well, no new or worsening symptoms reported at time of interrogation. Rates controlled. Patient with anemia, thrombocytopenia, and ambulatory dysfunction with prior falls, risks of anticoagulation felt to be greater than the benefit. Findings discussed with Sesar Vargas PA-C who recommends no changes at this time give above. Remote transmission scheduled to send in 1 month to monitor afib burden. Tech: Lelia Mahoney documented in this encounter Plan of Treatment Upcoming Encounters Date Type Specialty Care Team Description 04/18/2023 Office Visit Family Medicine Zac Harrison MD [address] [place] [address] [place] [address] 06/11/2023 Office Visit Cardiology Sesar Vargas PA-C [address] [place] [address] 06/26/2023 Office Visit Dermatology Carolynn Dumont PA-C [address] [place] [address] [place] [address] 08/27/2023 Cardiac Studies Cardiology [place] [address] [place] [address] 01/21/2024 Nurse Only Ancillary [place] Nurse [facility] [address] [place] [address] [place] [address] Scheduled Orders Name Type Priority Associated Diagnoses Orde r Schedule MULTI-LEAD DEFIBRILLATOR + REPROGRAM Procedures Routine Chronic systolic CHF (congestive heart failure), NYHA class 2 (HCC) Ischemic cardiomyopathy Biventricular automatic implantable cardioverter defibrillator in situ ICD (implantable cardioverter-defibrilla tor) battery depletion Ordered: 02/15/2023 Health Maintenance Due Date Last Done Comments [...] as of this encounter Visit Diagnoses Diagnosis Chronic systolic CHF (congestive heart failure), NYHA class 2 (HCC)- Primary Chronic systolic heart failure Ischemic cardiomyopathy Other specified forms of chronic ischemic heart disease Biventricular automatic implantable cardioverter defibrillator in situ ICD (implantable cardioverter-defibrillator) battery depletion documented in this encounter Care Teams Pool Table Operator Relationship Specialty Start Date End Date Zac Harrison MD [address] [place] [address] [place] [address] PCP - General Family Medicine 01/28/14 documented as of this encounter
--- OUTSIDE RECORDS SUMMARY | 2023-04-20 15:54 | External Medical Summary | Summary of Care ---
Author Name Unknown Organization [facility] Address [address] [place] [address] Phone [phone] Care Team Providers Care Invoice Checker Name Role Phone Zac Alexander MD Primary Care Provider + [phone] Reason for Visit * Reason Comments eRx-Medication Refill Encounter Details Date Type Department Care Team Description 02/15/2023 Refill Family Medicine [address] [id number] Zac Alexander MD [address] [place] [address] [place] [address] Atherosclerosis of [place] coronary artery of [place] heart with angina pectoris (HCC); Essential hypertension with goal blood pressure less than 140/90 Allergies No known active allergiesdocumented as of this encounter (statuses as of 02/16/2023) Medications Medication Sig Dispensed Refills Start Date [...] (Lipitor)Indications :Dyslipidemia, goal LDL below 100,Atherosclerosis of [place] coronary artery of [place] heart without angina pectoris Take 1 Tablet by mouth at bedtime. 90 Tablet 1 3 Active Levothyroxine Sodium 75 MCG Oral Tablet (Levoxyl)Indications :Acquired hypothyroidism (at least 30 min prior to breakfast or other meds) 90 Tablet 1 3 Active Lisinopril 30 MG Oral TabletIndications:Hy pertensive heart disease with chronic systolic congestive heart failure (HCC),Primary hypertension,Atheros clerosis of [place] coronary artery of [place] heart without angina pectoris Take 1 Tablet by mouth in the morning. 90 Tablet 1 3 Active Oxybutynin Chloride ER 5 MG Oral Tablet Extended Release 24 Hour (Ditropan XL)Indications:BPH with obstruction/lower urinary tract symptoms Take 1 Tablet by mouth in the morning. 90 Tablet 1 3 Active Aspirin Low Dose 81 MG Oral Tablet Delayed Release (aspirin enteric coated)Indications:C oronary atherosclerosis of [place] coronary artery TAKE ONE TABLET BY MOUTH EVERY DAY 100 Tablet 3 3 Active Carvedilol 25 MG Oral Tablet (Coreg)Indications:A therosclerosis of [place] coronary artery of [place] heart with angina pectoris (HCC),Essential hypertension with goal blood pressure less than 140/90 TAKE ONE TABLET BY MOUTH TWICE DAILY TAKE WITH FOOD 180 Tablet 2 3 Active Carvedilol 25 MG Oral Tablet (Coreg)Indications:A therosclerosis of [place] coronary artery of [place] heart with angina pectoris (HCC),Essential hypertension with goal blood pressure less than 140/90 Take by mouth 1 Tablet in the morning AND 1 Tablet before bedtime. With food.. 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 History of acute anterolateral wall MS 0 12/16/1995 Primary hypertension documented as of this encounter (statuses as of 02/16/2023) Resolved Problems Problem Noted Date Resolved Date Closed fracture of right ankle with routine heal ing 06/16/2020 10/12/2020 Overview: Acute lateral malleolar fracture. Presumed acute medial malleolar tip osseous avulsion injury. Benign neoplasm of colon 01/30/2007 018 Overview: 7 mm polyp distal ascending colon, 11 mm polyp proximal sigmoid Chronic renal insufficiency 11/25/2003 07/0 07/2008 Overview: GFR 37.5 CORONARY ATHEROSCLER. OF [place] CORONARY VESSEL 11/23/2003 03/01/2017 Other forms of retinal detachment(361.89) 200301/28/2014 PRIM OPEN ANGLE GLAUCOMA 022 Overview: More specified on PL Acute MS, anterior wall 12/03/19 09 Inflamed seborrheic keratosis Herpes zoster 01/28/2014 Kidney disease, chronic, stage III (GFR 30-59 ml /min) 12/06/2008 Kidney disease, chronic, stage II (GFR 60-89 ml/ min) 06/13/2010 Hyperlipidemia with target LDL less than 100 12/13/2014 Overview: ICD-10 update of inactive term Subdural hematoma 03/22/2016 Malignant hypertension with systolic CHF, NYHA c lass 2 07/02/2017 History of acute anterior wall MS 11/10/2018 documented as of this encounter (statuses as of 02/16/2023) Immunizations Name Administration Dates Next Due COVID-19 [...] encounter Miscellaneous Notes * Telephone Encounter - Teddy Amezquita RPh - 02/16/2023 8:44 AM EDTSigned Prescriptions: Disp Refills Carvedilol 25 MG Oral Tablet (Coreg) 180 Ta*2 Sig: TAKE ONE TABLET BY MOUTH TWICE DAILY TAKE WITH FOODAuthorizing Provider: ZAC ALEXANDER User: TEDDY AMEZQUITA Electronically signed by [facility], located [facility] at 02/16/2023 8:44 AM EDT documented in this encounter Plan of Treatment Upcoming Encounters Date Type Specialty Care Team Description 04/18/2023 Office Visit Family Medicine Zac Alexander MD [address] [place] [address] [place] [address] 06/11/2023 Office Visit Cardiology Sesar Vargas PA-C [address] [place] [address] 06/26/2023 Office Visit Dermatology Carolynn Dumont PA-C [address] [place] [address] [place] [address] 08/27/2023 Cardiac Studies Cardiology Hubert, [facility] 132 [facility] [place] [address] 01/21/2024 Nurse Only Ancillary [place], Nurse Annual Wellness [address] [place] [address] [place] [address] Health Maintenance Due Date Last Done Comments [...] this encounter Visit Diagnoses Diagnosis Atherosclerosis of [place] coronary artery of [place] heart with angina pectoris (HCC) Essential hypertension with goal blood pressure less than 140/90 documented in this encounter Care Teams Invoice Checker Relationship Specialty Start Date End Date Zac Alexander MD [address] [place] [address] [place] [address] PCP - General Family Medicine 01/28/14 documented as of this encounter
--- OUTSIDE RECORDS SUMMARY | 2023-04-20 15:54 | External Medical Summary ---
Author Name Unknown Address Unknown Organization [id number] [place] [address] Laboratory Report Ordering Provider Test Date Status LOU WOODS 01/18/2023 13:09:22 Final Observation Date Value Abnormality Reference (Units ) Status Hemoglobin 01/18/2023 13:09:22 13.0 Below low normal 14 .0-16.8 (g/dL) Final Performing Location [facility] [address] [place] [address]
--- OUTSIDE RECORDS SUMMARY | 2023-04-20 15:54 | External Medical Summary ---
Author Name Unknown Address Unknown Organization [id number] [address] [place] [address] Laboratory Report Ordering Provider Test Date Status LOU WOODS 01/18/2023 13:09:22 Final Observation Date Value Abnormality Reference (Units ) Status HCT 01/18/2023 13:09:22 39.4 Below low normal 40. 0-48.4 (%) Final Performing Location [facility] - [address] [place] [address]
--- OUTSIDE RECORDS SUMMARY | 2023-04-20 15:54 | External Medical Summary | Summary of Care ---
Author Name Unknown Organization [facility] Address [address] [place] [address] Phone [phone] Care Team Providers Care Hot Top Liner Helper Name Role Phone Zac Harrison MD Primary Care Provider + [phone] Reason for Visit * Reason Comments Outpatient Testing Encounter Details Date Type Department Care Team Description 01/18/2023 Laboratory Laboratory, [facility] [address] [place] [address] [facility] [address] [place] [address] Rectal bleeding Allergies No known active allergiesdocumented as of this encounter (statuses as of 01/18/2023) Medications Medication Sig Dispensed Refills Start Date [...] 25 MG Oral Tablet (Coreg)Indications:Ath erosclerosis of [place] coronary artery of [place] heart with angina pectoris (HCC),Essential hypertension with [...] (Lipitor)Indications:D yslipidemia, goal LDL below 100,Atherosclerosis of [place] coronary artery of [place] heart without angina pectoris Take 1 Tablet by mouth at bedtime. 90 Tablet 1 10/16/2022 Active Levothyroxine Sodium 75 MCG Oral Tablet (Levoxyl)Indications:A cquired hypothyroidism (at least 30 min prior to breakfast or other meds) 90 Tablet 1 10/16/2022 Active Lisinopril 30 MG Oral TabletIndications:Hype rtensive heart disease with chronic systolic congestive heart failure (HCC),Primary hypertension,Atheroscl erosis of [place] coronary artery of [place] heart without angina pectoris Take 1 Tablet by mouth in the morning. 90 Tablet 1 10/16/2022 Active Oxybutynin Chloride ER 5 MG Oral Tablet Extended Release 24 Hour (Ditropan XL)Indications:BPH with obstruction/lower urinary tract symptoms Take 1 Tablet by mouth in the morning. 90 Tablet 1 10/16/2022 Active Aspirin Low Dose 81 MG Oral Tablet Delayed Release (aspirin enteric coated)Indications:Cor onary atherosclerosis of [place] coronary artery TAKE ONE TABLET BY MOUTH EVERY DAY 100 Tablet 3 12/17/2022 Active documented as of this encounter (statuses as of 01/18/2023) Active Problems Problem Noted Date Primary open-angle glaucoma, right eye, mild stage 12/12/2021 Primary open-angle glaucoma, left eye, s evere stage 04/14/2020 Hypertensive heart disease with chronic systolic congestive heart failure 10/30/2018 Actinic keratoses 06/18/2018 Overview: Efudex (06/2018 to hands/arms, face/scalp/ears/neck 03/2019, forearms/dorsal hands 08/2020) Hx of nonmelanoma skin cancer 07/09/2017 Overview: squamous cell carcinoma in situ (L religion, L hand near thumb), Keratoacanthoma (L dorsum hand), squamous cell carcinoma (L forearm), basal cell carcinoma with squamous differentiation (L religion), bowenoid AK (L religion) Dermatophytosis of nail 06/28/2016 Ischemic cardiomyopathy 01/10/2016 Atherosclerosis of [place] co ronary artery of [place] heart without angina pectoris 12/20/2015 Biventricular automatic [...] prior appointment. History of acute anterolateral wall [place] 0 12/16/1995 Primary hypertension documented as of this encounter (statuses as of 01/18/2023) Resolved Problems Problem Noted Date Resolved Date Closed fracture of right ankle with routine heal ing 06/16/2020 10/12/2020 Overview: Acute lateral malleolar fracture. Presumed acute medial malleolar tip osseous avulsion injury. Benign neoplasm of colon 01/30/2007 018 Overview: 7 mm polyp distal ascending colon, 11 mm polyp proximal sigmoid Chronic renal insufficiency 11/25/2003 070 07/2008 Overview: GFR 37.5 CORONARY ATHEROSCLER. OF [place] CORONARY VESSEL 11/23/2003 03/01/2017 Other forms of retinal detachment(361.89) 200301/28/2014 PRIM OPEN ANGLE GLAUCOMA 022 Overview: More specified on PL Acute [place], anterior wall 12/03/19 09 Inflamed seborrheic keratosis Herpes zoster 01/28/2014 Kidney disease, chronic, stage III (GFR 30-59 ml /min) 12/06/2008 Kidney disease, chronic, stage II (GFR 60-89 ml/ min) 06/13/2010 Hyperlipidemia with target LDL less than 100 12/13/2014 Overview: ICD-10 update of inactive term Subdural hematoma 03/22/2016 Malignant hypertension with systolic CHF, NYHA c lass 2 07/02/2017 History of acute anterior wall [place] 11/10/2018 documented as of this encounter (statuses as of 01/18/2023) Immunizations Name Administration Dates Next Due COVID-19 [...] Encounters Date Type Specialty Care Team Description 01/21/2023 Office Visit Dermatology Carolynn Dumont PA-C [address] [place] [address] [place] [address] 01/29/2023 [facility]iac [facility] 132 [facility] [place] [address] 04/18/2023 Office Visit Family Medicine Zac Harrison MD [address] [place] [address] [place] [address] 06/11/2023 Office Visit Cardiology Sesar Vargas PA-C [address] [place] [address] 08/27/2023 Cardiac Studies Cardiology Marya Gaspar [facility] [address] [facility] [place] [address] 01/21/2024 Nurse Only Ancillary Hubert, Nurse Annual Wellness [address] [place] [address] [place] [address] Health Maintenance Due Date Last Done Comments [...] Procedure Name Priority Date/Time Associated Diagnosis Comments HGB Routine 01/18/2023 1:09 PM EDT Rectal bleeding HCT Routine 01/18/2023 1:09 PM EDT Rectal bleeding documented in this encounter Results * (ABNORMAL) HCT (01/18/2023 1:09 PM EDT) HCT 39.4(L) 40.0 - 48.4 % 01/18/2023 1:19 PM EDT [facility] Blood Venous blood specimen / Unknown Venipuncture / Unknown 01/18/2023 1:09 PM EDT 01/18/2023 1:09 PM EDT Radha SANTAMARIA [facility] BLOO D ORDERABLES [facility] [place] [facility] [place] [address] * (ABNORMAL) HGB (01/18/2023 1:09 PM EDT) HGB 13.0(L) 14.0 - 16.8 g/dL 01/18/2023 1:19 PM EDT [facility] Blood Venous blood specimen / Unknown Venipuncture / Unknown 01/18/2023 1:09 PM EDT 01/18/2023 1:09 PM EDT Radha SANTAMARIA [facility] BLOO D ORDERABLES [facility] [place] [address] documented in this encounter Visit Diagnoses Diagnosis Rectal bleeding Hemorrhage of rectum and anus documented in this encounter Care Teams Hot Top Liner Helper Relationship Specialty Start Date End Date Zac Harrison MD [address] [place] [address] [place] [address] PCP - General Family Medicine 01/28/14 documented as of this encounter
--- OUTSIDE RECORDS SUMMARY | 2023-04-20 15:54 | External Medical Summary | Summary of Care ---
Author Name Unknown Organization [facility] Address [address] [place] [address] Phone [phone] Care Team Providers Care Proposal Manager Name Role Phone Zac Harrison MD Primary Care Provider + [phone] Reason for Visit * Reason Comments NEW PATIENT Rectal bleeding. 02-01 1 of this month. Fill 2 sanitary pads. Dark red. Lots of clotting. Was taking aleve at time. Nothing since then. * Evaluate & Treat - Unlimited Visits (Within 10 days (routine)) - Authorized Specialty Diagnoses / Procedures Referred By Blanca t Referred To Contact Gastroenterology Diagnoses Rectal bleeding Zac Harrison MD [address] [place] [address] [place] [address] Referral ID Status Reason Start Date Expiration Date Visits Requested Visits Authorized [id number] Authorized Specialty Services Required 01/16/2023 999 [id number] Encounter Details Date Type Department Care Team Description 01/18/2023 Office Visit Gastroenterology, [facility] [address] [facility] [place] [address] Radha García CRNP 132 [facility] [place] [address] Rectal bleeding* Allergies No known active allergiesdocumented as of [...] 25 MG Oral Tablet (Coreg)Indications:Ath erosclerosis of [place] coronary artery of [place] heart with angina pectoris (HCC),Essential hypertension with [...] (Lipitor)Indications:D yslipidemia, goal LDL below 100,Atherosclerosis of [place] coronary artery of [place] heart without angina pectoris Take 1 Tablet by mouth at bedtime. 90 Tablet 1 10/16/2022 Active Levothyroxine Sodium 75 MCG Oral Tablet (Levoxyl)Indications:A cquired hypothyroidism (at least 30 min prior to breakfast or other meds) 90 Tablet 1 10/16/2022 Active Lisinopril 30 MG Oral TabletIndications:Hype rtensive heart disease with chronic systolic congestive heart failure (HCC),Primary hypertension,Atheroscl erosis of [place] coronary artery of [place] heart without angina pectoris Take 1 Tablet by mouth in the morning. 90 Tablet 1 10/16/2022 Active Oxybutynin Chloride ER 5 MG Oral Tablet Extended Release 24 Hour (Ditropan XL)Indications:BPH with obstruction/lower urinary tract symptoms Take 1 Tablet by mouth in the morning. 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 History of acute anterolateral wall GA 0 12/16/1995 Primary hypertension documented as of [...] 0707/2008 Overview: GFR 37.5 CORONARY ATHEROSCLER. OF [place] CORONARY VESSEL 11/23/2003 03/01/2017 Other forms of retinal detachment(361.89) 200301/28/2014 PRIM OPEN ANGLE GLAUCOMA 022 Overview: More specified on PL Acute GA, anterior wall 12/03/19 09 Inflamed seborrheic keratosis Herpes zoster 01/28/2014 Kidney disease, chronic, stage III (GFR 30-59 ml /min) 12/06/2008 Kidney disease, chronic, stage II (GFR 60-89 ml/ min) 06/13/2010 Hyperlipidemia with target LDL less than 100 12/13/2014 Overview: ICD-10 update of inactive term Subdural hematoma 03/22/2016 Malignant hypertension with systolic CHF, NYHA c lass 2 07/02/2017 History of acute anterior wall GA 11/10/2018 documented as of this encounter (statuses [...] Sign Reading Time Taken Comments Blood Pressure 116/70 01/18/2023 12:39 PM EDT Pulse 80 01/18/2023 12:39 PM EDT Temperature - - Respiratory Rate - - Oxygen Saturation - - Inhaled Oxygen Concentration - - Weight 86.2 kg (190 lb 1.6 oz) 01/18/2023 12:39 PM EDT Height - - Body Mass Index 26.51 01/16/2023 2:07 PM EDT documented in this encounter Progress Notes * ROSALIO Cordoba - 01/18/2023 1:00 PM EDT DATE OF SERVICE: 01/18/2023 REFERRING PHYSICIAN: Zac Harrison MD CC: rectal bleeding Office Visit 01/18/2023 : 87 year old male with history of CHF, CAD, HTN, prostate CA, ischemic cardiomyopathy with severe left ventricular systolic dysfunction, ejection fraction 15% s/p pacer/defibrillator, glaucoma and other referred for evaluation of rectal bleeding at the request of Dr. Harrison. Pt was seen and evaluated, chart reviewed. Notes his stools were always regular. Had formed stools, once daily. Brown stools. No abd pain, nausea, vomiting. He had a change in bowel habits, January 09. This was the same he was taking Aleve for MSK pain. Notes at this time, he actually felt well from GI standpoint just change in stool. No abd pain. No nausea, vomiting. No GERD. He had urge to move bowels and this was a semi-formed with blood and blood clots around. This was dark, red. He notes he about a total of three bowel movements between January 09 and all had some blood. Nowsymptoms resolved. No abd pain. No nausea, vomiting. Stools are back to normal. Formed brown stools. No black or bloody stools. No lightheadedness or dizziness. No fever, chills, CP, SOB. Intermittent dysphagia. This has been present for a few years. Certain foods are worse, dry foods, pills, largebites. Liquids are okay. On ASA No AC Was taking Aleve Latest Reference Range & Units 07/31/22 15:45 WBC 4.00 - 10.80 K/uL 6.35 HGB 14.0 - 16.8 g/dL 13.5 (L) HCT 40.0 - 48.4 % 42.5 MCV 82.0 - 99.5 fL 95.1 PLT 140 - 400 K/uL 123 (L) Latest Reference Range & Units 07/31/22 15:45 BUN 6 - 20 mg/dL 16 Creatinine 0.6 - 1.2 mg/dL 0.9 Colon 2018: - One 2 mm polyp in the transverse colon, removed with a cold snare. Resected and retrieved.Diverticulosis in the entire examined colon.The colon was otherwise normal to the terminal ileum with retroflexed views of the ascending colon and rectum Colon 2012: One 3 mm polyp in the sigmoid colon. Resected and retrieved.Diverticulosis in the entire examined colon.Otherwise normal to the terminal ileum, with retroflexed views of the ascending colon and rectum. Colon 2009: Lipomatous ileocecal valve. This was biopsied.One 3 mm polyp in the ascending colon. Resected and retrieved.One 3 mm polyp in the proximal transverse colon. Resected and retrieved.Diverticulosis entire examined colon Colon 2006: Severe scattered diverticulosis. One 7 mm polyp in the distal ascending colon. Resectedand retrieved. One 11 mm polyp in the proximal sigmoid colon. Resected and retrieved. Past Medical History: Diagnosis Date Acute GA, anterior wall (HCC) 12/16/1995 Anterolateral GA at [facility]. Recieved TPA and did well. Adenomatous [...] tip osseous avulsion injury. Coronary atherosclerosis of ramona coronary artery Diverticulosis of colon 01/30/2007 severe [...] until PSA 20 Subdural hematoma (HCC) 07/31/2014 [place] Family History Problem Relation Age of Onset Cancer Father throar cancer Heart Disorder Mother Past Surgical History: Procedure Laterality Date BIMALLEOLAR ANKLE FX W/ FIXATION Right 07/01/2020 OPEN TREATMENT BIMALLEOLAR ANKLE FRACTURE performed by Radha Hardin DPM at OR [facility] COLONOSCOPY W/ LESION REMOVAL, SNARE 01/30/2007 polyps removed distal ascending and prox sigmoid COLONOSCOPY W/ LESION REMOVAL, SNARE 01/30/2010 polyps path shows adenomatous tissue, repeat in 3 years COLONOSCOPY W/ LESION REMOVAL, SNARE 01/01/2018 2 mm adenomatous polyp transverse colon COLONOSCOPY, DIAGNOSTIC (RECTUM) 01/22/2013 polyp--no evidence of adenomatous tissue--repeat in 5 yrs COLONOSCOPY, DIAGNOSTIC (RECTUM) 01/01/2018 adenomatous polyp, diverticulosis / [facility] ECHO, COMPLETE (2D), TRANS-THORACIC 09/18/2014 severely [...] INSERT/REPLACE ICD, SINGLE OR DUAL CHAMBER 11/16/2014 [place] NEEDLE/PUNCH BIOPSY OF PROSTATE 07/19/2014 REMOVAL OF DEEP SUPPORT IMPLANT Right 02/09/2022 REMOVAL OF IMPLANT DEEP performed by Tisha Dykes DPM at OR [facility] REMOVE CATARACT, INSERT LENS PROSTH 04/26/1999 right REMOVE CATARACT, INSERT LENS PROSTH 11/11/2000 left REPAIR DETACHED RETINA, VITRECTOMY REPAIR INITIAL INGUINAL HERNIA REDUCIBLE AGE 5 OR MORE Inguinal Hernia Repair,5+Y/O,Reducibl Social History Tobacco Use Smoking status: Never Smokeless tobacco: Former Types: Snuff Tobacco comments: Quit 30 years ago. Vaping Use Vaping Use: Never used Substance Use Topics Alcohol use: Yes Comment: 5-8 beers/year. Drug use: No Review of patient's allergies indicates: No Known Allergies Current Outpatient Medications Medication Sig Dispense Refill [...] No current facility-administered medications for this visit. REVIEW OF SYSTEMS: All other findings negative except as noted in HPI. EXAM: BP 116/70 | Pulse 80 | Wt 86.2 kg (190 lb 1.6 oz) | BMI 26.51 kg/m | BSA 2.08 m GENERAL: Well developed and well nourished in no acute distress. SKIN: No rashes, ulcers, jaundice or spider angiomata. HEENT: Normocephalic, sclera clear, pharynx normal. NECK: Supple, LUNGS: Clear to auscultation bilaterally, no respiratory distress or accessory muscles used. HEART: Regular rate & rhythm, no murmurs and no gallops. ABDOMEN: Normal bowel sounds, soft and nontender, no masses or hepatosplenomegaly. EXTREMITIES: No palmar erythema, no ankle edema, no skin discoloration, no clubbing, no cyanosis. NEURO: No lateralizing findings. Sensory/Motor grossly normal. DIAGNOSTIC TEST: Hgb, Hct ASSESSMENT AND PLAN: 87 year old male with painless rectal bleeding, BRB w/ clots about 2 weeks agowhich resolved. DDX discussed; hemorrhoidal, ischemic, infectious, diverticulosis, polyp, malignancy, AVM vs others. Incidentally he notes dysphagia to solids and pills. He does not want to have any endoscopic evaluation given his age. Dysphagia EGD recommended He is not intersected in this test but would call if he reconsiders Soft, slippery diet as tolerated Take pills with yogurt/applesauce/pudding Rectal bleeding Labs Colonoscopy discussed He is not interested as his symptoms resolved, if bleeding returns would consider Avoid constipation, straining Can use Miralax 1 capful daily as needed - ED for emergencies - Please call with any questions or concerns RETURN TO CLINIC: PRN I spent a total of 45 minutes on the date of service in review of patient's record, and previously obtained information in person and appropriate medical visit, discussion and education of plan, withpatient and/or caregiver, placing orders for tests/referral/procedures as medically necessary and documentation of pertinent clinical information in patient's medical records for their visit today. ROSALIO Nunez 01/18/2023 12:55 PM documented in this encounter Nursing Notes * Blanche Bowie LPN - 01/18/2023 12:43 PM EDT Patient identified by full name and date of Chief Complaint Patient presents with NEW PATIENT Rectal bleeding. 02-11 of this month. Fill 2 sanitary pads. Dark red. Lots of clotting. Was taking aleve at time. Nothing since then. documented in this encounter Plan of Treatment Upcoming Encounters Date Type Specialty Care Team Description 01/18/2023 Laboratory Laboratory [facility] [place] [address] Rectal bleeding 01/21/2023 Office Visit Dermatology Carolynn Dumont PA-C [address] [place] [address] [place] [address] 01/29/2023 Cardiac Studies Cardiology Marya Gaspar [facility] Devin Guzman [address] [place] [address] 04/18/2023 Office Visit Family Medicine Zac Harrison MD [address] [place] [address] [place] [address] 06/11/2023 Office Visit Cardiology Sesar Vargas PA-C [address] [place] [address] 08/27/2023 Cardiac Studies Cardiology Kurt Pace[address] [place] [address] 01/21/2024 Nurse Only Ancillary Hubert Nurse [facility] [address] [place] [address] [place] [address] Pending Results Name Type Priority Associated Diagnoses Date /Time HGB Lab Routine Rectal bleeding 01/18/2023 1:09 PM EDT HCT Lab Routine Rectal bleeding 01/18/2023 1:09 PM EDT Scheduled Orders Name Type Priority Associated Diagnoses Orde r Schedule HGB Lab Routine Rectal bleeding Expected: 01/18/2023, Expires: 4 HCT Lab Routine Rectal bleeding Expected: 01/18/2023, Expires: 4 Health Maintenance Due Date Last Done Comments [...] as of this encounter Visit Diagnoses Diagnosis Rectal bleeding- Primary Hemorrhage of rectum and anus Rectal bleeding Hemorrhage of rectum and anus documented in this encounter Care Teams Proposal Manager Relationship Specialty Start Date End Date Zac Harrison MD [address] [place] [address] [place] [address] PCP - General Family Medicine 01/28/14 documented as of this encounter"
--- OUTSIDE RECORDS SUMMARY | 2023-04-20 15:54 | External Medical Summary | Summary of Care ---
Author Name Unknown Organization [facility] Address [address] [place] [address] Phone [phone] Care Team Providers Care Multimedia Teacher Name Role Phone Zac Harrison MD Primary Care Provider [phone] Encounter Details Date Type Department Care Team Description 02/02/2023 Result Scan Unspecified Department Shasha Sanchez, DO [facility] [address] <No scans attached> Allergies No known active allergiesdocumented as of this encounter (statuses as of 02/02/2023) Medications Medication Sig Dispensed Refills Start Date [...] 25 MG Oral Tablet (Coreg)Indications:Ath erosclerosis of [place] coronary artery of [place] heart with angina pectoris (HCC),Essential hypertension with [...] (Lipitor)Indications:D yslipidemia, goal LDL below 100,Atherosclerosis of [place] coronary artery of [place] heart without angina pectoris Take 1 Tablet by mouth at bedtime. 90 Tablet 1 10/16/2022 Active Levothyroxine Sodium 75 MCG Oral Tablet (Levoxyl)Indications:A cquired hypothyroidism (at least 30 min prior to breakfast or other meds) 90 Tablet 1 10/16/2022 Active Lisinopril 30 MG Oral TabletIndications:Hype rtensive heart disease with chronic systolic congestive heart failure (HCC),Primary hypertension,Atheroscl erosis of [place] coronary artery of [place] heart without angina pectoris Take 1 Tablet by mouth in the morning. 90 Tablet 1 10/16/2022 Active Oxybutynin Chloride ER 5 MG Oral Tablet Extended Release 24 Hour (Ditropan XL)Indications:BPH with obstruction/lower urinary tract symptoms Take 1 Tablet by mouth in the morning. 90 Tablet 1 10/16/2022 Active Aspirin Low Dose 81 MG Oral Tablet Delayed Release (aspirin enteric coated)Indications:Cor onary atherosclerosis of [place] coronary artery TAKE ONE TABLET BY MOUTH EVERY DAY 100 Tablet 3 12/17/2022 Active documented as of this encounter (statuses as of 02/02/2023) Active Problems Problem Noted Date Primary open-angle glaucoma, right eye, mild stage 12/12/2021 Primary open-angle glaucoma, left eye, s evere stage 04/14/2020 Hypertensive heart disease with chronic systolic congestive heart failure 10/30/2018 Actinic keratoses 06/18/2018 Overview: Efudex (06/2018 to hands/arms, face/scalp/ears/neck 03/2019, forearms/dorsal hands 08/2020) Hx of nonmelanoma skin cancer 07/09/2017 Overview: squamous cell carcinoma in situ (L islam, L hand near thumb), Keratoacanthoma (L dorsum hand), squamous cell carcinoma (L forearm), basal cell carcinoma with squamous differentiation (L islam), bowenoid AK (L islam) Dermatophytosis of nail 06/28/2016 Ischemic cardiomyopathy 01/10/2016 Atherosclerosis of [place] co ronary artery of [place] heart without angina pectoris 12/20/2015 Biventricular automatic [...] as of this encounter (statuses as of 02/02/2023) Resolved Problems Problem Noted Date Resolved Date Closed fracture of right ankle with routine heal ing 06/16/2020 10/12/2020 Overview: Acute lateral malleolar fracture. Presumed acute medial malleolar tip osseous avulsion injury. Benign neoplasm of colon 01/30/2007 018 Overview: 7 mm polyp distal ascending colon, 11 mm polyp proximal sigmoid Chronic renal insufficiency 11/25/2003 07/0 07/2008 Overview: GFR 37.5 CORONARY ATHEROSCLER. OF [place] CORONARY VESSEL 11/23/2003 03/01/2017 Other forms of [...] as of this encounter (statuses as of 02/02/2023) Immunizations Name Administration Dates Next Due COVID-19 [...] Office Visit Family Medicine Zac Harrison MD [address] [place] [address] [place] [address] 06/11/2023 Office Visit Cardiology Sesar Vargas PA-C [address] [place] [address] 06/26/2023 Office Visit Dermatology Carolynn Dumont PA-C [address] [place] [address] [place] [address] 08/27/2023 Cardiac Studies Cardiology Marya Gaspar [facility] [place] [address] 01/21/2024 Nurse Only Ancillary Hubert Nurse [facility] [address] [place] [address] [place] [address] Health Maintenance Due Date Last Done Comments [...] Date/Time Associated Diagnosis Comments CARDIOLOGY SCANNED RESULT 02/02/2023 documented in this encounter Results * CARDIOLOGY SCANNED RESULT (02/02/2023) 02/02/2023 Shasha Sanchez DO OTHER documented in this encounter Care Teams Multimedia Teacher Relationship Specialty Start Date End Date Zac Harrison MD [address] [place] [address] [place] [address] PCP - General Family Medicine 01/28/14 documented as of this encounter
--- OUTSIDE RECORDS SUMMARY | 2023-04-20 15:54 | External Medical Summary | Summary of Care ---
Author Name Unknown Organization [facility] Address [address] [place] [address] Phone [phone] Care Team Providers Care Lead Printer Name Role Phone Zac Alexander MD Primary Care Provider [phone] Reason for Visit * Reason Comments eRx-Medication Refill Encounter Details Date Type Department Care Team Description 12/15/2022 Refill Family Medicine [address] [address] Zac Alexander MD [address] [place] [id number] CORONARY ATHEROSCLER. OF [place] CORONARY VESSEL Allergies No known active allergiesdocumented as of this encounter (statuses as of 12/17/2022) Medications Medication Sig Dispensed Refills Start Date [...] Pain, Mild. 20 Tablet 0 2 Active Carvedilol 25 MG Oral Tablet (Coreg)Indications:A therosclerosis of [place] coronary artery of [place] heart with angina pectoris (HCC),Essential hypertension with goal blood pressure less than 140/90 Take by mouth 1 Tablet in the morning AND 1 Tablet before bedtime. With food.. 180 Tablet 1 3 Active Tamsulosin HCl 0.4 MG Oral Capsule (Flomax)Indications: BPH without urinary obstruction TAKE ONE CAPSULE BY MOUTH EVERY MORNING 90 Capsule 1 3 Active Finasteride 5 MG Oral Tablet (Proscar)Indications :BPH with obstruction/lower urinary tract symptoms One daily 90 Tablet 1 3 Active Atorvastatin Calcium 40 MG Oral Tablet (Lipitor)Indications :Dyslipidemia, goal LDL below 100,Atherosclerosis of [place] coronary artery of [place] heart without angina pectoris Take 1 Tablet by mouth at bedtime. 90 Tablet 1 3 Active Levothyroxine Sodium 75 MCG Oral Tablet (Levoxyl)Indications :Acquired hypothyroidism (at least 30 min prior to breakfast or other meds) 90 Tablet 1 3 Active Lisinopril 30 MG Oral TabletIndications:Hy pertensive heart disease with chronic systolic congestive heart failure (HCC),Primary hypertension,Atheros clerosis of [place] coronary artery of [place] heart without angina pectoris Take 1 Tablet by mouth in the morning. 90 Tablet 1 3 Active Oxybutynin Chloride ER 5 MG Oral Tablet Extended Release 24 Hour (Ditropan XL)Indications:BPH with obstruction/lower urinary tract symptoms Take 1 Tablet by mouth in the morning. 90 Tablet 1 3 Active Aspirin Low Dose 81 MG Oral Tablet Delayed Release (aspirin enteric coated)Indications:C oronary atherosclerosis of [place] coronary artery TAKE ONE TABLET BY MOUTH EVERY DAY 100 Tablet 3 3 Active Aspirin Low Dose 81 MG Oral Tablet Delayed Release (aspirin enteric coated)Indications:C oronary atherosclerosis of [place] coronary artery TAKE ONE TABLET BY MOUTH EVERY DAY 100 Tablet 1 2 12/18/19 23 Discontinued documented as of this encounter (statuses as of 12/17/2022) Active Problems Problem Noted Date Primary open-angle [...] nail 06/28/2016 Ischemic cardiomyopathy 01/10/2016 Atherosclerosis of [place] co ronary artery of [place] heart without angina pectoris 12/20/2015 Biventricular automatic [...] prior appointment. History of acute anterolateral wall PR 0 12/16/1995 Primary hypertension documented as of this encounter (statuses as of 12/17/2022) Resolved Problems Problem Noted Date Resolved Date Closed fracture of right ankle with routine heal ing 06/16/2020 10/12/2020 Overview: Acute lateral malleolar fracture. Presumed acute medial malleolar tip osseous avulsion injury. Benign neoplasm of colon 01/30/2007 018 Overview: 7 mm polyp distal ascending colon, 11 mm polyp proximal sigmoid Chronic renal insufficiency 11/25/200307/2008 Overview: GFR 37.5 CORONARY ATHEROSCLER. OF [place] CORONARY VESSEL 11/23/2003 03/01/2017 Other forms of retinal detachment(361.89) 200301/28/2014 PRIM OPEN ANGLE GLAUCOMA 022 Overview: More specified on PL Acute PR, anterior wall 12/03/19 09 Inflamed seborrheic keratosis Herpes zoster 01/28/2014 Kidney disease, chronic, stage III (GFR 30-59 ml /min) 12/06/2008 Kidney disease, chronic, stage II (GFR 60-89 ml/ min) 06/13/2010 Hyperlipidemia with target LDL less than 100 12/13/2014 Overview: ICD-10 update of inactive term Subdural hematoma 03/22/2016 Malignant hypertension with systolic CHF, NYHA c lass 2 07/02/2017 History of acute anterior wall PR 11/10/2018 documented as of this encounter (statuses as of 12/17/2022) Immunizations Name Administration Dates Next Due COVID-19 [...] encounter Miscellaneous Notes * Telephone Encounter - Halie Shaw [facility] - 12/17/2022 2:47 PM EDTSigned Prescriptions: Disp Refills Aspirin Low Dose 81 MG Oral Tablet Delayed*100 Ta*3 Sig: TAKE ONE TABLET BY MOUTH EVERY DAYAuthorizing Provider: ZAC ALEXANDER AOrvandana User: HALIE SHAW--- documented in this encounter Plan of Treatment Upcoming Encounters Date Type Specialty Care Team Description 01/02/2023 Nurse Only Ancillary Hubert Nurse [facility] [address] [place] [address] [place] [address] 01/21/2023 Office Visit Dermatology Carolynn Dumont PA-C [address] [place] [address] [place] [address] 04/18/2023 Office Visit Family Medicine Zac Alexander MD [address] [place] [address] [place] [address] 06/11/2023 Office Visit Cardiology Sesar Vargas PA-C [address] [place] [address] 08/27/2023 Cardiac Studies Cardiology L[facility]pez Gas[facility] [address] [place] [address] Health Maintenance Due Date Last Done Comments [...] as of this encounter Visit Diagnoses Diagnosis CORONARY ATHEROSCLER. OF [place] CORONARY VESSEL Coronary atherosclerosis of [place] coronary artery documented in this encounter Care Teams Lead Printer Relationship Specialty Start Date End Date Zac Alexander MD [address] [place] [address] [place] [address] PCP - General Family Medicine 01/28/14 documented as of this encounter
--- OUTSIDE RECORDS SUMMARY | 2023-04-20 15:54 | External Medical Summary | Summary of Care ---
Author Name Unknown Organization [facility] Address [address] [place] [address] Phone [phone] Care Team Providers Care Wool Hat Flanger Name Role Phone Zac Harrison MD Primary Care Provider [phone] Reason for Visit * Reason Comments Follow Up 6 month follow up. D enies chest pain, palpitations, edema, SOB and dizziness. Encounter Details Date Type Department Care Team Description 11/27/2022 Office Visit Cardiology [address] [place] [id number] Sesar Vargas PA-C [address] [place] [address] Ischemic cardiomyopathy*; Chronic systolic CHF (congestive heart failure), NYHA class 2 (HCC); Biventricular automatic implantable cardioverter defibrillator in situ; ICD (implantable cardioverter-defibrilla tor) battery depletion; Atherosclerosis of [place] coronary artery of [place] heart without angina pectoris; Dyslipidemia, goal LDL below 100; Hypertensive heart disease with chronic systolic congestive heart failure (HCC) Allergies No known active allergiesdocumented as of this encounter (statuses as of 11/27/2022) Medications Medication Sig Dispensed Refills Start Date [...] Release (aspirin enteric coated)Indications:Cor onary atherosclerosis of [place] coronary artery TAKE ONE TABLET BY MOUTH EVERY DAY 100 Tablet 1 02/17/2022 Active Carvedilol 25 MG Oral Tablet (Coreg)Indications:Ath erosclerosis of [place] coronary artery of [place] heart with angina pectoris (HCC),Essential hypertension [...] (Lipitor)Indications:D yslipidemia, goal LDL below 100,Atherosclerosis of [place] coronary artery of [place] heart without angina pectoris Take 1 Tablet by mouth at bedtime. 90 Tablet 10/16/2022 Active Levothyroxine Sodium 75 MCG Oral Tablet (Levoxyl)Indications:A cquired hypothyroidism (at least 30 min prior to breakfast or other meds) 90 Tablet 1 10/16/2022 Active Lisinopril 30 MG Oral TabletIndications:Hype rtensive heart disease with chronic systolic congestive heart failure (HCC),Primary hypertension,Atheroscl erosis of [place] coronary artery of [place] heart without angina pectoris Take 1 Tablet by mouth in the morning. 90 Tablet 10/16/2022 Active Oxybutynin Chloride ER 5 MG Oral Tablet Extended Release 24 Hour (Ditropan XL)Indications:BPH with obstruction/lower urinary tract symptoms Take 1 Tablet by mouth in the morning. 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 Presumed acute medial malleolar tip osseous avulsion injury. Benign neoplasm of colon 01/30/2007 018 Overview: 7 mm polyp distal ascending colon, 11 mm polyp proximal sigmoid Chronic renal insufficiency 11/25/2003 07/0 07/2008 Overview: GFR 37.5 CORONARY ATHEROSCLER. OF [place] CORONARY VESSEL 11/23/2003 03/01/2017 Other forms of [...] as of this encounter (statuses as of 11/27/2022) Immunizations Name Administration Dates Next Due COVID-19 [...] Sign Reading Time Taken Comments Blood Pressure 166/84 11/27/2022 9:34 AM EDT Pulse 72 11/27/2022 9:34 AM EDT Temperature - - Respiratory Rate 16 11/27/2022 9:34 AM EDT Oxygen Saturation - - Inhaled Oxygen Concentration - - Weight 85 kg (187 lb 4.8 oz) 11/27/2022 9:34 AM EDT Height - - Body Mass Index 26.12 03/05/2022 2:29 PM EDT documented in this encounter Progress Notes * Sesar Vargas PA-C - 11/27/2022 9:40 AM EDT History of Present Illness: Horace Roper is a 87 year old male here today for cardiology evaluation. 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 Feeling great. No complaints or concerns. No device alarms or discharges. Ambulatory dysfunction, stable. Ambulation is via cane. He has a walker at home but does not use it. No recent falls. No chest pain, or unusual shortness of breath. No fluid retention. No dizziness, near syncope, or syncope. No melena, hematochezia, or hematuria. Past Medical and Surgical History: 1. ASCVD 1. Anterolateral myocardial infarction in 1995, treated with tPA per documentation 2. Catheterization with chronic total occlusion of the LAD, coronary disease not amendable to revascularization per prior documentation 3. Severe ischemic cardiomyopathy with severe left ventricular systolic dysfunction, ejection fraction 15% 4. Prior syncope with resultant traumatic brain injury, subdural hematoma, August 2014, per documentation. Patient notes slipping on the ice, without loss of consciousness, resultant concussion 5. Nonsustained ventricular tachycardia 6. [place] Heart Association Class 3 CHF 7. Left bundle branch block with QRS duration 135 ms 8. Status post Medtronic biventricular pacemaker implantation on November 16, 2014 9. Status post biventricular generator change by Dr. 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 Dilated aortic root and ascending aorta 3. Asymptomatic paroxysmal atrial fibrillation/fluttter 4. [id number] Score is 5 points. Patient with anemia, thrombocytopenia, and ambulatory dysfunction with prior falls, risks of anticoagulation felt to be greater than the benefit. 5. Bilateral internal carotid artery disease 6. Hypertension 7. Dyslipidemia 8. Acquired hypothyroidism 9. BPH with LUTS 10. Prostate cancer 11. Open angle glaucoma 12. History of detached retina status post vitrectomy 13. Multiple colonoscopies with polypectomies 14. Severe extensive diverticulosis 15. Close right ankle fracture, bimalleolar fracture 16. Cataract extraction 17. Inguinal hernia repair Family History: Father at 55, esophageal cancer. Mother with CAD, passing around the age of 80. Son with mitral valve disease status post repair Social History: Nonsmoker. Former smokeless tobacco user. Rare alcohol. No illegal drug use. Hemalatha Roper Complete Review of Systems: Constitutional: No fevers, sweats, or chills. HEENT: Glaucoma. Cataracts status post extraction. No history of amaurosis fugax. Dentures top and bottom. Pulmonary: No history of asthma, emphysema, COPD, sleep apnea, or PE. Cardiac: See above. GI/Abd: No dysphagia. Reflux. No melana or hematochezia. CKD. Hematologic: No coagulation disorder, anemia, or abnormal bleeding. Musculoskeletal: Arthritis. Skin: No rash. Neurologic: No history of CVA. No history of seizure. Male : Prostate cancer. BPH. Endocrine: Denies diabetes.Complete Review of Systems is as stated above, negative, or noncontributory. Review of patient's allergies indicates: No Known [...] needed for Pain, Mild. 20 Tablet 0 Aspirin Low Dose 81 MG Oral Tablet Delayed Release (aspirin enteric coated) TAKE ONE TABLET BY MOUTH EVERY DAY 100 Tablet 1 Carvedilol 25 MG Oral Tablet (Coreg) Take [...] bymouth in the morning. 90 Tablet 1 No current facility-administered medications for this visit. OBJECTIVE/PHYSICAL EXAMINATION: BP 166/84 | Pulse 72 | Resp 16 | Wt 85 kg (187 lb 4.8 oz) | BMI 26.12 kg/m | BSA 2.06 m General: Hard of hearing. Alert, no distress, comfortable and cooperative. Skin: No rash. Eyes: PER. Conjunctiva pink, sclera clear. HENT: Normocephalic. Atraumatic. Neck: Bilateral carotid bruits. No JVD. No HJR. Chest: Left subclavian pacemaker/defibrillator Heart: Irregular at 74 bpm. Soft apical systolic murmur. PMI is displaced laterally. Lungs: Diminished at the bases however clear to auscultation. Abdomen: +BS. Soft. Nontender. No masses. No organomegaly. Extremities: No clubbing, cyanosis, or significant edema. Pulses: radial=2/4, posterior tibial=2/4. Limited neurological examination: No focal deficit. Data: April 14, 2020 TTE Interpretation Summary (as per Dr. Romero): The left ventricular cavity size is mildly enlarged. The wall thickness is normal in segments with normal wall motion. The septal motion is abnormal consistent with right ventricular pacemaker. There is a large sized apical, septal, an teroseptal, anterior, inferior, posterior, and lateral wall motion abnormality with mild hypokinesis to dyskinesis of the segments. There is a small sized apical scar with entire apex akinetic to mildly dyskinetic The left ventricular diastolic function is moderately abnormal (grade II). The qualitative LV ejection fraction is 25-29% (severely reduced). The aortic valve is mildly calcified. Mild mitral regurgitation is present. Lab Results Component Value Date/Time LDL CHOLESTEROL (CALCULATED) - [facility] 02/01/2022 02:38 PM Device interrogation performed today demonstrates the followin.5 years remaining longevity. Oneepisode of nonsustained ventricular tachycardia. One episode of AT/AF, a total of 3 hours over the last 96 days. Effective Bi V pacing is reported at 5.5%. Total V pacing reported at 93.8%. OptiVol 2.0 fluid index below threshold. PVCs: 27.2 per hour. ASSESSMENT: Stable cardiac signs and symptoms. RECOMMENDATIONS/PLAN: I need to review the patient's device interrogation with a Medtronic Asw/Asuw Tactical Air Controller when available, potentially having the patient return next week for reprogramming if needed. The patient's current medications will be continued as prescribed for now. Routine Cardiac follow-upin 6 months or as needed. ER with emergencies. Sesar Vargas PA-C Department of Cardiology This chart was completed in part utilizing [employer] Speech Voice Recognition Software. Grammatical errors, random word insertions, prounoun errors, and incomplete sentences are an occasional consequence of this system due to software limitations, ambient noise, and hardware issues. Any formal questions or concerns about the content, text, or information contained within the body of this dictation should be directly addressed to the provider for clarification. documented in this encounter Nursing Notes * Alcon Don LPN - 11/27/2022 9:34 AM EDT Patient identified by full name and date of Chief Complaint Patient presents with Follow Up 6 month follow up. Denies chest pain, palpitations, edema, SOB and dizziness. Examination Room: 4 Name: Horace Roper Date of : (1935). Reason for Visit: 6 month follow yo Interim Hospitalization(s): Denies Problems/Concerns: Denies Chest Pain/SOB: Denies [facility] Discussed: Yes [facility] is a way you can talk to your provider online through e-mail. Would you like to sign up? I can activate it for you? DECLINES Patient was instructed to not get up on the exam table until directed and assisted by their provider; patient is to remain seated in the chair/ wheelchair/ exam table for fall prevention and safety reasons. Patient is aware to have assistance to step down off exam table with personnel. Patient voiced full comprehension of instructions. documented in this encounter Plan of Treatment Upcoming Encounters Date Type Specialty Care Team Description 01/02/2023 Nurse Only Ancillary Nurse [facility] [address] [place] [address] [place] [address] 01/21/2023 Office Visit Dermatology Carolynn Dumont PA-C [address] [place] [address] [place] [address] 04/18/2023 Office Visit Family Medicine Zac Harrsion MD [address] [place] [address] [place] [address] 06/11/2023 Office Visit Cardiology Sesar Vargas PA-C [address] [place] [address] 08/27/2023 Cardiac Studies Cardiology [facility] [address] [facility] [place] [address] Health Maintenance Due Date Last Done Comments [...] 03/16/1997 Influenza Vaccine (FLU shot) Completed , 04/17/2021, 03/23/2020, Additional history exists GARDASIL-HPV IMMUNIZATION SERIES Aged [...] as of this encounter Visit Diagnoses Diagnosis Ischemic cardiomyopathy- Primary Other specified forms of chronic ischemic heart disease Chronic systolic CHF (congestive heart failure), NYHA class 2 (HCC) Chronic systolic heart failure Biventricular automatic implantable cardioverter defibrillator in situ ICD (implantable cardioverter-defibrillator) battery depletion Atherosclerosis of [place] coronary artery of [place] heart without angina pectoris Dyslipidemia, goal LDL below 100 Other and unspecified hyperlipidemia Hypertensive heart disease with chronic systolic congestive heart failure (HCC) documented in this encounter Care Teams Wool Hat Flanger Relationship Specialty Start Date End Date Zac Harrison MD [address] [place] [address] [place] [address] PCP - General Family Medicine 01/28/14 documented as of this encounter"
--- OUTSIDE RECORDS SUMMARY | 2023-04-20 15:54 | External Medical Summary | Summary of Care ---
Author Name Unknown Organization [facility] Address [address] [place] [address] Phone [phone] Care Team Providers Care Mems Device Scientist Name Role Phone Edgar Alexander MD Primary Care Provider [phone] Reason for Visit * Reason Comments Follow Up Pt here for 6 month f/u for AK's and SK's. H/o non-melanoma skin cancer. Pt has no new concerns. Encounter Details Date Type Department Care Team Description 01/21/2023 Office Visit Dermatology [address] [place] [address] Carolynn Dumont PA-C [address] [place] [address] [place] [address] Hx of nonmelanoma skin cancer*; Actinic keratosis Allergies No known active allergiesdocumented as of this encounter (statuses as of 01/22/2023) Medications Medication Sig Dispensed Refills Start Date [...] 25 MG Oral Tablet (Coreg)Indications:Ath erosclerosis of tribe coronary artery of tribe heart with angina pectoris (HCC),Essential hypertension with [...] (Lipitor)Indications:D yslipidemia, goal LDL below 100,Atherosclerosis of tribe coronary artery of tribe heart without angina pectoris Take 1 Tablet by mouth at bedtime. 90 Tablet 1 10/16/2022 Active Levothyroxine Sodium 75 MCG Oral Tablet (Levoxyl)Indications:A cquired hypothyroidism (at least 30 min prior to breakfast or other meds) 90 Tablet 1 10/16/2022 Active Lisinopril 30 MG Oral TabletIndications:Hype rtensive heart disease with chronic systolic congestive heart failure (HCC),Primary hypertension,Atheroscl erosis of tribe coronary artery of tribe heart without angina pectoris Take 1 Tablet by mouth in the morning. 90 Tablet 1 10/16/2022 Active Oxybutynin Chloride ER 5 MG Oral Tablet Extended Release 24 Hour (Ditropan XL)Indications:BPH with obstruction/lower urinary tract symptoms Take 1 Tablet by mouth in the morning. 90 Tablet 1 10/16/2022 Active Aspirin Low Dose 81 MG Oral Tablet Delayed Release (aspirin enteric coated)Indications:Cor onary atherosclerosis of tribe coronary artery TAKE ONE TABLET BY MOUTH EVERY DAY 100 Tablet 3 12/17/2022 Active documented as of this encounter (statuses as of 01/22/2023) Active Problems Problem Noted Date Primary open-angle glaucoma, right eye, mild stage 12/12/2021 Primary open-angle glaucoma, left eye, s evere stage 04/14/2020 Hypertensive heart disease with chronic systolic congestive heart failure 10/30/2018 Actinic keratoses 06/18/2018 Overview: Efudex (06/2018 to hands/arms, face/scalp/ears/neck 03/2019, forearms/dorsal hands 08/2020) Hx of nonmelanoma skin cancer 07/09/2017 Overview: squamous cell carcinoma in situ (L lutheran, L hand near thumb), Keratoacanthoma (L dorsum hand), squamous cell carcinoma (L forearm), basal cell carcinoma with squamous differentiation (L lutheran), bowenoid AK (L lutheran) Dermatophytosis of nail 06/28/2016 Ischemic cardiomyopathy 01/10/2016 Atherosclerosis of tribe co ronary artery of tribe heart without angina pectoris 12/20/2015 Biventricular automatic [...] as of this encounter (statuses as of 01/22/2023) Resolved Problems Problem Noted Date Resolved Date Closed fracture of right ankle with routine heal ing 06/16/2020 10/12/2020 Overview: Acute lateral malleolar fracture. Presumed acute medial malleolar tip osseous avulsion injury. Benign neoplasm of colon 01/30/2007 018 Overview: 7 mm polyp distal ascending colon, 11 mm polyp proximal sigmoid Chronic renal insufficiency 11/25/200307/2008 Overview: GFR 37.5 CORONARY ATHEROSCLER. OF [place] CORONARY VESSEL 11/23/2003 03/01/2017 Other forms of [...] as of this encounter (statuses as of 01/22/2023) Immunizations Name Administration Dates Next Due COVID-19 mRNA, LNP-s, No Pre serve, 2-Dose Series (Moderna) 04/04/2021,09/16/2020,08/19/2020 Influenza, Whole Virus 05/01/2000 Pneumococcal Conjugate Vacc, 13 Valent (Prevnar) 08/27/2014 Pneumococcal Polysaccharide PPV23 (Pneumovax) 05/29/2005,03/16/1997 Season Influenza, Quad, PF, Adjuvanted, 65+ Yrs, IM (FLUAD) 03/23/2020 Seasonal Influenza, PF, 6 mo ns & Above, IM , (Flulaval) 05/12/2018,03/01/2017 Seasonal Influenza, Quadriva lent Hd (Fluzone Hd) 03/02/2022,04/17/2021 Seasonal Influenza, Quadriva lent, No Preserve, IM 03/22/2016,03/03/2015 Seasonal Influenza, Split, I IV3, With Preserve, Inj 02/23/2014,02/16/2013,02/21/2012,02/21,02/21/2010,03/29/2009,03/16/2008 ,03/06/2007,04/04/2006,03/30/2005,03/03,03/16/2003,04/15/2002, 1 Seasonal Influenza, Trivalen t, Adjuvanted, 65+ yrs [...] either or our main Dermatology office in [place] at [phone]. If an emergency, please go to your nearest Emergency Department. documented in this encounter Progress Notes * Jd Pryor MD - 01/22/2023 9:20 AM EDT I have seen and examined the patient via teledermatology review of chart note and photos with Carolynn Dumont PA-C. I have reviewed and agree with the assessment and plan. * Carolynn Dumont PA-C - 01/21/2023 9:36 [...] HX: squamous cell carcinoma in situ (L lutheran, L hand near thumb), Keratoacanthoma (L dorsum hand), squamous cellcarcinoma (L forearm), basal cell carcinoma with squamous differentiation (L lutheran), bowenoid AK (L lutheran), actinic keratoses (Efudex 06/2018 to hands/arms, face/scalp/ears/neck 03/2019, forearms/dorsal hands 08/2020) Reviewed, same day as visit, 0 [facility] Dermatology lab work(s)/pathology report(s) as well as [...] Carolynn Dumont PA-C 01/21/2023 9:36 AM Ref: SELF[[id number]] NO STREET ADDRESS AVAILABLE None (office) None (fax) PCP: EDGAR ALEXANDER [address] [place] [address] [place] [address] [phone] documented in this encounter Nursing Notes * [...] Care Team Description 01/29/2023 Cardiac Studies Cardiology Marya Gaspar [address] [place] [address] 04/18/2023 Office Visit Family Medicine Edgar Alexander MD [address] [place] [address] [place] [address] 06/11/2023 Office Visit Cardiology Sesar Vargas PA-C [address] [place] [address] 06/26/2023 Office Visit Dermatology Carolynn Dumont PA-C [address] [place] [address] [place] [address] 08/27/2023 Cardiac Studies Cardiology [facility], [facility] [address] [place] [address] 01/21/2024 Nurse Only Ancillary Hub[facility] Nurse [facility] [address] [place] [address] [place] [address] Health Maintenance Due Date Last Done Comments [...] keratosis documented in this encounter Care Teams Mems Device Scientist Relationship Specialty Start Date End Date Edgar Alexander MD [address] [place] [address] [place] [address] PCP - General Family Medicine 01/28/14 documented as of this encounter
--- OUTSIDE RECORDS SUMMARY | 2023-04-20 15:54 | External Medical Summary | Summary of Care ---
Author Name Unknown Organization [facility] Address [address] [place] [address] Phone [phone] Care Team Providers Care Baggage Porter Name Role Phone Zac Harrison MD Primary Care Provider [phone] Reason for Visit * Reason Comments eRx-Medication Refill Encounter Details Date Type Department Care Team Description 02/18/2023 Refill Family Medicine [address] [id number] Zac Harrison MD [address] [place] [address] [place] [id number] Atherosclerosis of [place] coronary artery of [place] heart with angina pectoris (HCC); Essential hypertension with goal blood pressure less than 140/90 Allergies No known active allergiesdocumented as of this encounter (statuses as of 02/19/2023) Medications Medication Sig Dispensed Refills Start Date [...] (Lipitor)Indications:D yslipidemia, goal LDL below 100,Atherosclerosis of [place] coronary artery of [place] heart without angina pectoris Take 1 Tablet by mouth at bedtime. 90 Tablet 1 10/16/2022 Active Levothyroxine Sodium 75 MCG Oral Tablet (Levoxyl)Indications:A cquired hypothyroidism (at least 30 min prior to breakfast or other meds) 90 Tablet 1 10/16/2022 Active Lisinopril 30 MG Oral TabletIndications:Hype rtensive heart disease with chronic systolic congestive heart failure (HCC),Primary hypertension,Atheroscl erosis of [place] coronary artery of [place] heart without angina pectoris Take 1 Tablet by mouth in the morning. 90 Tablet 1 10/16/2022 Active Oxybutynin Chloride ER 5 MG Oral Tablet Extended Release 24 Hour (Ditropan XL)Indications:BPH with obstruction/lower urinary tract symptoms Take 1 Tablet by mouth in the morning. 90 Tablet 1 10/16/2022 Active Aspirin Low Dose 81 MG Oral Tablet Delayed Release (aspirin enteric coated)Indications:Cor onary atherosclerosis of [place] coronary artery TAKE ONE TABLET BY MOUTH EVERY DAY 100 Tablet 3 12/17/2022 Active Carvedilol 25 MG Oral Tablet (Coreg)Indications:Ath erosclerosis of [place] coronary artery of [place] heart with angina pectoris (HCC),Essential hypertension with goal blood pressure less than 140/90 TAKE ONE TABLET BY MOUTH TWICE DAILY TAKE WITH FOOD 180 Tablet 2 02/16/2023 Active documented as of this encounter (statuses as of 02/19/2023) Active Problems Problem Noted Date Primary open-angle glaucoma, right eye, mild stage 12/12/2021 Primary open-angle glaucoma, left eye, s evere stage 04/14/2020 Hypertensive heart disease with chronic systolic congestive heart failure 10/30/2018 Actinic keratoses 06/18/2018 Overview: Efudex (06/2018 to hands/arms, face/scalp/ears/neck 03/2019, forearms/dorsal hands 08/2020) Hx of nonmelanoma skin cancer 07/09/2017 Overview: 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 Presumed acute medial malleolar tip osseous avulsion injury. Benign neoplasm of colon 01/30/2007 018 Overview: 7 mm polyp distal ascending colon, 11 mm polyp proximal sigmoid Chronic renal insufficiency 11/25/200307/2008 Overview: GFR 37.5 CORONARY ATHEROSCLER. OF [place] CORONARY VESSEL 11/23/2003 03/01/2017 Other forms of retinal detachment(361.89) 200301/28/2014 PRIM OPEN ANGLE GLAUCOMA 022 Overview: More specified on PL Acute HI, anterior wall 12/03/19 09 Inflamed seborrheic keratosis [...] as of this encounter (statuses as of 02/19/2023) Immunizations Name Administration Dates Next Due COVID-19 [...] encounter Miscellaneous Notes * Telephone Encounter - Juan Daniel Rodas [facility] ED - 02/19/2023 12:58 PM EDTRefused Prescriptions: Disp Refills Carvedilol 25 MG Oral Tablet (Coreg) 10 Tab*0 Sig: TAKE ONE TABLET BY MOUTH TWICE DAILY TAKE WITH FOODRefused By: [facility]EL [facility]As[facility] Refusal: Other (comment below)Reason for Refusal Comment: Rx sent 02/16/23 documented in this encounter Plan of Treatment Upcoming Encounters Date Type Specialty Care Team Description 04/18/2023 Office Visit Family Medicine Zac Harrison MD [address] [place] [address] [place] [address] 06/11/2023 Office Visit Cardiology Sesar Vargas PA-C [address] [place] [address] 06/26/2023 Office Visit Dermatology Carolynn Dumont PA-C [address] [place] [address] [place] [address] 08/27/2023 Cardiac Studies Cardiology [facility] [address] [place] [address] 01/21/2024 Nurse Only Ancillary Hub[facility], Nurse [facility] [address] [place] [address] [place] [address] Health Maintenance Due Date Last Done Comments [...] this encounter Visit Diagnoses Diagnosis Atherosclerosis of [place] coronary artery of [place] heart with angina pectoris (HCC) Essential hypertension with goal blood pressure less than 140/90 documented in this encounter Care Teams Baggage Porter Relationship Specialty Start Date End Date Zac Harrison MD [address] [place] [address] [place] [address] PCP - General Family Medicine 01/28/14 documented as of this encounter
--- OUTSIDE RECORDS SUMMARY | 2023-04-20 15:54 | External Medical Summary | Summary of Care ---
Author Name Unknown Organization [facility] Address [address] [place] [address] Phone [phone] Care Team Providers Care Hydraulic Jack Operator Name Role Phone Zac Harrison MD Primary Care Provider [phone] Encounter Details Date Type Department Care Team Description 02/19/2023 Immunization Ancillary [address] [place] [address] [facility] Flu Shot [address] [place] [address] Arrived Allergies No known active allergiesdocumented as of [...] goal LDL below 100,Atherosclerosis of [place] coronary artery of [place] heart without angina pectoris Take 1 Tablet by mouth at bedtime. 90 Tablet 1 10/16/2022 Active Levothyroxine Sodium 75 MCG Oral Tablet (Levoxyl)Indications:A cquired hypothyroidism (at least 30 min prior to breakfast or other meds) 90 Tablet 1 10/16/2022 Active Lisinopril 30 MG Oral TabletIndications:Hype rtensive heart disease with chronic systolic congestive heart failure (HCC),Primary hypertension,Atheroscl erosis of [place] coronary artery of [place] heart without angina pectoris Take 1 Tablet [...] enteric coated)Indications:Cor onary atherosclerosis of [place] coronary artery TAKE ONE TABLET BY MOUTH EVERY DAY 100 Tablet 3 12/17/2022 Active Carvedilol 25 MG Oral Tablet (Coreg)Indications:Ath erosclerosis of [place] coronary artery of [place] heart with angina pectoris (HCC),Essential hypertension with [...] Overview: squamous cell carcinoma in situ (L restorationism, L hand near thumb), Keratoacanthoma (L dorsum hand), squamous cell carcinoma (L forearm), basal cell carcinoma with squamous differentiation (L restorationism), bowenoid AK (L restorationism) Dermatophytosis of nail 06/28/2016 Ischemic cardiomyopathy 01/10/2016 Atherosclerosis of [place] co ronary artery of [place] heart without angina pectoris 12/20/2015 Biventricular automatic [...] prior appointment. History of acute anterolateral wall PA 0 12/16/1995 Primary hypertension documented as of [...] 0707/2008 Overview: GFR 37.5 CORONARY ATHEROSCLER. OF [place] CORONARY VESSEL 11/23/2003 03/01/2017 Other forms of retinal detachment(361.89) 200301/28/2014 PRIM OPEN ANGLE GLAUCOMA 022 Overview: More specified on PL Acute PA, anterior wall 12/03/19 09 Inflamed seborrheic keratosis Herpes zoster 01/28/2014 Kidney disease, chronic, stage III (GFR 30-59 ml /min) 12/06/2008 Kidney disease, chronic, stage II (GFR 60-89 ml/ min) 06/13/2010 Hyperlipidemia with target LDL less than 100 12/13/2014 Overview: ICD-10 update of inactive term Subdural hematoma 03/22/2016 Malignant hypertension with systolic CHF, NYHA c lass 2 07/02/2017 History of acute anterior wall PA 11/10/2018 documented as of this encounter (statuses [...] Office Visit Family Medicine Zac Harrison MD [address] [place] [address] [place] [address] 06/11/2023 Office Visit Cardiology Sesar Vargas PA-C [address] [place] [address] 06/26/2023 Office Visit Dermatology Carolynn Dumont PA-C [address] [place] [address] [place] [address] 08/27/2023 Cardiac Studies [facility]iology [facility] [place] [address] 01/21/2024 Nurse Only Ancillary [facility] Nurse [facility] [address] [place] [address] [place] [address] Health Maintenance Due Date Last Done Comments COVID-19 Vaccine (4 - Moderna series) 05/30/2021 04/04/2021, 09/16/2020, 08/19/2020 DTaP,Tdap,and Td Vaccines (2 - Td or Tdap) 01/08/2023 01/08/2013, 05/29/2007 Influenza Vaccine (FLU shot) (#1) 2023 02/19/2023, 03/02/2022, 04/17/2021, Additional history exists TSH 10/17/2023 10/16/2022, 11/01, [...] filedocumented as of this encounter Care Teams Hydraulic Jack Operator Relationship Specialty Start Date End Date Zac Harrison MD [address] [place] [address] [place] [address] PCP - General Family Medicine 01/28/14 documented as of this encounter
[2023-04-20 17:14] LABS: Partial Thromboplastin Ratio 2.7
[2023-04-20 17:17] LABS: Partial Thromboplastin Time 76.8 Seconds (21.0-31.0)
--- NOTE | 2023-04-20 17:47 | Hospitalist Progress Note ---
Date of Service April 20, 2023 Assessment & Plan (1) Acute on chronic HFrEF (heart failure with reduced ejection fraction): (2) Ischemic cardiomyopathy: (3) CAD (coronary artery disease): (4) Presence of combination internal cardiac defibrillator (ICD) and pacemaker: (5) HTN (hypertension): (6) HLD (hyperlipidemia): Plan Patient is an 87 yr male with H/O Chronic systolic CHF, CKD, HTN, AICD, history of ischemic cardiomyopathy, HLD, hypothyroidism, history of prostate cancer, BPH, glaucoma who presents to ED secondary to worsening lower extremity swelling and orthopnea. Acute on chronic HFrEF Ischemic Cardiomyopathy CAD S/P AICD/Pacer --CXR:No acute chest disease. --ECHO: Study was technically adequate. Compared to most recent study available in [facility] medical record, apical laminar LV thrombus is now present. Left ventricle systolic function is severely reduced. Left ventricle is severely dilated. EF 15 to 20%. Apical septum is dyskinetic, the remaining apical segments are akinetic. Otherwise severe diffuse hypokinesis. There is no mobile apical laminar LV thrombus. Left atrium is severely dilated. Mild to moderate mitral regurgitation. Trace tricuspid regurgitation. Dilated inferior vena cava with reduced collapsibility with sniff indicates an elevated right atrial pressure of 15 mmHg. --Venous Doppler:No evidence of DVT. Continue IV Lasix Added Aldactone Continue lisinopril, carvedilol, aspirin Monitor I's and O's, daily weight, renal function Appreciate Cardiology input Saturating well on room air Plan to transition to p.o. 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 due to falls and previous SDH continue coreg H/O Prostate ca undergoing surveillance Glaucoma continue eye gtts Hypothyroidism continue levothyroxine Code Status Full Code DVT Px: IV Heparin Admission and Anticipated Discharge Date Admission Date: April 18, 2023 Subjective Patient is seen and examined at bedside Subjectively feels well Leg edema improving Offers no new complaints Saturating low 90s on room Denies any chest pain, nausea, vomiting, abdominal pain, dizziness Review of Systems Review of Systems: All systems reviewed & are unremarkable except as noted in Subjective Physical Exam Physical Exam: Physical Exam: Vitals signs as noted above General Appearance:Moderately built and nourished, no apparent distress, Elderly Head: normocephalic, Atraumatic Eyes: normal inspection, EOMI Neck: supple, Trachea midline Respiratory/Chest: Normal breath sounds, CTA, No accessory muscle use, +Pacer Cardiovascular: S1, S2, + murmur Abdomen/GI:Soft, Non tender, Bowel sounds present Extremities/Musculoskeletal:normal inspection, 1+ LE edema Neurologic/Psych:AAOX3, grossly no focal neurological deficits, +Decreased hearing Skin: normal color, warm Results & Data Results & Data Vital Signs (Past 12 Hours) Vital Signs Temp Pulse Resp BP Pulse Ox O2 Del Method 04/20/23 14:43 36.8 C 69 18 138/83 92 Room Air 04/20/23 11:38 36.6 C 68 18 133/83 92 Room Air 04/20/23 07:53 36.5 C 69 16 147/91 H 96 Room Air Laboratory Results Short CBC 04/20/23 04/20/23 Range/Units 01:01 09:37 WBC 7.22 7.14 (4.8-10.8) K/ul Hgb 12.7 L 13.5 L (14.0-18.0) g/dl Hct 38.0 L 41.0 L (42.0-52.0) % Plt Count 126 L 141 (130-400) K/uL BMP 04/20/23 09:37 Sodium 135 L Potassium 3.9 Chloride 100 Carbon Dioxide 30 BUN 21 Creatinine 0.92 Glucose 122 H Calcium 9.5 Urine 04/19/23 Range/Units 21:12 Urine Color [place] Urine Appearance Cloudy A (Clear) Urine pH 7.5 (4.5-7.5) Ur Specific [place] 1.011 (1.000-1.030) Urine Protein Negative (Negative) Urine Glucose (UA) Negative (Negative)
[2023-04-20] MEDS: ATORVASTATIN 40 MG TAB PO SCH (19:56)
[2023-04-20] MEDS: cefTRIAXone SODIUM 2,000 MG in DEXTROSE 5 % MINI-B 50 ML IV SCH (23:49)
[2023-04-21 00:53] LABS: Partial Thromboplastin Ratio 2.3
[2023-04-21 00:58] LABS: Partial Thromboplastin Time 65.7 Seconds (21.0-31.0)
[2023-04-21] MEDS: LEVOTHYROXINE SODIUM 75 MCG TABLET PO SCH (06:20)
[2023-04-21 06:34] LABS: Hematocrit (blood only) 38.2 % (42.0-52.0); Hemoglobin 12.6 g/dl (14.0-18.0); Mean Corpuscular Hemoglobin 29.9 pg (25.0-34.0); Mean Corpuscular Volume 90.7 fL (80.0-100.0); Platelet Count 119 K/uL (130-400); RDW Coefficient of Variation 13.2 % (11.5-14.5); Red Blood Count 4.21 M/uL (4.70-6.10); White Blood Count 6.41 K/ul (4.8-10.8)
[2023-04-21 06:46] LABS: BUN Creatinine Ratio 20.7 (10-20); Calcium 9.3 mg/dl (8.6-10.3); Creatinine Clr Calc Pharmacy 60.6 ml/min; Est GFR (African American) 89.3 ml/min; Est GFR (Non-African American) 77.1 ml/min; Magnesium 1.9 mg/dl (1.7-2.4); Potassium 4.2 mmol/L (3.5-5.1)
[2023-04-21 07:09] LABS: Partial Thromboplastin Ratio 2.5
[2023-04-21 07:29] LABS: Partial Thromboplastin Time 70.9 Seconds (21.0-31.0)
[2023-04-21] MEDS ORDERED: APIXABAN 2.5 MG TAB PO SCH (09:00)
[2023-04-21] MEDS ORDERED: TORSEMIDE 10 MG TAB PO SCH (09:00)
[2023-04-21] MEDS: MULTIVITAMIN TAB PO SCH (09:11)
[2023-04-21] MEDS: carvediloL 25 MG TAB PO SCH (09:12)
[2023-04-21] MEDS: SPIRONOLACTONE 12.5 MG TAB PO SCH (09:12)
[2023-04-21] MEDS: TAMSULOSIN HCL 0.4 MG CAP PO SCH (09:12)
[2023-04-21] MEDS: FINASTERIDE 5 MG TAB PO SCH (09:12)
[2023-04-21] MEDS: EMPAGLIFLOZIN 10 MG TAB PO SCH (09:13)
[2023-04-21] MEDS: ASPIRIN 81 MG ECTAB PO SCH (09:14)
[2023-04-21] MEDS: ARTIFICIAL TEARS OP SCH (09:14)
[2023-04-21] MEDS: DORZOLAMIDE/TIMOLOL 22.3/6.8MG/ML 10 ML BTL OPB SCH (09:14)
[2023-04-21] MEDS: lisinopril 10 MG TAB PO SCH (09:14)
[2023-04-21] MEDS: OXYBUTYNIN CHLORIDE XL 5 MG TABCR PO SCH (09:15)
[2023-04-21] MEDS ORDERED: APIXABAN 5 MG TABLET PO SCH (10:00)
[2023-04-21] MEDS: POTASSIUM CHLORIDE CRTAB 20 MEQ TABCR PO SCH (10:14)
--- NOTE | 2023-04-21 10:56 | Cardiology Progress Note ---
Date of Service April 21, 2023 Assessment & Plan (1) Acute on chronic HFrEF (heart failure with reduced ejection fraction): (2) Ischemic cardiomyopathy: (3) Non-ST elevation [place] (NSTEMI): (4) PAF (paroxysmal atrial fibrillation): Plan Acute on chronic decompensated systolic congestive heart failure, HFrEF Appears euvolemic Start 40mg of torsemide qday BMP in 1 week s/p discharge Continue aldactone Continue Jardiance 10mg qday Continue GDMT Carvedilol, lisinopril, moderate intensity statin therapy (atorvastatin 40 mg/day), and ASA 81 mg/day. [facility] Consultation, RE: Lisinopril -> Entresto; follow up in 1 week post DC I provided 55 min of care to the patient regarding acute exacerbation of HFrEF. Admission and Anticipated Discharge Date Admission Date: April 18, 2023 Subjective Patient is seen and examined at bedside Subjectively feels well Leg edema improving Offers no new complaints Saturating low 90s on room Denies any chest pain, nausea, vomiting, abdominal pain, dizziness No significant events on telemetry Review of Systems Review of Systems: Complete Review of Systems: Constitutional: No fevers, sweats, or chills. HEENT: Glaucoma. Cataracts status post extraction. No history of amaurosis fugax. Dentures top and bottom. Pulmonary: No history of asthma, emphysema, COPD, sleep apnea, or PE. Cardiac: See above. GI/Abd: No dysphagia. Reflux. No melena or hematochezia. CKD. Hematologic: No coagulation disorder, anemia, or abnormal bleeding. Musculoskeletal: Arthritis. Skin: No rash. Neurologic: No history of CVA. No history of seizure. Male : Prostate cancer. BPH. Endocrine: Denies diabetes. Complete Review of Systems is as stated above, negative, or noncontributory. Physical Exam Physical Exam: General: Hard of hearing. Alert, no distress, comfortable and cooperative. Skin: No rash. Eyes: PER. Conjunctiva pink, sclera clear. HENT: Normocephalic. Atraumatic. Neck: Bilateral carotid bruits. + JVD. +HJR. Chest: Left subclavian pacemaker/defibrillator Heart: RRR at 74 bpm. Soft apical systolic murmur. PMI is displaced laterally. Lungs: Diminished at the bases. Right basilar rales. No wheeze. Abdomen: +BS. Soft. Nontender. No masses. No organomegaly. Extremities: No edema. No clubbing. No cyanosis. Pulses: radial=2/4, posterior tibial=1/4. Limited neurological examination: No focal deficit. Results & Data Vital Signs (Past 12 Hours) Vital Signs Temp Pulse Pulse Resp BP Pulse Ox O2 Del Method 04/21/23 07:28 36.5 C 74 18 142/90 H 96 Room Air 04/21/23 03:00 36.6 C 74 16 110/62 93 Room Air 04/21/23 00:15 72 Results BMP Results: Sodium 135 mmol/L (136-145) L 04/21/23 Potassium 4.2 mmol/L (3.5-5.1) 04/21/23 Chloride 103 mmol/L (98-107) 04/21/23 Carbon Dioxide 29 mmol/L (21-32) 04/21/23 Anion Gap 3 (3-11) 04/21/23 BUN 18 mg/dl (6-23) 04/21/23 Creatinine 0.87 mg/dl (0.6-1.4) 04/21/23 Glucose 93 mg/dl (70-99(Fasting)) 04/21/23 Results Complete Blood Count Results: RBC 4.21 M/uL (4.70-6.10) L 04/21/23 WBC 6.41 K/ul (4.8-10.8) 04/21/23 Hgb 12.6 g/dl (14.0-18.0) L 04/21/23 Hct 38.2 % (42.0-52.0) L 04/21/23 Plt Count 119 K/uL (130-400) L 04/21/23
--- NOTE | 2023-04-21 14:16 | Hospitalist Progress Note ---
Date of Service April 21, 2023 Assessment & Plan (1) Acute on chronic HFrEF (heart failure with reduced ejection fraction): (2) Ischemic cardiomyopathy: (3) CAD (coronary artery disease): (4) Presence of combination internal cardiac defibrillator (ICD) and pacemaker: (5) HTN (hypertension): (6) HLD (hyperlipidemia): Plan Patient is an 87 yr male with H/O Chronic systolic CHF, CKD, HTN, AICD, history of ischemic cardiomyopathy, HLD, hypothyroidism, history of prostate cancer, BPH, glaucoma who presents to ED secondary to worsening lower extremity swelling and orthopnea. Acute on chronic HFrEF Ischemic Cardiomyopathy CAD S/P AICD/Pacer --CXR:No acute chest disease. --ECHO: Study was technically adequate. Compared to most recent study available in [employer] medical record, apical laminar LV thrombus is now present. Left ventricle systolic function is severely reduced. Left ventricle is severely dilated. EF 15 to 20%. Apical septum is dyskinetic, the remaining apical segments are akinetic. Otherwise severe diffuse hypokinesis. There is no mobile apical laminar LV thrombus. Left atrium is severely dilated. Mild to moderate mitral regurgitation. Trace tricuspid regurgitation. Dilated inferior vena cava with reduced collapsibility with sniff indicates an elevated right atrial pressure of 15 mmHg. --Venous Doppler:No evidence of DVT. Continue IV Lasix>> transition to torsemide 40 mg daily (was on 20 mg daily at home) Added Aldactone Continue lisinopril, carvedilol, aspirin Monitor I's and O's, daily weight, renal function Appreciate Cardiology input Saturating well on room air Added Jardiance 10 mg daily Needs follow-up with cardiology upon discharge PT/OT eval prior to discharge Needs BMP in 1 week as outpatient LV thrombus ECHO as above Continue IV heparin >> transition to Eliquis as recommended by cardiology UTI Likely present on admission Urine culture growing E. coli Empirically started on Rocephin>> transition to p.o. antibiotics on discharge Hematuria likely due to UTI In setting of aspirin, heparin use Aspirin held No recurrence while on IV heparin HTN Continue current medications Monitor HLD continue statin Hx of PAF per cardiology notes was not snf anticoagulation candidate due to falls and previous SDH continue Coreg H/O Prostate ca undergoing surveillance Glaucoma continue eye gtts Hypothyroidism continue levothyroxine Code Status Full Code DVT Px: Eliquis Disposition PT/OT prior to discharge Admission and Anticipated Discharge Date Admission Date: April 18, 2023 Subjective Patient is seen and examined at bedside States feeling much better today No new complaints Discussed with cardiology today Leg edema much improved Denies any chest pain, nausea, vomiting, abdominal pain, dizziness Eager to get discharged PT carolal pending Review of Systems Review of Systems: All systems reviewed & are unremarkable except as noted in Subjective Physical Exam Physical Exam: Physical Exam: Vitals signs as noted above General Appearance:Moderately built and nourished, no apparent distress, Elderly Head: normocephalic, Atraumatic Eyes: normal inspection, EOMI Neck: supple, Trachea midline Respiratory/Chest: Normal breath sounds, CTA, No accessory muscle use, +Pacer Cardiovascular: S1, S2, + murmur Abdomen/GI:Soft, Non tender, Bowel sounds present Extremities/Musculoskeletal:normal inspection, 1+ LE edema Neurologic/Psych:AAOX3, grossly no focal neurological deficits, +Decreased hearing Skin: normal color, warm Results & Data Results & Data Vital Signs (Past 12 Hours) Vital Signs Temp Pulse Resp BP Pulse Ox O2 Del Method 04/21/23 11:06 36.4 C L 70 18 128/82 95 Room Air 04/21/23 07:28 36.5 C 74 18 142/90 H 96 Room Air 04/21/23 03:00 36.6 C 74 16 110/62 93 Room Air Laboratory Results Short CBC 04/21/23 Range/Units 06:05 WBC 6.41 (4.8-10.8) K/ul Hgb 12.6 L (14.0-18.0) g/dl Hct 38.2 L (42.0-52.0) % Plt Count 119 L (130-400) K/uL BMP 04/21/23 06:05 Sodium 135 L Potassium 4.2 Chloride 103 Carbon Dioxide 29 BUN 18 Creatinine 0.87 Glucose 93 Calcium 9.3
--- NOTE | 2023-04-21 15:14 | Discharge Summary ---
Date of Service April 21, 2023 Admission HPI Per Admitting Provider This is an 87-year-old male with significant past medical history of chronic systolic CHF, CKD, HTN, AICD, history of ischemic cardiomyopathy, HLD, hypothyroidism, history of prostate cancer, BPH, glaucoma who presents to ED secondary to worsening lower extremity swelling and orthopnea. He was seen and evaluated by PCP today. Outpatient lab work was obtained including CBC, CMP, D- dimer, BNP and chest x-ray. His BNP was elevated at 6798 and per ED provider outpatient chest x-ray concerning for volume overload. He received 1 dose of oral torsemide 20 mg in clinic. He was then referred to ED for further glendy luation. Outpatient echocardiogram was last done in April 2020 which revealed LVEF of 25 to 29%, large sized apical, septal, anterior septal, anterior, inferior, posterior and lateral wall motion abnormality with mild hypokinesis to dyskinesis of the segments, there is a small sized apical scar with entire apex akinetic to mildly dyskinetic as well as grade 2 diastolic dysfunction. Patient follows with [facility] cardiology. He has a significant cardiac history for anterior myocardial infarction 1995, treated with tPA; catheterization with chronic total occlusion of the LAD, coronary disease not amenable to revascularization, severe ischemic cardiomyopathy, prior syncope with resultant traumatic brain injury, subdural hematoma August 2014, history of nonsustained V. tach, left bundle branch block, history of [employer] biventricular pacemaker implantation on November 16, 2014, status post biventricular generator change on 08/15/2022, history of asymptomatic paroxysmal atrial fibrillation/flutter although patient with anemia, thrombocytopenia and prior falls therefore risk of anticoagulation felt to be greater than benefit. His implanted device was last evaluated February,. He presents today with worsening dyspnea on exertion orthopnea for a week and a half along with lower extremity swelling for the past 3 to 4 days. is at bedside who also helps elicit history. He states initially his symptoms started where he would be more short of breath with exertion and was still able to walk half a mile a day. Currently he cannot walk the length of the ER room without getting short of breath. Over the last 2 nights he has not slept well due to complaints of orthopnea which requires him to sleep sitting up. He feels he has not slept for the last 48 hours. He is also having a productive cough with clear to white sputum. He denies any hemoptysis. He denies fever, chills, sweats, recent illness, lightheadedness, dizziness, chest pain, PND, hemoptysis, nausea, vomiting, abdominal pain, change in bowel or urinary habits. He has been compliant with his medications. Admission Exam Per Admitting Provider Constitutional: WD/WN, vitals as above, NAD, sitting up in bed, pleasant, conversing easily Head: Normocephalic, Atraumatic Eyes: PERRL, conjunctivae normal, anicteric sclerae ENMT: external ear and nose normal, oropharynx normal Neck: trachea midline, no thyromegaly normal visual inspection Respiratory: normal respiratory effort, lungs clear to auscultation with dec reased breath sounds at bases, no wheeze, rales, rhonchi. Normal insp/exp effort, no accessory muscle use Cardiovascular: RRR, S1,S2,S4, no murmur, +2 pretibial edema, b/l pretibial excoriations noted Vessels: no JVD or carotid bruit Chest: normal inspection of chest Abdomen: normal bowel sounds, soft, nontender, no hepatosplenomegaly Musculoskeletal: no cyanosis or clubbing, extremities motor strength 5/5 Skin: no rashes, warm and dry normal turgor Neurologic: PERRL, EOMI, accommodation nl, no face palsy, no dysarthria CN's II-XI intact bilaterally and moves all extremities Psychiatric: A+Ox3, euthymic affect : deferred Principal Diagnosis Acute on chronic HFrEF Ischemic Cardiomyopathy Laminar LV thrombus Urinary tract infection Discharge Data Allergies Allergy/AdvReac Type Severity Reaction Status Date / Time No Known Allergies Allergy Verified 04/18/23 18:07 Consultations 04/18/23 17:54 ED Decision to Admit Stat 04/18/23 20:23 Consult Cardiology Routine Procedures Performed Laboratory Results WBC 6.41 K/ul (4.8-10.8) 04/21/23 06:05 RBC 4.21 M/uL (4.70-6.10) L 04/21/23 06:05 Hgb 12.6 g/dl (14.0-18.0) L 04/21/23 06:05 Hct 38.2 % (42.0-52.0) L 04/21/23 06:05 MCV 90.7 fL (80.0-100.0) 04/21/23 06:05 MCH 29.9 pg (25.0-34.0) 04/21/23 06:05 MCHC 33.0 g/dL (32.0-36.0) 04/21/23 06:05 RDW Std Deviation 44.0 fL (36.4-46.3) 04/21/23 06:05 RDW Coeff of Monika 13.2 % (11.5-14.5) 04/21/23 06:05 Plt Count 119 K/uL (130-400) L 04/21/23 06:05 MPV 11.0 fL (9.4-12.4) 04/21/23 06:05 Immature Gran % (Auto) 0.4 % 04/20/23 01:01 Neut % (Auto) 75.8 % 04/20/23 01:01 Lymph % (Auto) 12.6 % 04/20/23 01:01 [place] % (Auto) 8.7 % 04/20/23 01:01 Eos % (Auto) 2.1 % 04/20/23 01:01 Baso % (Auto) 0.4 % 04/20/23 01:01 Neut # (Auto) 5.47 K/uL (1.40-6.50) 04/20/23 01:01 Lymph # (Auto) 0.91 K/uL (1.20-3.40) L 04/20/23 01:01 [place] # (Auto) 0.63 K/uL (0.11-0.59) H 04/20/23 01:01 Eos # (Auto) 0.15 K/uL (0.00-0.50) 04/20/23 01:01 Baso # (Auto) 0.03 K/uL (0.00-0.20) 04/20/23 01:01 Immature Gran # (Auto) 0.03 K/uL (0.01-0.20) 04/20/23 01:01 PT 13.5 Seconds (9.0-12.0) H 04/18/23 15:41 INR 1.2 (0.9-1.1) H 04/18/23 15:41 APTT 70.9 Seconds (21.0-31.0) H* 04/21/23 06:05 PTT Ratio 2.5 04/21/23 06:05 Sodium 135 mmol/L (136-145) L 04/21/23 06:05 Potassium 4.2 mmol/L (3.5-5.1) 04/21/23 06:05 Chloride 103 mmol/L (98-107) 04/21/23 06:05 Carbon Dioxide 29 mmol/L (21-32) 04/21/23 06:05 Anion Gap 3 (3-11) 04/21/23 06:05 BUN 18 mg/dl (6-23) 04/21/23 06:05 Creatinine 0.87 mg/dl (0.6-1.4) 04/21/23 06:05 Est Cr Clr Drug Dosing 60.6 ml/min 04/21/23 06:05 Est GFR ( Amer) 89.3 ml/min 04/21/23 06:05 Est GFR (Non-Af Amer) 77.1 ml/min 04/21/23 06:05 BUN/Creatinine Ratio 20.7 (10-20) H 04/21/23 06:05 Glucose 93 mg/dl (70-99(Fasting)) 04/21/23 06:05 Calcium 9.3 mg/dl (8.6-10.3) 04/21/23 06:05 Magnesium 1.9 mg/dl (1.7-2.4) 04/21/23 06:05 Total Bilirubin 1.3 mg/dl (0.2-1.0) H 04/19/23 06:51 AST 18 U/L (13-39) 04/19/23 06:51 ALT 19 U/L (7-52) 04/19/23 06:51 Alkaline Phosphatase 45 U/L (34-104) 04/19/23 06:51 Troponin I High Sens 36.9 pg/ml (0-20) H 04/19/23 06:51 B-Natriuretic Peptide 465 pg/ml (0-100) H 04/21/23 06:05 Total Protein 5.9 gm/dl (6.0-8.3) L 04/19/23 06:51 Albumin 3.6 gm/dl (3.4-5.0) 04/19/23 06:51 Globulin 2.3 gm/dl (2.5-4.0) L 04/19/23 06:51 Albumin/Globulin Ratio 1.6 (0.9-2) 04/19/23 06:51 Urine Color [place] 04/19/23 21:12 Urine Appearance Cloudy (Clear) A 04/19/23 21:12 Urine pH 7.5 (4.5-7.5) 04/19/23 21:12 Ur Specific [place] 1.011 (1.000-1.030) 04/19/23 21:12 Urine Protein Negative (Negative) 04/19/23 21:12 Urine Glucose (UA) Negative (Negative) 04/19/23 21:12 Urine Ketones Negative (Negative) 04/19/23 21:12 Urine Blood 3+ (Negative) H 04/19/23 21:12 Urine Nitrite Positive (Negative) A 04/19/23 21:12 Urine Bilirubin Negative (Negative) 04/19/23 21:12 Urine Urobilinogen Positive (Negative) H 04/19/23 21:12 Ur Leukocyte Esterase 3+ (Negative) H 04/19/23 21:12 Urine WBC (Auto) >30 /hpf (0-5) H 04/19/23 21:12 Urine RBC (Auto) >30 /hpf (0-4) H 04/19/23 21:12 U Hyaline Cast (Auto) 1-5 /lpf (0-5) 04/19/23 21:12 U Epithel Cells (Auto) 0-5 /lpf (0-5) 04/19/23 21:12 Urine Bacteria (Auto) Negative (Negative) 04/19/23 21:12 Blood Type O Positive 04/19/23 21:24 Antibody Screen NEGATIVE 04/19/23 21:24 Impressions Chest X-Ray 04/18/23 15:36 XR chest 1V not portable CLINICAL HISTORY: Chest pain, nonspecific TECHNIQUE: Single frontal radiograph of the chest was obtained. Comparison: None available at the time of this dictation. FINDINGS: Pacemaker defibrillator is seen. Calcified aortic knob is seen. The lungs are clear. No evidence of pleural effusion or pneumothorax. IMPRESSION: No acute chest disease. ACT 112: Negative or not required by law. Electronically signed by: Donte Summers M.D. 04/18/2023 4:19 PM Venous Doppler Study 04/18/23 18:53 Exam(s): US VENOUS BILATERAL LOWER EXTREMITIES EXAM: US Duplex Bilateral Lower Extremities Veins CLINICAL HISTORY: Reason for exam: edema. TECHNIQUE: Real-time duplex ultrasound scan of the bilateral lower extremity veins integrating B-mode two-dimensional vascular structure, Doppler spectral analysis, color flow Doppler imaging and compression. COMPARISON: No relevant prior studies available. FINDINGS: Right deep veins: No DVT in the right common femoral, femoral, proximal deep femoral or popliteal veins. The veins demonstrate normal color flow, are normally compressible, with normal phasic flow and/or augmentation response. Right superficial veins: No thrombus in the visualized right great saphenous vein. Left deep veins: No DVT in the left common femoral, femoral, proximal deep femoral or popliteal veins. The veins demonstrate normal color flow, are normally compressible, with normal phasic flow and/or augmentation response. Left superficial veins: No thrombus in the visualized left great saphenous vein. Soft tissues: No acute findings. No popliteal cyst. IMPRESSION: No evidence of DVT. Electronically signed by: Kendell Benedict M.D. 04/19/23 05:52 AM Ordered Studies 04/18/23 18:53 US venous doppler [facility] Hospital Course (1) Acute on chronic HFrEF (heart failure with reduced ejection fraction): (2) Ischemic cardiomyopathy: (3) CAD (coronary artery disease): (4) Presence of combination internal cardiac defibrillator (ICD) and pacemaker: (5) HTN (hypertension): (6) HLD (hyperlipidemia): Plan Patient is an 87 yr male with H/O Chronic systolic CHF, CKD, HTN, AICD, history of ischemic cardiomyopathy, HLD, hypothyroidism, history of prostate cancer, BPH, glaucoma who presents to ED secondary to worsening lower extremity swelling and orthopnea. Acute on chronic HFrEF Ischemic Cardiomyopathy CAD S/P AICD/Pacer --CXR:No acute chest disease. --ECHO: Study was technically adequate. Compared to most recent study available in [employer] medical record, apical laminar LV thrombus is now present. Left ventricle systolic function is severely reduced. Left ventricle is severely dilated. EF 15 to 20%. Apical septum is dyskinetic, the remaining apical segments are akinetic. Otherwise severe diffuse hypokinesis. There is no mobile apical laminar LV thrombus. Left atrium is severely dilated. Mild to moderate mitral regurgitation. Trace tricuspid regurgitation. Dilated inferior vena cava with reduced collapsibility with sniff indicates an elevated right atrial pressure of 15 mmHg. --Venous Doppler:No evidence of DVT. Continue IV Lasix>> transition to torsemide 40 mg daily (was on 20 mg daily at home) Added Aldactone Continue lisinopril, carvedilol, aspirin Monitor I's and O's, daily weight, renal function Appreciate Cardiology input Saturating well on room air Added Jardiance 10 mg daily Needs follow-up with cardiology upon discharge PT/OT eval prior to discharge Needs BMP in 1 week as outpatient LV thrombus ECHO as above Continue IV heparin >> transition to Eliquis as recommended by cardiology UTI Likely present on admission Urine culture growing E. coli Empirically started on Rocephin>> transition to p.o. antibiotics on discharge Hematuria likely due to UTI In setting of aspirin, heparin use Aspirin held No recurrence while on IV heparin HTN Continue current medications Monitor HLD continue statin Hx of PAF per cardiology notes was not nursing home anticoagulation candidate due to falls and previous SDH continue Coreg H/O Prostate ca undergoing surveillance Glaucoma continue eye gtts Hypothyroidism continue levothyroxine Code Status Full Code DVT Px: Eliquis Disposition PT/OT prior to discharge Total Time Total Time Spent Total Time Spent (In Minutes): 56 minutes Discharge Plan Discharge Items Patient Disposition: Home - Self-Care Reason For Visit: ACUTE HFREF Discharge Diagnosis: Acute on chronic HFrEF Ischemic Cardiomyopathy Laminar LV thrombus Urinary tract infection Activity: Per Instructions section Exercise/Sports: Wait until after follow-up appointment Non-emergency contact: Primary Care Provider and Cylinder Die 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 Operator Call non-emergency contact if: you have any medication questions, your symptoms worsen, your pain is concerning for you and you have a fever Follow-up/Referrals: Zac Harrison MD [Primary Care Provider] - Diet: Heart Healthy and Low Sodium (2gm) Addtl Attending Provider Instructions: Follow-up with your primary care physician in 1 week Follow-up with your chrome plater helper Sesar Vargas PA-C/ in 2-3 weeks --- Complete antibiotic course cefdinir as prescribed --Get blood test (basic metabolic panel) in 1 week and follow-up with your primary care physician chrome plater helper with results. Do not take group of medications belonging to NSAIDs group -can increase your risk for bleeding and worsen your kidney function. List Of these medications includes but not limited to: Diclofenac Ibuprofen, Motrin, Advil Toradol,ketorolac Naproxen, Aleve, Naprosyn You can take Tylenol as needed for pain or fever When buying [id number] pain medications please consult with pharmacy if you are not sure regarding ingredients, as a lot of the pain medications have combination of NSAIDs and Tylenol. Seek immediate medical attention if your symptoms reoccur or worsen Please take all medications as instructed on discharge list below. Please call if you have any questions or problems. You can reach a [facility] hospitalist on duty at [facility] 24 hours a day by calling [phone] Pending Studies at Discharge: No Stand-Alone Forms: My [facility], Smoking Cessation Medications and DC Order Prescriptions: New torsemide 10 mg Tablet 40 mg PO QAM Qty: 30 1RF spironolactone 25 mg Tablet 12.5 mg PO DAILY Qty: 30 1RF Eliquis 5 mg Tablet 5 mg PO BID Qty: 30 1RF Jardiance 10 mg Tablet 10 mg PO DAILY Qty: 30 1RF cefdinir 300 mg capsule 300 mg PO BID Qty: 10 0RF Rx Instructions: start taking from 04/22/23 Continued atorvastatin 40 mg Tablet 40 mg PO HS oxybutynin chloride 5 mg Tablet Extended Release 24hr 5 mg PO DAILY multivitamin Tablet 1 tab PO DAILY carvedilol 25 mg Tablet 25 mg PO BID Rx Instructions: must administer with a meal/food aspirin 81 mg Tablet,Delayed Release (Dr/Ec) 81 mg PO DAILY levothyroxine 75 mcg Tablet 75 mcg PO DAILYBB tamsulosin [Flomax] 0.4 mg Capsule 0.4 mg PO DAILY lisinopril 30 mg Tablet 30 mg PO DAILY dorzolamide-timolol 22.3-6.8 mg/mL Drops 1 drp OPB BID finasteride 5 mg Tablet 5 mg PO DAILY cyclosporine [Restasis] 0.05 % Dropperette 1 drp OPB DAILY Discontinued torsemide 20 mg tablet 20 mg PO QAM naproxen sodium 220 mg Tablet 220 mg PO DAILY Discharge Orders: Discharge Order (Routine); Ordered 04/21/23 Ordered By: Tremayne Bryant Admission Data Admit Date/Time: 04/18/23 18:33 Attending Provider: Tremayne Bryant Admit Provider: Ayah Lares Primary Care Provider: Zac Harrison Other Providers: Ayah Lares; Larry Hampton
== END 2023-04-21 17:08 | disposition home or self-care (01) | DRG 291 ==
LOC: ED 15:28 → 2S 18:33 → SUATTDRO 18:33 → 2S 19:56